=== PATIENT | female | born 1975 | race Caucasian/White ===

== ENCOUNTER 2016-10-09 06:35 | Emergency (ER) | payer BC ==
[2016-10-09 06:49] VITALS: O2SAT 98
--- NOTE | 2016-10-09 07:20 | ERPHSYRPT ---
- History of Present Illness Time Seen by Provider: 10/09/16 07:14 Source: patient Exam Limitations: no limitations Patient Subjective Stated Complaint: patietn still feel bad , thorat hurts and left side under breast is sore Triage Nursing Assessment: went to [facility] wednesday and was positive for strep and mono still not feeling better. has not been to work all week, patients lung sounds clear, bowel sounds x4, pulses equal bilateral radius Physician History: The patient is a 41-year-old female who comes in complaining of not feeling well and having pain in her left lower chest and left upper quadrant in the abdomen since last night. She denies nausea vomiting or diarrhea. 4 days ago she was seen in [facility] for a sore throat. A strep test and mono test both came back positive. She is sick to penicillin so she was treated with azithromycin. Her throat still feels "funny". She tells me she had mono in 2003 and had another occurrence of mono 2 years ago. Her past medical history is significant for hypertension, mononucleosis, strep pharyngitis, diverticulitis, and cholecystectomy. She does not drink alcohol. Timing/Duration: gradual onset Severity: moderate ENT Location: throat Prearrival Treatment: prescription meds Associated Symptoms: sore throat, other (abd pain) Allergies/Adverse Reactions: Penicillins Allergy (Verified 10/28/15 14:08) Sulfa (Sulfonamide Antibiotics) [Sulfa(Sulfonamide Antibiotics)] Allergy ( Verified 10/28/15 14:08) Home Medications: Aspirin 81 gm Chew [Baby Aspirin 81 mg Chew] 81 mg DAILY 12/17/14 [History ] Clonazepam [Klonopin] 0.5 mg DAILY 12/17/14 [History] Lisinopril 10 mg BID 12/17/14 [History] Venlafaxine HCl [Effexor] 37.5 mg DAILY 12/17/14 [History] Hx Tetanus, Diphtheria Vaccination/Date Given: Yes Hx Influenza Vaccination/Date Given: Yes Hx Pneumococcal Vaccination/Date Given: Yes Immunizations Up to Date: Yes - Review of Systems Constitutional: No Fever, No Chills Eyes: No Symptoms Ears, Nose, & Throat: Throat Pain Respiratory: No Cough, No Dyspnea Cardiac: No Chest Pain, No Edema, No Syncope Abdominal/Gastrointestinal: Abdominal Pain Genitourinary Symptoms: No Dysuria Musculoskeletal: No Back Pain, No Neck Pain Skin: No Rash Neurological: No Dizziness, No Focal Weakness, No Sensory Changes Psychological: No Symptoms Endocrine: No Symptoms Hematologic/Lymphatic: No Symptoms Immunological/Allergic: No Symptoms All Other Systems: Reviewed and Negative - Past Medical History Pertinent Past Medical History: Yes Neurological History: No Pertinent History ENT History: No Pertinent History Cardiac History: No Pertinent History Respiratory History: No Pertinent History Endocrine Medical History: No Pertinent History Musculoskeletal History: No Pertinent History, Other GI Medical History: No Pertinent History History: Other Psycho-Social History: Anxiety Female Reproductive Disorders: Other Other Medical History: mononucleosis - Past Surgical History Past Surgical History: Yes Neuro Surgical History: No Pertinent History Cardiac: No Pertinent History Respiratory: No Pertinent History Gastrointestinal: Cholecystectomy Musculoskeletal: No Pertinent History Female Surgical History: Hysterectomy - Social History Smoking Status: Never smoker Exposure to second hand smoke: No Drug Use: none Patient Lives Alone: No - Female History Hx Now: No - Nursing Vital Signs Nursing Vital Signs: Initial Vital Signs Temperature 97.7 F Temperature Source Oral Pulse Rate 59 Respiratory Rate 18 Blood Pressure [Right Arm] 105/65 Pain Intensity 9 - Physical Exam General Appearance: mild distress Eye Exam: bilateral eye: PERRL, EOMI Nasal Exam: normal inspection Throat Exam: pharynx normal, moist mucus membranes, No tonsillar exudate Neck Exam: tender lateral Cardiovascular/Respiratory Exam: normal breath sounds, regular rate/rhythm Abdominal Exam: tenderness (LUQ), spleenomegaly Neurologic Exam: alert, oriented x 3, sensation nml, No motor deficits Skin Exam: normal color, warm, dry SpO2 Interpretation: normal SpO2: 98 Oxygen Delivery: Room Air - Radiology Ultrasound Exam Left Abdomen Ultrasound: discussed w/radiologist, Other (mild splenomegaly per Dr Herrmann) Ordered Tests: Active Orders 24 hr Category Date Time Status Ultrasound Liver or Spleen [LIVER OR SPLEEN] [US] Stat Exams 10/09/16 08:43 Completed CBC W DIFF Stat Lab 10/09/16 07:49 Completed CMP Stat Lab 10/09/16 07:49 Completed CULTURE, THROAT Stat Lab 10/09/16 07:49 Received HCG QUALITATIVE,SERUM Stat Lab 10/09/16 08:00 Completed LIPASE Stat Lab 10/09/16 08:00 Completed [place] Screen Stat Lab 10/09/16 07:49 Completed STREP SCREEN-BETA A Stat Lab 10/09/16 07:49 Completed UA Stat Lab 10/09/16 08:00 Completed Lab/Rad Data: Laboratory Result Diagrams 10/09/16 07:49 10/09/16 07:49 Laboratory Results 10/09/16 10/09/16 10/09/16 Range/Units 08:00 08:00 08:00 WBC (4.0-10.5) K/mm3 RBC (4.1-5.4) M/mm3 Hgb (12.0-16.0) gm/dl Hct (35-47) % MCV (78-100) fl MCH (26-32) pg MCHC (32-36) g/dl RDW (11.5-14.0) % Plt Count (150-450) K/mm3 MPV (6-9.5) fl Gran % (36.0-66.0) % Lymphocytes % (24.0-44.0) % Monocytes % (0.0-12.0) % Eosinophils % (0.00-5.0) % Basophils % (0.0-0.4) % Basophils # (0-0.4) Sodium (136-145) mEq/L Potassium (3.5-5.1) mEq/L Chloride (98-107) mEq/L Carbon Dioxide (21-32) mEq/L Anion Gap (5-15) MEQ/L BUN (9-20) mg/dL Creatinine (0.55-1.30) mg/dl Estimated GFR ML/MIN Glucose (70-110) MG/DL Calcium (8.5-10.1) mg/dL Total Bilirubin (0.2-1.0) mg/dL AST (15-37) U/L ALT (12-78) U/L Alkaline Phosphatase (46-116) U/L Serum Total Protein (6.4-8.2) gm/dL Albumin (3.4-5.0) g/dL Lipase 120 (73-393) U/L Serum , Qual NEGATIVE (Negative) Ur Collection Type VOID Urine Color YELLOW (YELLOW) Urine Appearance CLEAR (CLEAR) Urine pH 5.0 (5-6) Ur Specific Butler 1.015 (1.005-1.025) Urine Protein NEGATIVE (Negative) Urine Glucose (UA) NEGATIVE (NEGATIVE) mg/dL Urine Ketones NEGATIVE (NEGATIVE) Urine Nitrite NEGATIVE (NEGATIVE) Urine Bilirubin NEGATIVE (NEGATIVE) Urine Urobilinogen 0.2 (0-1) mg/dL Urine WBC (Auto) NEGATIVE (NEGATIVE) Urine RBC (Auto) NEGATIVE (0-5) Cornelius/ul Monoscreen (Negative) Streptococcus Screen (Negative) Specimen Received 10/09/16 0842 10/09/16 10/09/16 10/09/16 Range/Units 07:49 07:49 07:49 WBC 8.0 (4.0-10.5) K/mm3 RBC 4.96 (4.1-5.4) M/mm3 Hgb 13.8 (12.0-16.0) gm/dl Hct 42.0 (35-47) % MCV 84.7 (78-100) fl MCH 27.8 (26-32) pg MCHC 32.9 (32-36) g/dl RDW 12.7 (11.5-14.0) % Plt Count 190 (150-450) K/mm3 MPV 10.6 H (6-9.5) fl Gran % 58.2 (36.0-66.0) % Lymphocytes % 29.8 (24.0-44.0) % Monocytes % 9.1 (0.0-12.0) % Eosinophils % 2.3 (0.00-5.0) % Basophils % 0.6 (0.0-0.4) % Basophils # 0.05 (0-0.4) Sodium 140 (136-145) mEq/L Potassium 4.1 (3.5-5.1) mEq/L Chloride 105 (98-107) mEq/L Carbon Dioxide 26.5 (21-32) mEq/L Anion Gap 12.2 (5-15) MEQ/L BUN 10 (9-20) mg/dL Creatinine 0.86 (0.55-1.30) mg/dl Estimated GFR > 60 ML/MIN Glucose 150 H (70-110) MG/DL Calcium 8.9 (8.5-10.1) mg/dL Total Bilirubin 0.4 (0.2-1.0) mg/dL AST 17 (15-37) U/L ALT 39 (12-78) U/L Alkaline Phosphatase 88 (46-116) U/L Serum Total Protein 7.0 (6.4-8.2) gm/dL Albumin 3.4 (3.4-5.0) g/dL Lipase (73-393) U/L Serum , Qual (Negative) Ur Collection Type Urine Color (YELLOW) Urine Appearance (CLEAR) Urine pH (5-6) Ur Specific Butler (1.005-1.025) Urine Protein (Negative) Urine Glucose (UA) (NEGATIVE) mg/dL Urine Ketones (NEGATIVE) Urine Nitrite (NEGATIVE) Urine Bilirubin (NEGATIVE) Urine Urobilinogen (0-1) mg/dL Urine WBC (Auto) (NEGATIVE) Urine RBC (Auto) (0-5) Cornelius/ul Monoscreen POSITIVE (Negative) Streptococcus Screen (Negative) Specimen Received 10/09/16 Range/Units 07:49 WBC (4.0-10.5) K/mm3 RBC (4.1-5.4) M/mm3 Hgb (12.0-16.0) gm/dl Hct (35-47) % MCV (78-100) fl MCH (26-32) pg MCHC (32-36) g/dl RDW (11.5-14.0) % Plt Count (150-450) K/mm3 MPV (6-9.5) fl Gran % (36.0-66.0) % Lymphocytes % (24.0-44.0) % Monocytes % (0.0-12.0) % Eosinophils % (0.00-5.0) % Basophils % (0.0-0.4) % Basophils # (0-0.4) Sodium (136-145) mEq/L Potassium (3.5-5.1) mEq/L Chloride (98-107) mEq/L Carbon Dioxide (21-32) mEq/L Anion Gap (5-15) MEQ/L BUN (9-20) mg/dL Creatinine (0.55-1.30) mg/dl Estimated GFR ML/MIN Glucose (70-110) MG/DL Calcium (8.5-10.1) mg/dL Total Bilirubin (0.2-1.0) mg/dL AST (15-37) U/L ALT (12-78) U/L Alkaline Phosphatase (46-116) U/L Serum Total Protein (6.4-8.2) gm/dL Albumin (3.4-5.0) g/dL Lipase (73-393) U/L Serum , Qual (Negative) Ur Collection Type Urine Color (YELLOW) Urine Appearance (CLEAR) Urine pH (5-6) Ur Specific Butler (1.005-1.025) Urine Protein (Negative) Urine Glucose (UA) (NEGATIVE) mg/dL Urine Ketones (NEGATIVE) Urine Nitrite (NEGATIVE) Urine Bilirubin (NEGATIVE) Urine Urobilinogen (0-1) mg/dL Urine WBC (Auto) (NEGATIVE) Urine RBC (Auto) (0-5) Cornelius/ul Monoscreen (Negative) Streptococcus Screen NEGATIVE (Negative) Specimen Received - Progress Progress: unchanged Discussed with : Kenroy Counseled pt/family regarding: lab results, diagnosis, need for follow-up, rad results - Departure Time of Disposition: 10:03 Departure Disposition: Home Clinical Impression: Splenomegaly Condition: Stable Critical Care Time: No Instructions: Fever (Symptom) -- Adult Additional Instructions: The ultrasound results show you have a mildly enlarged spleen today. I have discussed all of the laboratory and imaging study findings including the strep test and Monospot tests with Dr. Jasmine. Take Tylenol and ibuprofen as needed for pain. Continue with the azithromycin as directed. Avoid any trauma or abrupt physical contact to your abdomen. Follow-up with Dr. Jasmine on Wednesday at 3:30.
[2016-10-09 07:51] LABS: BASOPHIL % 0.6 % (0.0-0.4); Eosinophil % 2.3 % (0.00-5.0); Granulocytes % 58.2 % (36.0-66.0); Mean Cell Volume 84.7 fl (78-100); Mean Corpuscular Hemoglobin 27.8 pg (26-32); Mean Platelet Volume 10.6 fl (6-9.5); Monocytes % 9.1 % (0.0-12.0); Platelet Count 190 K/mm3 (150-450); Red Blood Count 4.96 M/mm3 (4.1-5.4); Red Cell Distribution Width 12.7 % (11.5-14.0)
[2016-10-09 08:09] LABS: Lymphocytes % 29.8 % (24.0-44.0)
[2016-10-09 08:21] LABS: ALBUMIN 3.4 g/dL (3.4-5.0); ALKALINE PHOSPHATASE 88 U/L (46-116); ANION GAP 12.2 MEQ/L (5-15); BILIRUBIN,TOTAL 0.4 mg/dL (0.2-1.0); BLOOD UREA NITROGEN 10 mg/dL (9-20); CHLORIDE 105 mEq/L (98-107); Carbon Dioxide 26.5 mEq/L (21-32); Glucose 150 MG/DL (70-110); Potassium 4.1 mEq/L (3.5-5.1); SGOT/AST 17 U/L (15-37); SGPT/ALT 39 U/L (12-78); SODIUM 140 mEq/L (136-145)
[2016-10-09 08:40] LABS: COMPLETE URINE MICROSCOPIC? NO; Collection Type VOID
--- NOTE | 2016-10-09 09:40 | XRAY ---
Indication: Mononucleosis. Two-dimensional sonogram of the spleen performed. Comparison: August 23, 2013. Spleen again homogeneous in echogenicity with normal color perfusion. Today the spleen measures 13 cm in greatest dimension. This was previously 11.5 cm. No perinephric fluid. Impression: Splenomegaly in an otherwise negative splenic sonogram.
[2016-10-09 10:18] VITALS: BP 117/56; PULSE 64
== END 2016-10-09 10:17 | disposition home or self-care (01) ==
LOC: ED 06:35
DX: R16.1 Splenomegaly, not elsewhere classified (principal); R07.0 Pain in throat; R10.12 Left upper quadrant pain
CPT/HCPCS: 36415; 76705; 80053; 81002; 83690; 84703; 85025; 86308; 87070; 87430; 99284

== ENCOUNTER 2017-05-23 12:59 | Emergency (ER) | payer BC ==
[2017-05-23] MEDS ORDERED: CLEOCIN 150 MG CAPSULE PO ONE (13:29)
[2017-05-23] MEDS ORDERED: Adacel Vial IM ONE ×2 (13:29→13:40)
[2017-05-23] MEDS ORDERED: MOTRIN 400 MG PO ONE (13:30)
[2017-05-23] MEDS ORDERED: XYLOCAINE 1% HCL 20 ML MDV IJ ONE (13:30)
--- NOTE | 2017-05-23 13:34 | ERPHSYRPT ---
- History of Present Illness Time Seen by Provider: 05/23/17 13:32 Source: patient Exam Limitations: no limitations Patient Subjective Stated Complaint: stepped on toothpick last night with left foot. pain and swelling today with foot. thinks a piece of the toothpick might still be in her foot. Triage Nursing Assessment: ambulated to room limping on left foot. red swollen area proximal to 5th toe left foot on bottom of foot. no drainage noted. Physician History: mild to mod ache pain of the left foot for one day after stepped on a toothpick , no active bleeding, no other injury, ambulatory Allergies/Adverse Reactions: Penicillins Allergy (Verified 05/23/17 13:22) Sulfa (Sulfonamide Antibiotics) [Sulfa(Sulfonamide Antibiotics)] Allergy ( Verified 05/23/17 13:22) Home Medications: Clonazepam [Klonopin] 0.5 mg DAILY 12/17/14 [History] Lisinopril 10 mg BID 12/17/14 [History] Venlafaxine HCl [Effexor] 37.5 mg DAILY 12/17/14 [History] Hx Tetanus, Diphtheria Vaccination/Date Given: No Hx Influenza Vaccination/Date Given: No Hx Pneumococcal Vaccination/Date Given: No - Review of Systems Skin: No Rash Neurological: No Dizziness - Past Medical History Pertinent Past Medical History: Yes Neurological History: No Pertinent History ENT History: No Pertinent History Cardiac History: No Pertinent History Respiratory History: No Pertinent History Endocrine Medical History: No Pertinent History Musculoskeletal History: No Pertinent History, Other GI Medical History: No Pertinent History History: Other Psycho-Social History: Anxiety Female Reproductive Disorders: Other Other Medical History: mononucleosis - Past Surgical History Past Surgical History: Yes Neuro Surgical History: No Pertinent History Cardiac: No Pertinent History Respiratory: No Pertinent History Gastrointestinal: Cholecystectomy Musculoskeletal: No Pertinent History Female Surgical History: Hysterectomy - Social History Smoking Status: Never smoker Exposure to second hand smoke: No Drug Use: none Patient Lives Alone: No - Female History Hx Now: No - Nursing Vital Signs Nursing Vital Signs: Initial Vital Signs Temperature 97.7 F 05/23/17 13:19 Pulse Rate 77 05/23/17 13:19 Respiratory Rate 16 05/23/17 13:19 Blood Pressure 111/74 05/23/17 13:19 O2 Sat by Pulse Oximetry 95 05/23/17 13:19 Pain Scale Pain Intensity 6 - Physical Exam General Appearance: no apparent distress Extremity Exam: other (tender plantar left forefoot and apparent fb in puncture wound, no exit wound, sen and pulses intact, nontender bony foot and ankle, no streaks, no sts, rowan) Neurologic Exam: alert, oriented x 3, cooperative Skin Exam: warm, dry SpO2 Interpretation: normal SpO2: 95 Procedures - Incision and Drainage Timeout: Performed Site: plantar left forefoot Anesthesia: 1% Lidocaine cc's of anesthesia: 2 Blade Size: other (18 g needle to extract a 3mm toothpick tip) I & D Procedure: betadine prep Results: other (no drainage) - Course Nursing assessment & vital signs reviewed: Yes Ordered Tests: Active Orders 24 hr Category Date Time Status FOOT (MINIMUM 3 VIEWS) Stat Exams 05/23/17 Taken Medication Summary Discontinued Medications Generic Name Dose Route Start Last Admin Trade Name Freq PRN Reason Stop Dose Admin Clindamycin HCl 300 mg 05/23/17 13:29 05/23/17 13:46 Cleocin 150 Mg Capsule PO 05/23/17 13:30 300 mg STAT ONE Administration Clindamycin HCl Confirm 05/23/17 13:39 Cleocin 150 Mg Capsule Administered 05/23/17 13:40 Dose 300 mg .ROUTE .STK-MED ONE Diphtheria/Tetanus/Acell Pertussis 0.5 ml 05/23/17 13:29 05/23/17 13:45 Adacel Vial IM 05/23/17 13:30 0.5 ml .ONCE ONE Administration Diphtheria/Tetanus/Acell Pertussis Confirm 05/23/17 13:40 Adacel Vial Administered 05/23/17 13:41 Dose 0.5 ml IM .STK-MED ONE Ibuprofen 400 mg 05/23/17 13:30 05/23/17 13:46 Motrin 400 Mg PO 05/23/17 13:31 400 mg STAT ONE Administration Ibuprofen Confirm 05/23/17 13:39 Motrin 400 Mg Administered 05/23/17 13:40 Dose 400 mg .ROUTE .STK-MED ONE Lidocaine HCl 5 ml 05/23/17 13:30 05/23/17 13:46 Xylocaine 1% Hcl 20 Ml Mdv IJ 05/23/17 13:31 5 ml STAT ONE Administration Lidocaine HCl Confirm 05/23/17 13:39 Xylocaine 1% Hcl 20 Ml Mdv Administered 05/23/17 13:40 Dose 5 ml .ROUTE .STK-MED ONE - Progress Progress: improved Progress Note: 05/23/17 15:11 foreign body toothpick tip removed Discussed with : Kenroy Will see patient in: office Counseled pt/family regarding: diagnosis, need for follow-up, rad results - Departure Time of Disposition: 15:12 Departure Disposition: Home Clinical Impression: Foreign body Condition: Stable Critical Care Time: No Referrals: ABISAI PAVON MD [Primary Care Provider] - Instructions: Removal of Foreign Body From Skin Additional Instructions: cleocin motrin wound care return if worse
[2017-05-23] MEDS ORDERED: XYLOCAINE 1% HCL 20 ML MDV ONE (13:39)
[2017-05-23] MEDS ORDERED: MOTRIN 400 MG ONE (13:39)
[2017-05-23] MEDS ORDERED: CLEOCIN 150 MG CAPSULE ONE (13:39)
[2017-05-23] MEDS ORDERED: BACIGUENT PACKET ONE (15:18)
[2017-05-23] MEDS ORDERED: BACIGUENT PACKET TP ONE (15:19)
[2017-05-23 15:27] VITALS: BP 105/70; PULSE 72; O2SAT 96
--- NOTE | 2017-05-23 19:44 | XRAY ---
Indication: Pain and erythema. Patient stepped on toothpick. Comparison: January 31, 2006. 3 nonweightbearing views of the left foot demonstrates interval enlarging moderate heel spurs. No acute fracture, suspicious bony lesions, or radiopaque foreign body.
== END 2017-05-23 15:27 | disposition home or self-care (01) ==
LOC: ED 12:59
DX: S90.852A Superficial foreign body, left foot, initial encounter (principal); W45.8XXA Other foreign body or object entering through skin, initial encounter
CPT/HCPCS: 73630; 90471; 90715; 99283; A9270-GY

== ENCOUNTER 2017-12-23 11:39 | Observation (INO) | payer BC ==
[2017-12-23] MEDS ORDERED: Phenergan 25 MG INJ IV PRN (11:54)
[2017-12-23] MEDS ORDERED: Sodium Chloride 0.9% 1000 ML 1,000 ML IV STA (11:54)
[2017-12-23 12:40] LABS: Appearance CLEAR (CLEAR); Bilirubin NEGATIVE (NEGATIVE); Blood NEGATIVE Ery/ul (0-5); Glucose 50 mg/dL (NEGATIVE); Ketones NEGATIVE (NEGATIVE); Leukocyte Esterase NEGATIVE (NEGATIVE); Nitrite NEGATIVE (NEGATIVE); Protein,Urine Dip NEGATIVE (Negative); Specific Gravity 1.025 (1.005-1.025); Urobilinogen NORMAL mg/dL (0-1)
[2017-12-23] MEDS: Zofran 4 MG/2 ML VIAL IV PRN ×2 (12:40→20:21)
[2017-12-23 12:59] LABS: ALBUMIN 4.7 g/dL (3.5-5.0); ALKALINE PHOSPHATASE 92 U/L (38-126); AMYLASE 52 U/L (30-110); ANION GAP 16.8 MEQ/L (5-15); BLOOD UREA NITROGEN 15 mg/dL (7-17); CHLORIDE 104 mmol/L (98-107); Calcium 9.7 mg/dL (8.4-10.2); Carbon Dioxide 24 mmol/L (22-30); Creatinine 1 0.71 mg/dL (0.52-1.04); Glucose 140 mg/dL (74-106); LIPASE 59 U/L (23-300); Potassium 4.3 mmol/L (3.5-5.1); SGOT/AST 25 U/L (14-36); SGPT/ALT 27 U/L (0-35); SODIUM 140 mmol/L (137-145)
[2017-12-23 13:05] LABS: BASOPHIL % 0.3 % (0.0-0.4); Basophil (Absolute #) 0.03 (0-0.4); Eosinophil % 1.6 % (0.00-5.0); Eosinophil (Absolute #) 0.14 (0-0.5); Granulocyte Absolute (ANC) 5.57 (1.4-6.9); Granulocytes % 64.1 % (36.0-66.0); Hematocrit 45.9 % (35-47); Hemoglobin 15.6 gm/dl (12.0-16.0); Lymphocytes % 25.3 % (24.0-44.0); Mean Cell Volume 83.3 fl (78-100); Mean Corpuscular Hemoglobin 28.3 pg (26-32); Mean Platelet Volume 11.1 fl (6-9.5); Monocyte (Absolute #) 0.76 (0.0-1.3); Monocytes % 8.7 % (0.0-12.0); Platelet Count 241 K/mm3 (150-450); Red Blood Count 5.51 M/mm3 (4.1-5.4); Red Cell Distribution Width 12.9 % (11.5-14.0); White Blood Count 8.7 K/mm3 (4.0-10.5)
[2017-12-23] MEDS: Sodium Chloride 0.9% 1000 ML 1,000 ML IV SCH (13:56)
[2017-12-23] MEDS ORDERED: Klonopin 0.5 MG PO PRN (13:57)
[2017-12-23] MEDS: TYLENOL 325 MG PO PRN (20:17)
[2017-12-23] MEDS: EFFEXOR 37.5 MG PO SCH (21:26)
[2017-12-24] MEDS: Sodium Chloride 0.9% 1000 ML 1,000 ML IV SCH ×3 (00:15→22:41)
[2017-12-24] MEDS: DILAUDID 2 MG INJECTION IV PRN ×3 (09:00→17:27)
--- NOTE | 2017-12-24 12:43 | XRAY ---
Indication: Right lower quadrant pain and nausea one week. Multiple contiguous axial images obtained through the abdomen and pelvis without contrast as ordered. Comparison: December 17, 2014. Lung bases demonstrates minimal bibasilar dependent atelectasis and stable right lower lobe calcified granuloma. No infiltrate or effusion. Heart is not enlarged. Noncontrasted stomach and bowel loops appear nonobstructed. Normal appendix. Again mild scattered descending and sigmoid colonic diverticulosis. No evidence for diverticulitis or free fluid/air. Stable fatty liver, cholecystectomy, and hysterectomy. Remaining liver, pancreas, spleen, adrenal glands, kidneys, ureters, bladder, and aorta appear unremarkable for noncontrast exam. Osseous structures intact with minimal spinal degenerative changes. No ventral or inguinal hernias. Impression: 1. Stable colonic diverticulosis and fatty liver. 2. No new or acute intra-abdominal/pelvic abnormalities on this noncontrast exam. CT DI 27.79
[2017-12-24] MEDS: Zofran 4 MG/2 ML VIAL IV PRN (13:27)
--- NOTE | 2017-12-24 14:59 | PROG NOTE ---
DATE: 12/24/2017 Chart is reviewed and events noted. The patient complains of right lower abdominal pain, nausea. She states her symptoms are getting worse since yesterday. Pain medication from this morning helped her some. Appears comfortable, not in acute distress. PHYSICAL EXAMINATION: VITAL SIGNS: Blood pressure 109/57, heart rate 75, respiratory rate 18, temperature 98.7F. Oxygen saturation 94 to 96% on room air. HEENT: Normocephalic. No pallor or icterus is noted. NECK: No JVD is present. CVS: S1, S2 present. RESPIRATORY: Breath sounds are bilaterally diminished and clear to auscultation. ABDOMEN: Obese, soft, right lower quadrant tenderness is present. NEURO: She is alert, oriented x3. EXTREMITIES: No edema on bilateral lower extremities. LABORATORY DATA AND TESTS: There are no new labs today. CT scan of abdomen and pelvis from today showed stable colonic diverticulosis and fatty liver. No new or acute intra-abdominal or pelvic abnormalities on noncontrast exam. Medications were reviewed. ASSESSMENT: A 42 year old woman with impression: 1) Abdominal pain, right lower quadrant. 2) Nausea. 3) History of anxiety. PLAN: Will continue PRN analgesics, antiemetic. Surgery consultation. Will add empiric antibiotics. The plan was discussed with the patient. She seems to be in understanding and agreement. Discussed with patient's nurse,
[2017-12-24] MEDS: Levofloxacin 500MG/100ML D5W 500 MG/100 ML BAG IV SCH (15:07)
[2017-12-24] MEDS: FLAGYL 500 MG IVPB 500 MG/100 ML BAG IV SCH ×2 (17:27→23:48)
[2017-12-24] MEDS: EFFEXOR 37.5 MG PO SCH (21:57)
[2017-12-24] MEDS: TYLENOL 325 MG PO PRN (22:39)
[2017-12-25] MEDS: FLAGYL 500 MG IVPB 500 MG/100 ML BAG IV SCH ×2 (05:39→11:52)
[2017-12-25 07:08] VITALS: O2SAT 98
[2017-12-25] MEDS: Levofloxacin 500MG/100ML D5W 500 MG/100 ML BAG IV SCH (09:37)
[2017-12-25] MEDS: Sodium Chloride 0.9% 1000 ML 1,000 ML IV SCH (10:20)
[2017-12-25 12:11] VITALS: BP 94/49; PULSE 74
--- NOTE | 2017-12-27 11:04 | DS ---
DISCHARGE DIAGNOSES: 1) ABDOMINAL PAIN, RIGHT LOWER QUADRANT IMPROVED. 2) NAUSEA, RESOLVED. 3) ANXIETY. CONSULTANTS: Dr. Alonso consulted over the phone. HOSPITAL COURSE: Christine Gutierrez is a 42 year-old woman with past medical history of anxiety and obesity. She was seen by Dr. Jasmine in the office on 12/23/2017 with symptoms of right lower abdominal pain, nausea and was admitted for possible diagnosis of colitis. Lab work up on admission showed unremarkable CBC. CMP was notable for glucose 140, lactic acid was within normal limits. UA negative. The patient was placed on IV fluids, PRN antiemetic. The patient did continue to have right lower quadrant pain and IV analgesics were added. She had underwent abdomen and pelvis CT on 12/24/2017 a.m. which showed stable colonic diverticulosis and fatty liver. No new or acute intra-abdominal/pelvic abnormalities. In view of the patient's symptoms surgery consultation was requested. Also the patient was started on empiric antibiotics (Levaquin and Flagyl). During her further course she improved clinically. Surgery had been contacted by phone by nursing staff and they advised advancing the patient's diet, follow up in the office and possible colonoscopy at later date. The patient was started on diet that was advanced as tolerated and she is tolerating that well. Her symptoms of abdominal pain and nausea have improved. At the time of this evaluation she is alert, awake and comfortable. She complains of occasional nausea but overall much better. She states her right lower abdominal pain has improved as well. She is tolerating diet, denies any other new complaints. PHYSICAL EXAMINATION: VITAL SIGNS: Blood pressure 94/49, heart rate 74, respiratory rate 20, temperature 97.8F. Oxygen saturation 98%. HEENT: No pallor or icterus is noted. NECK: No JVD is present. CVS: S1, S2 present. RESPIRATORY: Breath sounds are bilaterally diminished and clear to auscultation. ABDOMEN: Obese, soft, nontender. NEURO: She is alert, oriented x3. EXTREMITIES: No edema on bilateral lower extremities. LABORATORY DATA AND TESTS: No new labs today. Medications were reviewed. ASSESSMENT: As outlined in discharge diagnosis. PLAN: A 42 year-old woman with history of anxiety, obesity was admitted with right lower abdominal pain with possible diagnosis of colitis. She underwent work up and treatment as noted. She has improved clinically and is tolerating diet. She otherwise remained hemodynamically stable. Overall she is feeling much better symptomatically and is wishing to go home. She ambulated with stable oxygen saturation. As per surgery, the patient's diet was advanced and she tolerated that well. Surgical consultation could not be obtained while the patient was inpatient. They have advised the patient follow up in their office on 12/27/2017 and additional work up will be done as outpatient. After discussion with surgical tech on the case the patient has been discharged in stable condition. Please refer to discharge medication list from 12/25/2017 for details of medications on discharge. I have advised the patient to continue to drink ample p.o. fluids, continue with soft bland diet. I have advised to start discharge medications as directed. Compliance with diet and medication was stressed. Complete cessation of smoking, alcohol intake if any was stressed. I advised her to keep her follow up appointment. I advised her to follow up with Dr. Jasmine in one week and with surgery as scheduled. Compliance with diet and medications, follow up in one week was stressed with the patient. I advised her to return to the Emergency [facility] if any new signs and symptoms or reappearance of previous signs and symptoms are noted. The patient's clinical condition, work-up results and plan of management and plan after discharge were outlined and discussed with the patient in detail. She seems to be in understanding and agreement. The plan was discussed with patient's nurse, Yumiko.
== END 2017-12-25 15:05 | disposition home or self-care (01) ==
LOC: MED SURG 11:39
PROVIDERS: ADMIT General Practice; ATTEND General Practice
DX: R10.31 Right lower quadrant pain (principal); R11.0 Nausea; F41.9 Anxiety disorder, unspecified; A09 Infectious gastroenteritis and colitis, unspecified; I10 Essential (primary) hypertension; K57.30 Diverticulosis of large intestine without perforation or abscess without bleeding; Z87.891 Personal history of nicotine dependence; Z79.899 Other long term (current) drug therapy; K76.0 Fatty (change of) liver, not elsewhere classified
CPT/HCPCS: 36415; 74176; 80053; 81002; 82150; 83605; 83690; 85025; G0378; J1170; J1956; J2405; J2550; A9270-GY

== ENCOUNTER 2018-04-20 13:30 | Observation (INO) | payer BC ==
[2018-04-20] MEDS ORDERED: PROVENTIL 2.5 MG/3 ML NEB IH ONE ×2 (13:39→13:46)
[2018-04-20] MEDS ORDERED: Sodium Chloride 0.9% 1000 ML 1,000 ML IV STA (13:39)
[2018-04-20] MEDS ORDERED: Pepcid 20 MG VIAL IV ONE ×2 (13:39→13:45)
[2018-04-20] MEDS ORDERED: BENADRYL 50 MG/ML IV ONE (13:39)
[2018-04-20] MEDS ORDERED: solu-CORTEF 100MG IV ONE (13:39)
[2018-04-20] MEDS ORDERED: Zofran 4 MG/2 ML VIAL IV ONE (13:39)
[2018-04-20] MEDS ORDERED: BENADRYL 50 MG/ML ONE (13:45)
[2018-04-20] MEDS ORDERED: Sodium Chloride 0.9% 1000 ML 1,000 ML ONE (13:45)
[2018-04-20] MEDS ORDERED: solu-CORTEF 100MG ONE (13:45)
--- NOTE | 2018-04-20 13:59 | XRAY ---
Indication: Short of breath. Possible allergic reaction. Comparison: April 19, 2018. PA/lateral chest demonstrates normal heart, lungs, and bony thorax again with a few incidental calcified granulomas. No new/acute findings.
[2018-04-20] MEDS ORDERED: Zofran 4 MG/2 ML VIAL ONE ×2 (14:09→14:13)
[2018-04-20 14:54] LABS: ALBUMIN 4.6 g/dL (3.5-5.0); ALKALINE PHOSPHATASE 99 U/L (38-126); ANION GAP 17.5 MEQ/L (5-15); BLOOD UREA NITROGEN 9 mg/dL (7-17); CHLORIDE 99 mmol/L (98-107); Calcium 10.2 mg/dL (8.4-10.2); Carbon Dioxide 29 mmol/L (22-30); Creatinine 1 0.71 mg/dL (0.52-1.04); Glucose 111 mg/dL (74-106); Potassium 4.5 mmol/L (3.5-5.1); SGOT/AST 25 U/L (14-36); SGPT/ALT 23 U/L (0-35); SODIUM 141 mmol/L (137-145); Total Protein 7.8 g/dL (6.3-8.2)
[2018-04-20 15:00] LABS: BASOPHIL % 0.6 % (0.0-0.4); Basophil (Absolute #) 0.06 (0-0.4); Eosinophil (Absolute #) 0.43 (0-0.5); Granulocyte Absolute (ANC) 6.63 (1.4-6.9); Granulocytes % 62.2 % (36.0-66.0); Hematocrit 44.1 % (35-47); Hemoglobin 14.4 gm/dl (12.0-16.0); Lymphocyte (Absolute #) 2.67 (1.0-4.6); Lymphocytes % 25.1 % (24.0-44.0); Mean Cell Volume 84.2 fl (78-100); Mean Corpuscular Hemoglobin 27.5 pg (26-32); Mean Corpuscular Hgb Concent. 32.7 g/dl (32-36); Mean Platelet Volume 10.9 fl (6-9.5); Monocyte (Absolute #) 0.86 (0.0-1.3); Monocytes % 8.1 % (0.0-12.0); Platelet Count 317 K/mm3 (150-450); Red Blood Count 5.24 M/mm3 (4.1-5.4); Red Cell Distribution Width 13.1 % (11.5-14.0); White Blood Count 10.7 K/mm3 (4.0-10.5)
--- NOTE | 2018-04-20 15:37 | ERPHSYRPT ---
- History of Present Illness Source: patient Exam Limitations: no limitations Patient Subjective Stated Complaint: pt states "I am allergic to PCN and they gave me augmentin and now my throat feel tight and i have a rash." Triage Nursing Assessment: Pt alert and oriented X 3, skin pwd. PT ambulates with an upright steady gait, able to speak in clear full sentences. Physician History: Pt is a pleasant 43 y/o female, that was prescibed Augmentin by her PCP. Pt does have an allergy for PCN. As she was told that she will not react to the medication, she took the tablet and developed neck edema, swelling and "tingling ". Pt presented to the ED with those symptoms. Pt denies F/C/S. No cough. edema that is submandibular, and some SOB. No N/V/D or abdominal pain. Pt complains of rash. Timing/Duration: abrupt onset Severity: moderate ENT Location: throat Prearrival Treatment: no prearrival treatment Modifying Factors: Improves With: nothing Associated Symptoms: facial pain/swelling Allergies/Adverse Reactions: Penicillins Allergy (Verified 05/23/17 13:22) Sulfa (Sulfonamide Antibiotics) [Sulfa(Sulfonamide Antibiotics)] Allergy ( Verified 05/23/17 13:22) Home Medications: Clonazepam [Klonopin] 0.5 mg PO DAILY PRN 12/17/14 [History] Venlafaxine HCl [Effexor] 37.5 mg PO HS 12/17/14 [History] Hx Tetanus, Diphtheria Vaccination/Date Given: Yes Hx Influenza Vaccination/Date Given: Yes Hx Pneumococcal Vaccination/Date Given: No Immunizations Up to Date: Yes - Review of Systems Constitutional: No Fever, No Chills Eyes: No Symptoms Ears, Nose, & Throat: Mouth Swelling (Sub mandibular), Throat Swelling Respiratory: Other (SOB) Cardiac: No Chest Pain, No Edema, No Syncope Abdominal/Gastrointestinal: No Abdominal Pain, No Nausea, No Vomiting, No Diarrhea Genitourinary Symptoms: No Dysuria Musculoskeletal: No Back Pain, No Neck Pain Skin: No Rash Neurological: No Dizziness, No Focal Weakness, No Sensory Changes Psychological: No Symptoms Endocrine: No Symptoms All Other Systems: Reviewed and Negative - Past Medical History Pertinent Past Medical History: Yes Neurological History: No Pertinent History ENT History: No Pertinent History Cardiac History: No Pertinent History Respiratory History: No Pertinent History Endocrine Medical History: No Pertinent History Musculoskeletal History: No Pertinent History, Other GI Medical History: Diverticulitis, Diverticulosis History: Other Psycho-Social History: Anxiety Female Reproductive Disorders: Other Other Medical History: mononucleosis - Past Surgical History Past Surgical History: Yes Neuro Surgical History: No Pertinent History Cardiac: No Pertinent History Respiratory: No Pertinent History Gastrointestinal: Cholecystectomy Musculoskeletal: No Pertinent History Female Surgical History: Hysterectomy - Social History Smoking Status: Former smoker Exposure to second hand smoke: No Drug Use: none Patient Lives Alone: No - Female History Hx Last Menstrual Period: total hysterectomy Hx Now: No - Nursing Vital Signs Nursing Vital Signs: Initial Vital Signs Temperature 99.0 F 04/20/18 13:37 Pulse Rate 88 04/20/18 13:37 Respiratory Rate 18 04/20/18 13:37 Blood Pressure 144/116 04/20/18 13:37 O2 Sat by Pulse Oximetry 99 04/20/18 13:37 Pain Scale Pain Intensity 3 - Physical Exam General Appearance: moderate distress Eye Exam: bilateral eye: PERRL, EOMI Nasal Exam: normal inspection Throat Exam: pharynx normal, moist mucus membranes, pharynx swelling, No tonsillar exudate Neck Exam: supple, trachea midline (sub mandibular swelling) Cardiovascular/Respiratory Exam: normal breath sounds, regular rate/rhythm Abdominal Exam: non-tender, soft Neurologic Exam: alert, oriented x 3, sensation nml, No motor deficits Skin Exam: normal color, warm, dry SpO2: 97 Oxygen Delivery: Room Air - Radiology Exams Chest X-ray Interpretation: Reviewed by me (No new or acute findings.) Ordered Tests: Active Orders 24 hr Category Date Time Status Service Writer Advisor STAT Care 04/20/18 13:39 Active EKG-ER Only STAT Care 04/20/18 13:39 Active IV Insertion STAT Care 04/20/18 13:39 Active Oxygen-ED Only NON-REBREATHER 100% Care 04/20/18 13:39 Active CHEST 1 VIEW (PORTABLE) Stat Exams 04/20/18 13:39 Completed CBC W DIFF Stat Lab 04/20/18 13:59 Completed CMP Stat Lab 04/20/18 13:59 Completed Glucose,Critical Care Urgent Lab 04/20/18 13:39 Ordered HCG,QUALITATIVE URINE Stat Lab 04/20/18 13:39 Uncollected Respiratory Nebulizer STAT RT 04/20/18 13:41 Completed Respiratory Therapy Assessment DAILY RT 04/20/18 13:52 Active Medication Summary Discontinued Medications Generic Name Dose Route Start Last Admin Trade Name Stevenson HENDRICKSN Reason Stop Dose Admin Albuterol Sulfate 2.5 mg 04/20/18 13:39 04/20/18 13:48 Proventil 2.5 Mg/3 Ml Neb IH 04/20/18 13:40 2.5 mg STAT ONE Administration Albuterol Sulfate Confirm 04/20/18 13:46 Proventil 2.5 Mg/3 Ml Neb Administered 04/20/18 13:47 Dose 2.5 mg IH .STK-MED ONE Diphenhydramine HCl 50 mg 04/20/18 13:39 04/20/18 13:57 Benadryl 50 Mg/Ml IV 04/20/18 13:40 50 mg STAT ONE Administration Diphenhydramine HCl Confirm 04/20/18 13:45 Benadryl 50 Mg/Ml Administered 04/20/18 13:46 Dose 50 mg .ROUTE .STK-MED ONE Famotidine 20 mg 04/20/18 13:39 04/20/18 13:57 Pepcid 20 Mg Vial IV 04/20/18 13:40 20 mg STAT ONE Administration Famotidine Confirm 04/20/18 13:45 Pepcid 20 Mg Vial Administered 04/20/18 13:46 Dose 20 mg IV .STK-MED ONE Hydrocortisone Sodium Succinate 100 mg 04/20/18 13:39 04/20/18 13:57 Solu-Cortef 100mg IV 04/20/18 13:40 100 mg STAT ONE Administration Hydrocortisone Sodium Succinate Confirm 04/20/18 13:45 Solu-Cortef 100mg Administered 04/20/18 13:46 Dose 100 mg .ROUTE .STK-MED ONE Sodium Chloride 1,000 mls @ 999 mls/hr 04/20/18 13:39 04/20/18 13:57 Sodium Chloride 0.9% 1000 Ml IV 04/20/18 14:39 999 mls/hr .Q1H1M STA Administration Sodium Chloride Confirm 04/20/18 13:45 Sodium Chloride 0.9% 1000 Ml Administered 04/20/18 13:46 Dose 1,000 mls @ ud .ROUTE .STK-MED ONE Ondansetron HCl 8 mg 04/20/18 13:39 04/20/18 14:12 Zofran 4 Mg/2 Ml Vial IV 04/20/18 13:40 8 mg STAT ONE Administration Ondansetron HCl Confirm 04/20/18 14:09 Zofran 4 Mg/2 Ml Vial Administered 04/20/18 14:10 Dose 4 mg .ROUTE .STK-MED ONE Ondansetron HCl Confirm 04/20/18 14:13 Zofran 4 Mg/2 Ml Vial Administered 04/20/18 14:14 Dose 4 mg .ROUTE .STK-MED ONE Lab/Rad Data: Laboratory Result Diagrams 04/20/18 13:59 04/20/18 13:59 Laboratory Results 04/20/18 04/20/18 Range/Units 13:59 13:59 WBC 10.7 H (4.0-10.5) K/mm3 RBC 5.24 (4.1-5.4) M/mm3 Hgb 14.4 (12.0-16.0) gm/dl Hct 44.1 (35-47) % MCV 84.2 (78-100) fl MCH 27.5 (26-32) pg MCHC 32.7 (32-36) g/dl RDW 13.1 (11.5-14.0) % Plt Count 317 (150-450) K/mm3 MPV 10.9 H (6-9.5) fl Gran % 62.2 (36.0-66.0) % Eos # (Auto) 0.43 (0-0.5) Absolute Lymphs (auto) 2.67 (1.0-4.6) Absolute Monos (auto) 0.86 (0.0-1.3) Lymphocytes % 25.1 (24.0-44.0) % Monocytes % 8.1 (0.0-12.0) % Eosinophils % 4.0 (0.00-5.0) % Basophils % 0.6 (0.0-0.4) % Absolute Granulocytes 6.63 (1.4-6.9) Basophils # 0.06 (0-0.4) Sodium 141 (137-145) mmol/L Potassium 4.5 (3.5-5.1) mmol/L Chloride 99 (98-107) mmol/L Carbon Dioxide 29 (22-30) mmol/L Anion Gap 17.5 H (5-15) MEQ/L BUN 9 (7-17) mg/dL Creatinine 0.71 (0.52-1.04) mg/dL Estimated GFR > 60.0 ML/MIN Glucose 111 H (74-106) mg/dL Calcium 10.2 (8.4-10.2) mg/dL Total Bilirubin 0.50 (0.2-1.3) mg/dL AST 25 (14-36) U/L ALT 23 (0-35) U/L Alkaline Phosphatase 99 (38-126) U/L Serum Total Protein 7.8 (6.3-8.2) g/dL Albumin 4.6 (3.5-5.0) g/dL - Progress Progress: improved Discussed with : Kenroy Will see patient in: hospital (observation) Counseled pt/family regarding: lab results (Pt did agree to observation in the hospital, overnight), rad results - Departure Time of Disposition: 15:45 Departure Disposition: Observation Clinical Impression: Allergic reaction caused by a drug Condition: Stable Critical Care Time: No Referrals: ABISAI PAVON MD [Primary Care Provider] - Additional Instructions: Pt presented to the ER with allergic reaction to PCN. Pt is treated with hydrocortisone, Pepcid and Benadryl. She is improved, and will be placed in observation with tele. Her PCP is aware, and agreeable.
[2018-04-20] MEDS ORDERED: PROVENTIL 2.5 MG/3 ML NEB IH PRN (15:48)
[2018-04-20] MEDS ORDERED: TYLENOL 325 MG PO PRN (15:48)
[2018-04-20] MEDS ORDERED: Klonopin 0.5 MG PO PRN (17:53)
[2018-04-20] MEDS: BENADRYL 50 MG/ML IV SCH ×2 (18:30→23:27)
[2018-04-20] MEDS ORDERED: Zestril 5 MG PO SCH (22:00)
[2018-04-20] MEDS ORDERED: Effexor ER 37.5 MG PO SCH (22:00)
[2018-04-20] MEDS: Pepcid 20 MG VIAL IV SCH (22:12)
[2018-04-21] MEDS: BENADRYL 50 MG/ML IV SCH (05:29)
[2018-04-21 07:03] VITALS: O2SAT 96
[2018-04-21] MEDS: Pepcid 20 MG VIAL IV SCH (10:11)
[2018-04-21 10:54] VITALS: BP 101/57; PULSE 70
--- NOTE | 2018-04-21 12:24 | PCM.SSS ---
History of Present Illness - Chief Complaint Chief Complaint: Shortness of Breath for 1 days History of Present Illness: is a 43 year old female, that was prescibed Augmentin by her PCP. Pt does have an allergy for PCN. As she was told that she will not react to the medication, she took the tablet and developed neck edema, swelling and "tingling ". Pt presented to the ED with those symptoms. Pt denies F/C/S. No cough. edema that is submandibular, and some SOB. No N/V/D or abdominal pain. Pt complains of rash. Timing/Duration: abrupt onset Severity: moderate ENT Location: throat Prearrival Treatment: no prearrival treatment Modifying Factors: Improves With: nothing Associated Symptoms: facial pain/swelling. - Review of Systems Constitutional: No Fever, No Chills Eyes: No Symptoms Ears, Nose, & Throat: No Symptoms, Throat Swelling Respiratory: Short Of Breath, No Cough Cardiac: No Chest Pain, No Edema, No Syncope Abdominal/Gastrointestinal: No Abdominal Pain, No Nausea, No Vomiting, No Diarrhea Genitourinary Symptoms: No Dysuria Musculoskeletal: No Back Pain, No Neck Pain Skin: No Rash Neurological: No Dizziness, No Focal Weakness, No Sensory Changes Psychological: No Symptoms Endocrine: No Symptoms Hematologic/Lymphatic: No Symptoms Immunological/Allergic: No Symptoms Medications & Allergies Home Medications: Home Medication List Clonazepam [Klonopin] 0.5 mg PO DAILY PRN PRN 12/17/14 [History Confirmed ] Venlafaxine HCl [Effexor] 37.5 mg PO HS 12/17/14 [History Confirmed 04/20/18] Lisinopril [Zestril] 2.5 mg PO DAILY 04/20/18 [History Confirmed 04/20/18] Ciprofloxacin/Ciprofloxa HCl [Cipro Xr 500 mg Tablet] 500 mg PO BID #14 tbmp.24hr 04/21/18 [Rx] Metronidazole 500 mg [Flagyl 500 MG] 500 mg PO TID #15 tablet 04/21/18 [Rx ] Allergies/Adverse Reactions: Allergies Allergy/AdvReac Type Severity Reaction Status Date / Time amoxicillin Allergy Verified 04/20/18 17:13 Penicillins Allergy Verified 04/20/18 17:14 Sulfa (Sulfonamide Allergy Verified 04/20/18 17:14 Antibiotics) [Sulfa(Sulfonamide Antibiotics)] - Past Medical History Past Medical History: Yes Neurological History: No Pertinent History ENT History: No Pertinent History Cardiac History: No Pertinent History Respiratory History: No Pertinent History Endocrine Medical History: No Pertinent History Musculoskelatal History: No Pertinent History, Other GI Medical History: Diverticulitis, Diverticulosis History: Other Pyscho-Social History: Anxiety, Depression Reproductive Disorders: Endometriosis, Other Comment: mononucleosis - Female History Hx Last Menstrual Period: total hysterectomy Are you now?: No - Past Surgical History Past Surgical History: Yes Neuro Surgical History: No Pertinent History Cardiac History: No Pertinent History Respiratory Surgery: No Pertinent History GI Surgical History: Bowel Surgery, Cholecystectomy Musculskeletal Surgical Hx: No Pertinent History Female Surgical History: Hysterectomy Other Surgical History: bowel resection on 04/06/18. - Social History Smoking Status: Former smoker Exposure to second hand smoke: No Alcohol: None Drug Use: none - Physical Exam Vital Signs: Vital Signs - 24 hr Temp Pulse Resp BP Pulse Ox 04/21/18 10:52 98.7 F 70 20 101/57 96 04/21/18 07:02 98.7 F 62 18 100/55 96 04/21/18 04:00 98.3 F 73 18 106/53 94 L 04/20/18 23:54 98.8 F 81 16 99/57 95 04/20/18 20:06 99.2 F 87 16 90/51 93 L 04/20/18 16:30 96 04/20/18 16:29 98.9 F 83 18 108/61 96 04/20/18 16:24 98.9 F 83 18 108/61 96 04/20/18 15:48 98.9 F 83 108/61 96 04/20/18 15:47 97 04/20/18 15:44 99.0 F 80 18 102/81 98 04/20/18 14:47 99.0 F 82 16 103/81 97 04/20/18 13:52 72 18 100 04/20/18 13:37 99.0 F 88 18 144/116 99 General Appearance: no apparent distress, alert Neurologic Exam: alert, oriented x 3, cooperative, normal mood/affect, nml cerebellar function, nml station & gait, sensation nml, No motor deficits Eye Exam: PERRL/EOMI, eyes nml inspection Ears, Nose, Throat Exam: normal ENT inspection, TMs normal, pharynx normal, moist mucous membranes Neck Exam: normal inspection, non-tender, supple, full range of motion Respiratory Exam: normal breath sounds, lungs clear, No respiratory distress Cardiovascular Exam: regular rate/rhythm, normal heart sounds, normal peripheral pulses Gastrointestinal/Abdomen Exam: soft, normal bowel sounds, No tenderness, No mass Back Exam: normal inspection, normal range of motion, No CVA tenderness, No vertebral tenderness Extremity Exam: normal inspection, normal range of motion, pelvis stable Skin Exam: normal color, warm, dry, No rash Lymphatic Exam: No adenopathy Results - Labs Lab/Micro Results: Accuchecks Accucheck Value: 101 Lab Results-Last 24 Hours 04/20/18 04/20/18 04/20/18 Range/Units 13:59 13:59 18:27 WBC 10.7 H (4.0-10.5) K/mm3 RBC 5.24 (4.1-5.4) M/mm3 Hgb 14.4 (12.0-16.0) gm/dl Hct 44.1 (35-47) % MCV 84.2 (78-100) fl MCH 27.5 (26-32) pg MCHC 32.7 (32-36) g/dl RDW 13.1 (11.5-14.0) % Plt Count 317 (150-450) K/mm3 MPV 10.9 H (6-9.5) fl Gran % 62.2 (36.0-66.0) % Eos # (Auto) 0.43 (0-0.5) Absolute Lymphs (auto) 2.67 (1.0-4.6) Absolute Monos (auto) 0.86 (0.0-1.3) Lymphocytes % 25.1 (24.0-44.0) % Monocytes % 8.1 (0.0-12.0) % Eosinophils % 4.0 (0.00-5.0) % Basophils % 0.6 (0.0-0.4) % Absolute Granulocytes 6.63 (1.4-6.9) Basophils # 0.06 (0-0.4) Sodium 141 (137-145) mmol/L Potassium 4.5 (3.5-5.1) mmol/L Chloride 99 (98-107) mmol/L Carbon Dioxide 29 (22-30) mmol/L Anion Gap 17.5 H (5-15) MEQ/L BUN 9 (7-17) mg/dL Creatinine 0.71 (0.52-1.04) mg/dL Estimated GFR > 60.0 ML/MIN Glucose 111 H (74-106) mg/dL Calcium 10.2 (8.4-10.2) mg/dL Total Bilirubin 0.50 (0.2-1.3) mg/dL AST 25 (14-36) U/L ALT 23 (0-35) U/L Alkaline Phosphatase 99 (38-126) U/L Serum Total Protein 7.8 (6.3-8.2) g/dL Albumin 4.6 (3.5-5.0) g/dL Urine HCG, Qual NEGATIVE (Negative) Accuchecks Accucheck Value: 101 - Radiology Impressions Radiology Exams & Impressions: Radiology Procedures Category Date Time Status CHEST 1 VIEW (PORTABLE) Stat Exams 04/20/18 13:39 Completed - Other Procedures and Tests Respiratory Therapy 04/20/18 13:52 Respiratory Therapy Assessment DAILY 04/20/18 15:48 Oxygen NASAL CANNULA 2 lpm Assessment/Plan (1) Allergic reaction caused by a drug Current Visit: Yes Status: Acute Onset Date: ~04/20/18 Qualifiers: Encounter type: subsequent encounter Qualified Code(s): T78.40XD - Allergy , unspecified, subsequent encounter Code(s): T78.40XA - ALLERGY, UNSPECIFIED, INITIAL ENCOUNTER Hospital Summary - Hospital Course Hospital Course: Last Vital Signs Temp 98.7 F 04/21/18 10:52 Pulse 70 04/21/18 10:52 Resp 20 04/21/18 10:52 BP 101/57 04/21/18 10:52 Pulse Ox 96 04/21/18 10:52 Allergies amoxicillin Allergy (Verified 04/20/18 17:13) Penicillins Allergy (Verified 04/20/18 17:14) Sulfa (Sulfonamide Antibiotics) [Sulfa(Sulfonamide Antibiotics)] Allergy ( Verified 04/20/18 17:14) Active Medications Acetaminophen (Tylenol 325 Mg) 650 mg PO Q4H PRN PRN PRN Reason: PAIN AND/OR FEVER Stop: 05/20/18 15:47 Albuterol Sulfate (Proventil 2.5 Mg/3 Ml Neb) 2.5 mg IH Q4H PRN PRN PRN Reason: SHORTNESS OF BREATH/WHEEZING Stop: 05/20/18 15:47 Clonazepam (Klonopin 0.5 Mg) 0.5 mg PO DAILY PRN PRN PRN Reason: ANXIETY Stop: 05/20/18 17:52 Diphenhydramine HCl (Benadryl 50 Mg/Ml) 50 mg IV Q6HT SUSAN Stop: 05/20/18 17:59 Last Admin: 04/21/18 05:29 Dose: 50 mg Famotidine (Pepcid 20 Mg Vial) 20 mg IV Q12HT SUSAN Stop: 05/20/18 21:59 Last Admin: 04/21/18 10:11 Dose: Not Given Lisinopril (Zestril 5 Mg) 2.5 mg PO [facility] Stop: 05/20/18 21:59 Last Admin: 04/20/18 22:12 Dose: 2.5 mg Venlafaxine HCl (Effexor Er 37.5 Mg) 37.5 mg PO [facility] Stop: 05/20/18 21:59 Last Admin: 04/20/18 22:11 Dose: 37.5 mg Intake & Output 04/21/18 04/22/18 11:59 11:59 Intake Total 1588 240 Output Total 1150 200 Balance 438 40 Weight 94 kg Orders 04/20/18 17:03 Pulse Oximetry .spot check 04/20/18 17:53 Clonazepam 0.5 mg [Klonopin 0.5 MG] 0.5 mg PO DAILY PRN PRN 04/20/18 22:00 Lisinopril 5 mg [Zestril 5 MG] 2.5 mg PO HS Venlafaxine HCl ER 37.5 mg [Effexor ER 37.5 MG] 37.5 mg PO HS 04/20/18 Dinner Soft Diet Lab Tests 04/20/18 04/20/18 04/20/18 13:59 13:59 18:27 WBC 10.7 H RBC 5.24 Hgb 14.4 Hct 44.1 MCV 84.2 MCH 27.5 MCHC 32.7 RDW 13.1 Plt Count 317 MPV 10.9 H Gran % 62.2 Eos # (Auto) 0.43 Absolute Lymphs (auto) 2.67 Absolute Monos (auto) 0.86 Lymphocytes % 25.1 Monocytes % 8.1 Eosinophils % 4.0 Basophils % 0.6 Absolute Granulocytes 6.63 Basophils # 0.06 Sodium 141 Potassium 4.5 Chloride 99 Carbon Dioxide 29 Anion Gap 17.5 H BUN 9 Creatinine 0.71 Estimated GFR > 60.0 Glucose 111 H Calcium 10.2 Total Bilirubin 0.50 AST 25 ALT 23 Alkaline Phosphatase 99 Serum Total Protein 7.8 Albumin 4.6 Urine HCG, Qual NEGATIVE - Vitals & Intake/Output Vital Signs: Vital Signs Temperature 98.7 F 04/21/18 10:52 Pulse Rate 70 04/21/18 10:52 Respiratory Rate 20 04/21/18 10:52 Blood Pressure 101/57 04/21/18 10:52 O2 Sat by Pulse Oximetry 96 04/21/18 10:52 Intake & Output: Intake & Output 04/19/18 04/20/18 04/21/18 04/22/18 11:59 11:59 11:59 11:59 Intake Total 1588 240 Output Total 1150 200 Balance 438 40 Weight 94 kg - Lab Result Diagrams: 04/20/18 13:59 04/20/18 13:59 Lab Results-Last 24 Hrs: Accuchecks Accucheck Value: 101 Lab Results-Last 24 Hours 04/20/18 04/20/18 04/20/18 Range/Units 13:59 13:59 18:27 WBC 10.7 H (4.0-10.5) K/mm3 RBC 5.24 (4.1-5.4) M/mm3 Hgb 14.4 (12.0-16.0) gm/dl Hct 44.1 (35-47) % MCV 84.2 (78-100) fl MCH 27.5 (26-32) pg MCHC 32.7 (32-36) g/dl RDW 13.1 (11.5-14.0) % Plt Count 317 (150-450) K/mm3 MPV 10.9 H (6-9.5) fl Gran % 62.2 (36.0-66.0) % Eos # (Auto) 0.43 (0-0.5) Absolute Lymphs (auto) 2.67 (1.0-4.6) Absolute Monos (auto) 0.86 (0.0-1.3) Lymphocytes % 25.1 (24.0-44.0) % Monocytes % 8.1 (0.0-12.0) % Eosinophils % 4.0 (0.00-5.0) % Basophils % 0.6 (0.0-0.4) % Absolute Granulocytes 6.63 (1.4-6.9) Basophils # 0.06 (0-0.4) Sodium 141 (137-145) mmol/L Potassium 4.5 (3.5-5.1) mmol/L Chloride 99 (98-107) mmol/L Carbon Dioxide 29 (22-30) mmol/L Anion Gap 17.5 H (5-15) MEQ/L BUN 9 (7-17) mg/dL Creatinine 0.71 (0.52-1.04) mg/dL Estimated GFR > 60.0 ML/MIN Glucose 111 H (74-106) mg/dL Calcium 10.2 (8.4-10.2) mg/dL Total Bilirubin 0.50 (0.2-1.3) mg/dL AST 25 (14-36) U/L ALT 23 (0-35) U/L Alkaline Phosphatase 99 (38-126) U/L Serum Total Protein 7.8 (6.3-8.2) g/dL Albumin 4.6 (3.5-5.0) g/dL Urine HCG, Qual NEGATIVE (Negative) Micro Results-Entire Visit: Accuchecks Accucheck Value: 101 - Radiology Exams Ordered Rad Exams-Entire Visit: Radiology Procedures Category Date Time Status CHEST 1 VIEW (PORTABLE) Stat Exams 04/20/18 13:39 Completed - Procedures and Test Procedures and Tests throughout Hospitalization: Therapy Orders & Screens 04/20/18 13:41 Respiratory Nebulizer STAT Comment: Diagnosis: Shortness of Breath 04/20/18 13:52 Respiratory Therapy Assessment DAILY Comment: Diagnosis: Shortness of Breath 04/20/18 15:48 Oxygen NASAL CANNULA 2 lpm Comment: Diagnosis: Shortness of Breath - Discharge Discharge Date: 04/21/18 Disposition: Home, Self-Care Condition: Stable Prescriptions: New Ciprofloxacin/Ciprofloxa HCl [Cipro Xr 500 mg Tablet] 500 mg PO BID #14 tbmp.24hr Metronidazole 500 mg [Flagyl 500 MG] 500 mg PO TID #15 tablet Continue Venlafaxine HCl [Effexor] 37.5 mg PO HS Clonazepam [Klonopin] 0.5 mg PO DAILY PRN PRN PRN Reason: Anxiety Lisinopril [Zestril] 2.5 mg PO DAILY Follow up with: ABISAI PAVON MD [Primary Care Provider] - 04/28/18 10:45 am (at [facility])
== END 2018-04-21 14:18 | disposition home or self-care (01) ==
LOC: ED 13:30 → MED SURG 16:15
PROVIDERS: ADMIT General Practice; ATTEND General Practice
DX: T78.40XA Allergy, unspecified, initial encounter (principal); R22.1 Localized swelling, mass and lump, neck; R20.2 Paresthesia of skin; F41.9 Anxiety disorder, unspecified; F32.9 Major depressive disorder, single episode, unspecified
CPT/HCPCS: 36415; 71045; 80053; 82962; 84703; 85025; 93005; 93041; 93268; 94640; 94760; 96360; 96374; 96375; 99285; J7609; J1200; J1720; J2405; A9270-GY; G0378

== ENCOUNTER 2019-01-18 21:27 | Emergency (ER) | payer BC ==
[2019-01-18] MEDS ORDERED: Zofran 4 MG/2 ML VIAL IV ONE (21:58)
[2019-01-18] MEDS ORDERED: Sodium Chloride 0.9% 1000 ML 1,000 ML IV STA (21:58)
[2019-01-18] MEDS ORDERED: MORPHINE SULFATE 4 MG INJ IV ONE (21:58)
--- NOTE | 2019-01-18 22:05 | ERPHSYRPT ---
- History of Present Illness Time Seen by Provider: 01/18/19 21:55 Historian: patient Exam Limitations: no limitations Patient Subjective Stated Complaint: pt is alert and oriented. pt is ambulatory with a steady gait. pt comes in with c/o RUQ pain. pt states that this pain began on Wednesday and has gotten progressively worse. pt states that she does not have a gallbladder. pt states that she has had sections of her colon removed because of diverticulitis. pt normoactive bowel sounds x4. pt states she has had watery diarrhea since wednesday. pt states that she did have a small amount of substance to her stool on wednesday but that it was still runny. Triage Nursing Assessment: see above Physician History: 43-year-old white female with history of diverticulosis, diverticulitis, anxiety , mononucleosis Who has had partial colon resection secondary to diverticulitis back in April of last year. Patient arrives with complaints of sharp and crampy abdominal pain which begins in her right side of her abdomen and radiates across her abdomen symptoms going on for 3 days she states she's had some loose stools no melena no hematochezia no urinary symptoms. Past medical history includes diverticulosis, diverticulitis, anxiety, mononucleosis. Past surgical history includes cholecystectomy and hysterectomy, partial colon resection secondary to diverticulitis. . Timing/Duration: day(s) (3 days) Activities at Onset: none Quality: cramping, sharpness Abdominal Pain Onset Location: RUQ, other (right upper quadrant radiating across the abdomen ) Pain Radiation: no radiation Severity of Pain-Max: moderate Severity of Pain-Current: moderate Modifying Factors: Worsens With: analgesics, antacids, breathing, coughing, defecating, eating, exercise, lying down, movement, palpation, rest, urinating, vomiting, position, walking Associated Symptoms: diarrhea, No back, No chest pain, No diaphoresis, No fever/ chills, No fatigue, No headache, No heartburn, No loss of appetite, No nausea, No neck pain, No rash, No shortness of breath, No syncope, No vomiting, No weakness Previous symptoms: no prior history Allergies/Adverse Reactions: amoxicillin Allergy (Verified 04/20/18 17:13) Penicillins Allergy (Verified 04/20/18 17:14) Sulfa (Sulfonamide Antibiotics) [Sulfa(Sulfonamide Antibiotics)] Allergy ( Verified 04/20/18 17:14) Home Medications: Clonazepam [Klonopin] 0.5 mg PO DAILY PRN PRN 12/17/14 [History] Venlafaxine HCl [Effexor] 37.5 mg PO HS 12/17/14 [History] Estradiol 1 mg PO DAILY 01/18/19 [History] Metformin HCl Xr 500 mg [Glucophage XR 500 MG] 500 mg PO DAILY 01/18/19 [ History] Hx Tetanus, Diphtheria Vaccination/Date Given: Yes Hx Influenza Vaccination/Date Given: Yes Hx Pneumococcal Vaccination/Date Given: No Immunizations Up to Date: Yes - Review of Systems Constitutional: No Fever, No Chills Eyes: No Symptoms Ears, Nose, & Throat: No Symptoms Respiratory: No Cough, No Dyspnea Cardiac: No Chest Pain, No Edema, No Syncope Abdominal/Gastrointestinal: Abdominal Pain, Diarrhea, No Nausea, No Vomiting, No Constipation, No Hematemesis, No Hematochezia, No Melena, No Dysphagia, No Appetite Changes Genitourinary Symptoms: No Dysuria Musculoskeletal: No Back Pain, No Neck Pain Skin: No Rash Neurological: No Dizziness, No Focal Weakness, No Sensory Changes Psychological: No Symptoms Endocrine: No Symptoms All Other Systems: Reviewed and Negative - Past Medical History Pertinent Past Medical History: Yes Neurological History: No Pertinent History ENT History: No Pertinent History Cardiac History: No Pertinent History Respiratory History: No Pertinent History Endocrine Medical History: Diabetes Type II Musculoskeletal History: No Pertinent History, Other GI Medical History: Diverticulitis, Diverticulosis, Gallbladder Disease History: No Pertinent History Psycho-Social History: Anxiety, Depression Female Reproductive Disorders: Endometriosis, Other Other Medical History: mononucleosis - Past Surgical History Past Surgical History: Yes Neuro Surgical History: No Pertinent History Cardiac: No Pertinent History Respiratory: No Pertinent History Gastrointestinal: Bowel Surgery, Cholecystectomy Genitourinary: No Pertinent History Musculoskeletal: No Pertinent History Female Surgical History: Hysterectomy Other Surgical History: bowel resection on 04/06/18. - Social History Smoking Status: Former smoker Exposure to second hand smoke: No Drug Use: none Patient Lives Alone: No - Female History Hx Now: No (hysterectomy) - Nursing Vital Signs Nursing Vital Signs: Initial Vital Signs Temperature 98.2 F 01/18/19 21:39 Pulse Rate 82 01/18/19 21:39 Respiratory Rate 18 01/18/19 21:39 Blood Pressure 145/81 01/18/19 21:39 O2 Sat by Pulse Oximetry 97 01/18/19 21:39 Pain Scale Pain Intensity 8 - Physical Exam General Appearance: mild distress, alert Eye Exam: PERRL/EOMI, eyes nml inspection Ears, Nose, Throat Exam: normal ENT inspection, pharynx normal, moist mucous membranes Neck Exam: normal inspection, non-tender, supple, full range of motion Respiratory Exam: normal breath sounds, lungs clear, No respiratory distress Cardiovascular Exam: regular rate/rhythm, normal heart sounds, capillary refill <2 sec Gastrointestinal/Abdomen Exam: soft, normal bowel sounds, tenderness (Right upper quadrant and right middle quadrant tenderness), No mass Back Exam: normal inspection, normal range of motion, No CVA tenderness, No vertebral tenderness Extremity Exam: normal inspection, normal range of motion, pelvis stable Neurologic Exam: alert, oriented x 3, cooperative, wardrobe image consultant II-XII nml as tested, normal mood/affect, nml cerebellar function, sensation nml, No motor deficits Skin Exam: normal color, warm, dry SpO2 Interpretation: normal (97%) SpO2: 97 - Course Nursing assessment & vital signs reviewed: Yes - CT Exams Abdomen/Pelvis CT Interpretation: Tele-radiologist Report (CT abdomen and pelvis with contrast colon impression: No evidence of acute intra-abdominal or pelvic pathology) Ordered Tests: Active Orders 24 hr Category Date Time Status IV Insertion STAT Care 01/18/19 21:58 Active ABDOMEN AND PELVIS W CONTRAST [CT] Stat Exams 01/18/19 22:47 Taken AMYLASE Stat Lab 01/18/19 22:05 Completed CBC W DIFF Stat Lab 01/18/19 22:05 Completed CMP Stat Lab 01/18/19 22:05 Completed LIPASE Stat Lab 01/18/19 22:05 Completed UA W/RFX UR CULTURE Stat Lab 01/18/19 22:36 Completed Medication Summary Discontinued Medications Generic Name Dose Route Start Last Admin Trade Name Freq PRN Reason Stop Dose Admin Sodium Chloride 1,000 mls @ 999 mls/hr 01/18/19 21:58 01/18/19 22:24 Sodium Chloride 0.9% 1000 Ml IV 01/18/19 22:58 999 mls/hr .Q1H1M STA Administration Sodium Chloride Confirm 01/18/19 22:19 Sodium Chloride 0.9% 1000 Ml Administered 01/18/19 22:20 Dose 1,000 mls @ ud .ROUTE .STK-MED ONE Morphine Sulfate 4 mg 01/18/19 21:58 01/18/19 22:25 Morphine Sulfate 4 Mg Inj IV 01/18/19 21:59 4 mg STAT ONE Administration Morphine Sulfate Confirm 01/18/19 22:19 Morphine Sulfate 4 Mg Inj Administered 01/18/19 22:20 Dose 4 mg .ROUTE .STK-MED ONE Ondansetron HCl 4 mg 01/18/19 21:58 01/18/19 22:25 Zofran 4 Mg/2 Ml Vial IV 01/18/19 21:59 4 mg STAT ONE Administration Ondansetron HCl Confirm 01/18/19 22:19 Zofran 4 Mg/2 Ml Vial Administered 01/18/19 22:20 Dose 4 mg .ROUTE .STK-MED ONE Lab/Rad Data: Laboratory Result Diagrams 01/18/19 22:05 01/18/19 22:05 Laboratory Results 01/18/19 01/18/19 01/18/19 Range/Units 22:36 22:05 22:05 WBC 12.2 H (4.0-10.5) K/mm3 RBC 5.22 (4.1-5.4) M/mm3 Hgb 14.9 (12.0-16.0) gm/dl Hct 44.4 (35-47) % MCV 85.1 (78-100) fl MCH 28.5 (26-32) pg MCHC 33.6 (32-36) g/dl RDW 12.9 (11.5-14.0) % Plt Count 230 (150-450) K/mm3 MPV 10.5 H (6-9.5) fl Gran % 66.8 H (36.0-66.0) % Eos # (Auto) 0.26 (0-0.5) Absolute Lymphs (auto) 2.75 (1.0-4.6) Absolute Monos (auto) 1.02 (0.0-1.3) Lymphocytes % 22.5 L (24.0-44.0) % Monocytes % 8.4 (0.0-12.0) % Eosinophils % 2.1 (0.00-5.0) % Basophils % 0.2 (0.0-0.4) % Absolute Granulocytes 8.14 H (1.4-6.9) Basophils # 0.03 (0-0.4) Sodium 139 (137-145) mmol/L Potassium 3.9 (3.5-5.1) mmol/L Chloride 103 (98-107) mmol/L Carbon Dioxide 30 (22-30) mmol/L Anion Gap 10.5 (5-15) MEQ/L BUN 15 (7-17) mg/dL Creatinine 1.05 H (0.52-1.04) mg/dL Estimated GFR > 60.0 ML/MIN Glucose 144 H (74-106) mg/dL Calcium 10.1 (8.4-10.2) mg/dL Total Bilirubin 0.50 (0.2-1.3) mg/dL AST 28 (14-36) U/L ALT 38 H (0-35) U/L Alkaline Phosphatase 97 (38-126) U/L Serum Total Protein 7.8 (6.3-8.2) g/dL Albumin 4.5 (3.5-5.0) g/dL Amylase 77 (30-110) U/L Lipase 95 (23-300) U/L Urine Color STRAW (YELLOW) Urine Appearance CLEAR (CLEAR) Urine pH 5.0 (5-6) Ur Specific [place] 1.013 (1.005-1.025) Urine Protein NEGATIVE (Negative) Urine Ketones NEGATIVE (NEGATIVE) Urine Blood NEGATIVE (0-5) Cornelius/ul Urine Nitrite NEGATIVE (NEGATIVE) Urine Bilirubin NEGATIVE (NEGATIVE) Urine Urobilinogen NEGATIVE (0-1) mg/dL Ur Leukocyte Esterase NEGATIVE (NEGATIVE) Urine WBC (Auto) NONE (0-5) /HPF Urine RBC (Auto) NONE (0-2) /HPF U Epithel Cells (Auto) RARE (FEW) /HPF Urine Bacteria (Auto) NONE (NEGATIVE) /HPF Urine Mucus (Auto) SLIGHT (NEGATIVE) /HPF Urine Culture Reflexed NO (NO) Urine Glucose 50 (NEGATIVE) mg/dL - Progress Progress: unchanged Progress Note: 01/19/19 00:43 Patient improved but not completely pain-free after a liter of normal saline morphine and Zofran CT of the abdomen and pelvis read by virtual radiology no evidence of acute intra-abdominal or pelvic pathology. Labs essentially normal with the exception of a white count of 12.2. Will give patient 4 mg more morphine plan home clear fluids small amount of Tavernier. Patient followup with her family . - Departure Departure Disposition: Home Clinical Impression: Abdominal pain Qualifiers: Abdominal location: upper abdomen, unspecified Qualified Code(s): R10.10 - Upper abdominal pain, unspecified Diarrhea Qualifiers: Diarrhea type: unspecified type Qualified Code(s): R19.7 - Diarrhea, unspecified Condition: Fair Critical Care Time: No Referrals: ALTHEA YEAGER [Primary Care Provider] - Additional Instructions: Return home. Plenty of fluids clear fluids only 24-48 hours if abdominal pain or vomiting or diarrhea. Tavernier as prescribed. Followup with your family if symptoms no better in 24 hours or become worse or persist longer than 48 hours. Return for acute distress or for severe symptoms or for any reason. Prescriptions: Hydrocodone/APAP 5-325 Tab^^^ [Tavernier 5-325 Tablet^^^] 1 tab PO Q6HPRN PRN #10 tablet MDD 6 PRN Reason: abdominal pain
[2019-01-18 22:12] LABS: BASOPHIL % 0.2 % (0.0-0.4); Basophil (Absolute #) 0.03 (0-0.4); Eosinophil % 2.1 % (0.00-5.0); Eosinophil (Absolute #) 0.26 (0-0.5); Granulocyte Absolute (ANC) 8.14 (1.4-6.9); Granulocytes % 66.8 % (36.0-66.0); Hematocrit 44.4 % (35-47); Hemoglobin 14.9 gm/dl (12.0-16.0); Lymphocyte (Absolute #) 2.75 (1.0-4.6); Lymphocytes % 22.5 % (24.0-44.0); Mean Cell Volume 85.1 fl (78-100); Mean Corpuscular Hemoglobin 28.5 pg (26-32); Mean Corpuscular Hgb Concent. 33.6 g/dl (32-36); Mean Platelet Volume 10.5 fl (6-9.5); Monocyte (Absolute #) 1.02 (0.0-1.3); Monocytes % 8.4 % (0.0-12.0); Platelet Count 230 K/mm3 (150-450); Red Blood Count 5.22 M/mm3 (4.1-5.4); Red Cell Distribution Width 12.9 % (11.5-14.0); White Blood Count 12.2 K/mm3 (4.0-10.5)
[2019-01-18] MEDS ORDERED: Zofran 4 MG/2 ML VIAL ONE (22:19)
[2019-01-18] MEDS ORDERED: Sodium Chloride 0.9% 1000 ML 1,000 ML ONE (22:19)
[2019-01-18] MEDS ORDERED: MORPHINE SULFATE 4 MG INJ ONE (22:19)
[2019-01-18 22:23] LABS: ALBUMIN 4.5 g/dL (3.5-5.0); ALKALINE PHOSPHATASE 97 U/L (38-126); AMYLASE 77 U/L (30-110); ANION GAP 10.5 MEQ/L (5-15); BLOOD UREA NITROGEN 15 mg/dL (7-17); CHLORIDE 103 mmol/L (98-107); Calcium 10.1 mg/dL (8.4-10.2); Carbon Dioxide 30 mmol/L (22-30); Creatinine 1 1.05 mg/dL (0.52-1.04); Glucose 144 mg/dL (74-106); LIPASE 95 U/L (23-300); Potassium 3.9 mmol/L (3.5-5.1); SGOT/AST 28 U/L (14-36); SGPT/ALT 38 U/L (0-35); SODIUM 139 mmol/L (137-145); Total Protein 7.8 g/dL (6.3-8.2)
[2019-01-18 22:47] LABS: Appearance CLEAR (CLEAR); Bilirubin NEGATIVE (NEGATIVE); Blood NEGATIVE Ery/ul (0-5); Epithelial Cells RARE /HPF (FEW); Glucose 50 mg/dL (NEGATIVE); Ketones NEGATIVE (NEGATIVE); Leukocyte Esterase NEGATIVE (NEGATIVE); Mucus SLIGHT /HPF (NEGATIVE); Nitrite NEGATIVE (NEGATIVE); Protein,Urine Dip NEGATIVE (Negative); Specific Gravity 1.013 (1.005-1.025); Urobilinogen NEGATIVE mg/dL (0-1)
[2019-01-19] MEDS ORDERED: MORPHINE SULFATE 4 MG INJ IV ONE (00:45)
[2019-01-19] MEDS ORDERED: MORPHINE SULFATE 4 MG INJ ONE (01:04)
[2019-01-19 01:11] VITALS: BP 116/65; PULSE 72; O2SAT 98
--- NOTE | 2019-01-19 09:06 | XRAY ---
Indication: Abdomen pain. Nausea and diarrhea. Multiple contiguous axial images obtained through the abdomen and pelvis using 80 cc Isovue 370 contrast only. Comparison: April 19, 2018. Lung bases demonstrates right lower lobe calcified granuloma not previously imaged. No infiltrate or effusion. Heart is not enlarged. Stomach is distended with food/fluid. Noncontrasted stomach and bowel loops appear nonobstructed. Normal appendix. Intact sigmoid anastomosis. No free fluid/air. Stable diffuse fatty liver, hysterectomy, and cholecystectomy. Spleen is now borderline enlarged measuring 12.3 cm in greatest axial dimension. Remaining liver, pancreas, spleen, adrenal glands, kidneys, ureters, bladder, and aorta appear unremarkable. No pathologic retroperitoneal lymphadenopathy. Osseous structures intact again with mild degenerative changes throughout the spine. Impression: 1. New borderline splenomegaly and stable fatty liver. 2. Remaining CT abdomen/pelvis with contrast exam is negative. Comment: Preliminary interpretation was made by [facility]. No critical discrepancy. CT DI 22.57
== END 2019-01-19 01:25 | disposition home or self-care (01) ==
LOC: ED 21:27
DX: R10.10 Upper abdominal pain, unspecified (principal); R19.7 Diarrhea, unspecified
CPT/HCPCS: 36000; 36415; 74177; 80053; 81001; 82150; 83690; 85025; 96360; 96374; 96375; 96376; 99284; J2270; J2405

== ENCOUNTER 2019-09-11 10:45 | Emergency (ER) | payer BC, MEDICAID ==
[2019-09-11 10:59] VITALS: BP 118/80; PULSE 89; O2SAT 98
--- NOTE | 2019-09-11 11:28 | ERPHSYRPT ---
- History of Present Illness Time Seen by Provider: 09/11/19 11:23 Source: patient Exam Limitations: no limitations Patient Subjective Stated Complaint: pt was trying to separate frozen hamburger patties with a sharp knife and cut her left hand thumb Triage Nursing Assessment: Pt brought to the ER by her mother, 1.5 cm laceration to the top part of the left thumb, holding pressure but starts bleeding when not applying, vitals wnl, rates pain 8/10, no other issues at this time Physician History: Patient suffered a laceration to the left thumb the pad approximately 1.5 cm superficial in appearance but continues to bleed rather briskly Occurred: just prior to arrival Method of Injury: incised Severity of Pain-Max: mild Severity of Pain-Current: mild Extremities Pain Location: thumb: left Modifying Factors: Improves With: nothing Associated Symptoms: none Allergies/Adverse Reactions: amoxicillin Allergy (Verified 09/11/19 10:59) Penicillins Allergy (Verified 09/11/19 10:59) Sulfa (Sulfonamide Antibiotics) [Sulfa(Sulfonamide Antibiotics)] Allergy ( Verified 09/11/19 10:59) Home Medications: Clonazepam [Klonopin] 0.5 mg PO DAILY PRN PRN 12/17/14 [History] Venlafaxine HCl [Effexor] 37.5 mg PO BID 12/17/14 [History] Metformin HCl Xr 500 mg [Glucophage XR 500 MG] 500 mg PO BID 01/18/19 [ History] estradioL [Estradiol] 1 mg PO DAILY 01/18/19 [History] Hx Tetanus, Diphtheria Vaccination/Date Given: Yes (2016) Hx Influenza Vaccination/Date Given: Yes Hx Pneumococcal Vaccination/Date Given: No Travel Risk - International Travel Have you traveled outside of the country in past 3 weeks: No Have you or anyone close to you been diagnosed with or: No Do your reside in a community with a known COVID-19 case?: No - Coronavirus Screening Has patient experienced Coronavirus symptoms: No - Review of Systems Constitutional: No Fever, No Chills Eyes: No Symptoms Ears, Nose, & Throat: No Symptoms Respiratory: No Cough, No Dyspnea Cardiac: No Chest Pain, No Edema, No Syncope Abdominal/Gastrointestinal: No Abdominal Pain, No Nausea, No Vomiting, No Diarrhea Genitourinary Symptoms: No Dysuria Musculoskeletal: Other (5 cm linear laceration on the pad of the left thumb vascular tendon are intact), No Back Pain, No Neck Pain Skin: No Rash Neurological: No Dizziness, No Focal Weakness, No Sensory Changes Psychological: No Symptoms Endocrine: No Symptoms All Other Systems: Reviewed and Negative - Past Medical History Pertinent Past Medical History: Yes Neurological History: No Pertinent History ENT History: No Pertinent History Cardiac History: No Pertinent History Respiratory History: No Pertinent History Endocrine Medical History: Diabetes Type II Musculoskeletal History: No Pertinent History, Other GI Medical History: Diverticulitis, Diverticulosis, Gallbladder Disease History: No Pertinent History Psycho-Social History: Anxiety, Depression Female Reproductive Disorders: Endometriosis, Other Other Medical History: mononucleosis - Past Surgical History Past Surgical History: Yes Neuro Surgical History: No Pertinent History Cardiac: No Pertinent History Respiratory: No Pertinent History Gastrointestinal: Bowel Surgery, Cholecystectomy Genitourinary: No Pertinent History Musculoskeletal: No Pertinent History Female Surgical History: Hysterectomy Other Surgical History: bowel resection on 04/06/18. - Social History Smoking Status: Former smoker Exposure to second hand smoke: No Drug Use: none Patient Lives Alone: No - Female History Hx Now: No - Nursing Vital Signs Nursing Vital Signs: Initial Vital Signs Temperature 97.9 F 09/11/19 10:51 Pulse Rate 89 09/11/19 10:51 Blood Pressure 118/80 09/11/19 10:51 O2 Sat by Pulse Oximetry 98 09/11/19 10:51 Pain Scale Pain Intensity 8 - Physical Exam General Appearance: mild distress, alert Eyes, Ears, Nose, Throat Exam: moist mucous membranes Neck Exam: non-tender, supple Cardiovascular/Respiratory Exam: chest non-tender, normal breath sounds, regular rate/rhythm, no respiratory distress Abdominal Exam: non-tender, No guarding Back Exam: normal inspection, No vertebral tenderness Shoulder Exam: normal inspection Elbow/Forearm Exam: normal inspection Wrist Exam: normal inspection Hand Exam: laceration (0.5 cm laceration linear superficial pad of the left thumb) Neuro/Tendon Exam: normal sensation, normal motor functions Mental Status Exam: alert, oriented x 3, cooperative Skin Exam: normal color, warm, dry, laceration (Above) SpO2 Interpretation: normal SpO2: 98 O2 Delivery: Room Air Procedures - Laceration/Wound Repair Left Finger Wound Location: Left, hand (1.5 cm superficial laceration left thumb distal pad) Wound Length (cm): 1.5 Wound's Depth, Shape: superficial, linear Wound Explored: clean Irrigated: Yes Hibiclens Prep: Yes Anesthesia: 1% Lidocaine Volume Anesthetic (ccs): 2 Wound Debrided: minimal Wound Repaired With: sutures Suture Size/Type: 5-0 Number of Sutures: 2 Layer Closure?: No Sterile Dressing Applied?: Yes Splint Applied?: No - Course Nursing assessment & vital signs reviewed: Yes - Progress Progress: improved - Departure Departure Disposition: Home Clinical Impression: Laceration of left thumb Condition: Stable Critical Care Time: No Instructions: Laceration Repair With Stitches (DC)
== END 2019-09-11 11:45 | disposition home or self-care (01) ==
LOC: ED 10:45
DX: W26.0XXA Contact with knife, initial encounter (principal); Y93.G1 Activity, food preparation and clean up
CPT/HCPCS: 12001; 99283

== ENCOUNTER 2021-01-13 14:29 | Emergency (ER) | payer SELFPAY ==
[2021-01-13] MEDS ORDERED: SUBLIMAZE 100 MCG/2 ML IV ONE (15:27)
[2021-01-13] MEDS ORDERED: Zofran 4 MG/2 ML VIAL IV ONE (15:28)
[2021-01-13] MEDS ORDERED: Zofran 4 MG/2 ML VIAL ONE (15:29)
[2021-01-13] MEDS ORDERED: SUBLIMAZE 100 MCG/2 ML ONE (15:29)
[2021-01-13 15:32] LABS: Absolute Neutrophil Ct (ANC) 5.12 (1.4-6.9); BASOPHIL % 0.5 % (0.0-0.4); Basophil (Absolute #) 0.04 (0-0.4); Eosinophil % 2.6 % (0.00-5.0); Eosinophil (Absolute #) 0.23 (0-0.5); Hemoglobin 14.4 gm/dl (12.0-16.0); Lymphocyte (Absolute #) 2.68 (1.0-4.6); Lymphocytes % 30.5 % (24.0-44.0); Mean Corpuscular Hemoglobin 27.5 pg (26-32); Mean Platelet Volume 10.7 fl (7.5-11.0); Monocyte (Absolute #) 0.71 (0.0-1.3); Monocytes % 8.1 % (0.0-12.0); Neutrophil % 58.3 % (36.0-66.0); Platelet Count 281 K/mm3 (150-450); Red Blood Count 5.23 M/mm3 (4.1-5.4); Red Cell Distribution Width 13.1 % (11.5-14.0); White Blood Count 8.8 K/mm3 (4.0-10.5)
--- NOTE | 2021-01-13 15:33 | ERPHSYRPT ---
- History of Present Illness Historian: patient Patient Subjective Stated Complaint: Pt states "I fell off my boat ladder and hit the ladder all the way down on 12/25/2020 and I had x rays of my ribs and there were no broken ribs, only broken toe. A week ago I sat up and I had sudden severe pain in my upper right belly about where they had internal suteres of my colon resection. I am not sure what I did but there is severe pain in there." Triage Nursing Assessment: Pt presented alert and oriented X 3, skin pwd pt ambulates holding her upper abdomen. Pt in no apaprent respiratory distress. Pt able to speak in clear full sentences pt winces every time she moves and will guard her abdomen Physician History: 45 yo wf complains of RUQ pain since she fell on her boat hitting her abdomen on a ladder. Pt states that the pain is a 10. She was seen at an urgent care after the accident. Pt denies N/V/D/melena/hematochezia. She has had a alyssa and a CATHLEEN. Timing/Duration: other (12/25/20) Quality: sharpness, stabbing Abdominal Pain Onset Location: RUQ Pain Radiation: no radiation Severity of Pain-Max: severe Severity of Pain-Current: severe Modifying Factors: Improves With: movement (Pain worse w movement) Associated Symptoms: No back, No chest pain, No diaphoresis, No diarrhea, No fever/chills, No fatigue, No headache, No heartburn, No loss of appetite, No frances sea, No neck pain, No rash, No shortness of breath, No syncope, No vomiting, No weakness Previous symptoms: no prior history Allergies/Adverse Reactions: amoxicillin Allergy (Verified 09/11/19 10:59) Penicillins Allergy (Verified 09/11/19 10:59) Sulfa (Sulfonamide Antibiotics) [Sulfa(Sulfonamide Antibiotics)] Allergy (Verified 09/11/19 10:59) Home Medications: Clonazepam [Klonopin] 0.5 mg PO DAILY PRN PRN 12/17/14 [History] Venlafaxine HCl [Effexor] 37.5 mg PO BID 12/17/14 [History] Metformin HCl Xr 500 mg [Glucophage XR 500 MG] 500 mg PO BID 01/18/19 [History] estradioL [Estradiol] 1 mg PO DAILY 01/18/19 [History] lisinopriL [Lisinopril] 2.5 mg PO BID 01/13/21 [History] Hx Tetanus, Diphtheria Vaccination/Date Given: No Hx Influenza Vaccination/Date Given: No Hx Pneumococcal Vaccination/Date Given: No Immunizations Up to Date: Yes Travel Risk - International Travel Have you traveled outside of the country in past 3 weeks: No - Coronavirus Screening Are you exhibiting any of the following symptoms?: No Close contact with a COVID-19 positive Pt in past 14-21 Days: No - Vaccine Status Have you recieved a Covid-19 vaccination: No - Review of Systems Constitutional: No Symptoms Eyes: No Symptoms Ears, Nose, & Throat: No Symptoms, Throat Swelling Cardiac: No Symptoms Abdominal/Gastrointestinal: No Symptoms, Abdominal Pain Genitourinary Symptoms: No Symptoms Musculoskeletal: No Symptoms Skin: No Symptoms Neurological: No Symptoms Psychological: No Symptoms Endocrine: No Symptoms Hematologic/Lymphatic: No Symptoms, Easy Bruising Immunological/Allergic: No Symptoms - Past Medical History Pertinent Past Medical History: Yes Neurological History: No Pertinent History ENT History: No Pertinent History Cardiac History: No Pertinent History Respiratory History: No Pertinent History Endocrine Medical History: Diabetes Type II Musculoskeletal History: No Pertinent History, Other GI Medical History: Diverticulitis, Diverticulosis, Gallbladder Disease History: No Pertinent History Psycho-Social History: Anxiety, Depression Female Reproductive Disorders: Endometriosis, Other Other Medical History: mononucleosis - Past Surgical History Past Surgical History: Yes Neuro Surgical History: No Pertinent History Cardiac: No Pertinent History Respiratory: No Pertinent History Gastrointestinal: Bowel Surgery, Cholecystectomy Genitourinary: No Pertinent History Musculoskeletal: No Pertinent History Female Surgical History: Hysterectomy Other Surgical History: bowel resection on 04/06/18. - Social History Smoking Status: Former smoker Exposure to second hand smoke: Yes Drug Use: none Patient Lives Alone: No Significant Family History: no pertinent family hx - Female History Hx Last Menstrual Period: hysterectomy Hx Now: No - Nursing Vital Signs Nursing Vital Signs: Initial Vital Signs Temperature 97.5 F 01/13/21 14:49 Pulse Rate 104 H 01/13/21 14:49 Respiratory Rate 20 01/13/21 14:49 Blood Pressure 201/97 01/13/21 14:49 O2 Sat by Pulse Oximetry 98 01/13/21 14:49 Pain Scale Pain Intensity 5 - Physical Exam General Appearance: no apparent distress Eye Exam: PERRL/EOMI, eyes nml inspection Ears, Nose, Throat Exam: normal ENT inspection, TMs normal, pharynx normal, moist mucous membranes Neck Exam: normal inspection, non-tender, supple, full range of motion Respiratory Exam: normal breath sounds, lungs clear, airway intact, No respiratory distress Cardiovascular Exam: regular rate/rhythm, normal heart sounds, normal peripheral pulses, No murmur Gastrointestinal/Abdomen Exam: soft, tenderness (Marked TTP RUQ w guarding) Extremity Exam: normal inspection, normal range of motion Neurologic Exam: alert, oriented x 3, cooperative, state tested nursing assistant II-XII nml as tested, normal mood/affect, nml cerebellar function, nml station & gait, sensation nml Skin Exam: normal color Lymphatic Exam: adenopathy SpO2 Interpretation: normal SpO2: 98 O2 Delivery: Room Air - Course Nursing assessment & vital signs reviewed: Yes - CT Exams Abdomen/Pelvis CT Interpretation: Discussed w/radiologist (SOTO/Fecal stasis) Ordered Tests: Active Orders 24 hr Category Date Time Status ABDOMEN AND PELVIS W CONTRAST [CT] Stat Exams 01/13/21 15:12 Completed AMYLASE Stat Lab 01/13/21 15:25 Completed CBC W DIFF Stat Lab 01/13/21 15:25 Completed CMP Stat Lab 01/13/21 15:25 Completed LIPASE Stat Lab 01/13/21 15:25 Completed Medication Summary Discontinued Medications Generic Name Dose Route Start Last Admin Trade Name Freq PRN Reason Stop Dose Admin Fentanyl Citrate 100 mcg 01/13/21 15:27 01/13/21 16:23 Sublimaze 100 Mcg/2 Ml IV 01/13/21 15:28 100 mcg STAT ONE Administration Fentanyl Citrate Confirm 01/13/21 15:29 Sublimaze 100 Mcg/2 Ml Administered 01/13/21 15:30 Dose 100 mcg .ROUTE .STK-MED ONE Ketorolac Tromethamine 30 mg 01/13/21 17:01 01/13/21 17:04 Toradol 30 Mg Injection IV 01/13/21 17:02 30 mg STAT ONE Administration Ketorolac Tromethamine Confirm 01/13/21 17:02 Toradol 30 Mg Injection Administered 01/13/21 17:03 Dose 30 mg .ROUTE .STK-MED ONE Ondansetron HCl 4 mg 01/13/21 15:28 01/13/21 16:22 Zofran 4 Mg/2 Ml Vial IV 01/13/21 15:29 4 mg STAT ONE Administration Ondansetron HCl Confirm 01/13/21 15:29 Zofran 4 Mg/2 Ml Vial Administered 01/13/21 15:30 Dose 4 mg .ROUTE .STK-MED ONE Lab/Rad Data: Laboratory Result Diagrams 01/13/21 15:25 01/13/21 15:25 Laboratory Results 01/13/21 01/13/21 Range/Units 15:25 15:25 WBC 8.8 (4.0-10.5) K/mm3 RBC 5.23 (4.1-5.4) M/mm3 Hgb 14.4 (12.0-16.0) gm/dl Hct 45.0 (35-47) % MCV 86.0 (78-100) fl MCH 27.5 (26-32) pg MCHC 32.0 (32-36) g/dl RDW 13.1 (11.5-14.0) % Plt Count 281 (150-450) K/mm3 MPV 10.7 (7.5-11.0) fl Gran % 58.3 (36.0-66.0) % Eos # (Auto) 0.23 (0-0.5) Absolute Lymphs (auto) 2.68 (1.0-4.6) Absolute Monos (auto) 0.71 (0.0-1.3) Lymphocytes % 30.5 (24.0-44.0) % Monocytes % 8.1 (0.0-12.0) % Eosinophils % 2.6 (0.00-5.0) % Basophils % 0.5 (0.0-0.4) % Absolute Granulocytes 5.12 (1.4-6.9) Basophils # 0.04 (0-0.4) Sodium 138 (137-145) mmol/L Potassium 4.0 (3.5-5.1) mmol/L Chloride 100 (98-107) mmol/L Carbon Dioxide 27 (22-30) mmol/L Anion Gap 14.9 (5-15) MEQ/L BUN 14 (7-17) mg/dL Creatinine 0.88 (0.52-1.04) mg/dL Estimated GFR > 60.0 ML/MIN Glucose 178 H (74-106) mg/dL Calcium 9.9 (8.4-10.2) mg/dL Total Bilirubin 0.30 (0.2-1.3) mg/dL AST 24 (14-36) U/L ALT 28 (0-35) U/L Alkaline Phosphatase 78 (38-126) U/L Serum Total Protein 7.6 (6.3-8.2) g/dL Albumin 4.5 (3.5-5.0) g/dL Amylase 63 (30-110) U/L Lipase 70 (23-300) U/L - Progress Progress: improved Progress Note: 01/13/21 17:01 Pain improved w 100umg IV Fentanyl/4mg IV Zofran 30mg IV Toradol before discharge Pt refuses pain Rx Counseled pt/family regarding: lab results, diagnosis, need for follow-up, rad results - Departure Departure Disposition: Home Clinical Impression: Abdominal wall contusion Condition: Stable Critical Care Time: No Referrals: DOCTOR,NO FAMILY [Primary Care Provider] - Instructions: Acute Abdomen (Belly Pain), Adult (DC) Additional Instructions: Follow up with your family MD in 1-2 days Return to ER for increasing pain or temperature greater than 100.5
[2021-01-13 15:41] LABS: ALBUMIN 4.5 g/dL (3.5-5.0); ALKALINE PHOSPHATASE 78 U/L (38-126); AMYLASE 63 U/L (30-110); ANION GAP 14.9 MEQ/L (5-15); BLOOD UREA NITROGEN 14 mg/dL (7-17); CHLORIDE 100 mmol/L (98-107); Calcium 9.9 mg/dL (8.4-10.2); Carbon Dioxide 27 mmol/L (22-30); Creatinine 1 0.88 mg/dL (0.52-1.04); EST GLOMERULAR FILTRATION RATE > 60.0 ML/MIN; Glucose 178 mg/dL (74-106); LIPASE 70 U/L (23-300); SGOT/AST 24 U/L (14-36); SGPT/ALT 28 U/L (0-35); SODIUM 138 mmol/L (137-145); Total Protein 7.6 g/dL (6.3-8.2)
--- NOTE | 2021-01-13 16:35 | XRAY ---
Indication: Abdomen pain 1 week. Nausea. Multiple contiguous axial images obtained through the abdomen and pelvis using 80 cc Isovue 370 contrast. Comparison: January 18, 2019. Lung bases demonstrate stable right lower lobe calcified granuloma. No infiltrate or effusion. Heart not enlarged with chunky subcarinal and right perihilar calcified nodes. Stomach is distended with food/fluid. Noncontrasted stomach and bowel loops nonobstructed. Normal appendix. There is now mild diffuse scattered colonic fecal debris throughout. Stable mild fatty liver. Again intact sigmoid anastomosis, hysterectomy, and cholecystectomy. No free fluid/air. Remaining liver, pancreas, spleen, adrenal glands, kidneys, ureters, bladder, and aorta are unremarkable. No pathologic retroperitoneal lymphadenopathy. Osseous structures intact taken with minimal degenerative changes throughout the spine. Impression: 1. Stable fatty liver and old granulomatous disease. 2. New mild fecal stasis. 3. Remaining CT abdomen/pelvis with contrast exam is again negative.
[2021-01-13] MEDS ORDERED: TORAdol 30 mg Injection IV ONE (17:01)
[2021-01-13] MEDS ORDERED: TORAdol 30 mg Injection ONE (17:02)
[2021-01-13 17:34] VITALS: BP 130/82; PULSE 67
[2021-01-13 21:48] VITALS: O2SAT 98
== END 2021-01-13 17:30 | disposition home or self-care (01) ==
LOC: ED 14:29
DX: S30.1XXA Contusion of abdominal wall, initial encounter (principal); W22.09XA Striking against other stationary object, initial encounter; Y93.89 Activity, other specified; Y92.89 Other specified places as the place of occurrence of the external cause; Y99.8 Other external cause status
CPT/HCPCS: 36000; 36415; 74177; 80053; 82150; 83690; 85025; 96374; 96375; 99284; J1885; J2405; J3010

== ENCOUNTER 2021-06-19 11:44 | Observation (INO) | payer SELFPAY ==
[2021-06-19] MEDS ORDERED: solu-MEDROL 125 MG, Sterile H2O 10 ml 2 ML IV ONE ×2 (12:01)
--- NOTE | 2021-06-19 12:21 | XRAY ---
Indication: Short of breath. Weakness. Positive Covid 19. Comparison: March 14, 2019. Portable chest underinflated with new mild bibasilar infiltrates/atelectasis. Heart not enlarged again with incidental mediastinal/right hilar calcified nodes. Bony thorax intact.
[2021-06-19] MEDS ORDERED: solu-MEDROL ONE (12:25)
[2021-06-19] MEDS: Sodium Chloride 0.9% 1000 ML 1,000 ML IV SCH (12:26)
[2021-06-19 12:42] LABS: Absolute Neutrophil Ct (ANC) 2.09 (1.4-6.9); Basophil (Absolute #) 0.01 (0-0.4); Eosinophil (Absolute #) 0 (0-0.5); Hematocrit 42.8 % (35-47); Hemoglobin 13.7 gm/dl (12.0-16.0); Lymphocyte (Absolute #) 1.57 (1.0-4.6); Lymphocytes % 37.2 % (24.0-44.0); Mean Cell Volume 85.6 fl (78-100); Mean Corpuscular Hemoglobin 27.4 pg (26-32); Mean Platelet Volume 10.5 fl (7.5-11.0); Monocyte (Absolute #) 0.55 (0.0-1.3); Neutrophil % 49.6 % (36.0-66.0); Platelet Count 194 K/mm3 (150-450); Red Cell Distribution Width 12.9 % (11.5-14.0); White Blood Count 4.2 K/mm3 (4.0-10.5)
[2021-06-19 12:50] LABS: INR 1.06 (0.8-3.0); PROTIME 12.5 SECONDS (9.4-12.5)
[2021-06-19 12:53] LABS: Appearance SLIGHTLY CLOUDY (CLEAR); Bilirubin NEGATIVE (NEGATIVE); Blood NEGATIVE Ery/ul (0-5); Glucose 50 mg/dL (NEGATIVE); Ketones NEGATIVE (NEGATIVE); Leukocyte Esterase NEGATIVE (NEGATIVE); Mucus SLIGHT /HPF (NEGATIVE); Nitrite NEGATIVE (NEGATIVE); Protein,Urine Dip NEGATIVE (Negative); Specific Gravity 1.016 (1.005-1.025); Urobilinogen NEGATIVE mg/dL (0-1)
[2021-06-19 12:55] LABS: ALBUMIN 3.7 g/dL (3.5-5.0); ALKALINE PHOSPHATASE 107 U/L (38-126); ANION GAP 12.9 MEQ/L (5-15); BLOOD UREA NITROGEN 8 mg/dL (7-17); CHLORIDE 100 mmol/L (98-107); Calcium 8.4 mg/dL (8.4-10.2); Carbon Dioxide 27 mmol/L (22-30); Creatinine 1 0.64 mg/dL (0.52-1.04); EST GLOMERULAR FILTRATION RATE > 60.0 ML/MIN; Glucose 141 mg/dL (74-106); Potassium 3.8 mmol/L (3.5-5.1); SGOT/AST 43 U/L (14-36); SGPT/ALT 37 U/L (0-35); SODIUM 136 mmol/L (137-145); Total Protein 6.4 g/dL (6.3-8.2)
[2021-06-19 12:57] LABS: INFLUENZA A NEGATIVE (NEGATIVE); INFLUENZA B NEGATIVE (NEGATIVE)
--- NOTE | 2021-06-19 13:05 | ERPHSYRPT ---
- History of Present Illness Time Seen by Provider: 06/19/21 12:05 Source: patient Exam Limitations: no limitations Patient Subjective Stated Complaint: pt reports covid symptoms starting 06/10/21, states she was tested 06/15 at [facility] [place] and was positive. pt reports cough, shortness of breath fatigue that is not improving Triage Nursing Assessment: pt is aox3, pupils perrl, afebrile, pt appears tired, pt is short of breath on arrival, pt lung sounds are diminished at both bases posteriorly with some rales noted as well, intermittent cough noted, cap refill < 2 seconds, radial pulses strong and equal, pt skin pink warm dry. Physician History: Patient is a 46-year-old female who presents with a complaint of testing positive on 1225 for Covid. She was diagnosed at ambulatory her in [place] and she was placed on no treatment. She says she has a weakened immune system and her history includes 8 episodes of mononucleosis. She says that she has a cough which is nonproductive she has been short of air which has been increasing she has been feeling worse she is also been wheezing she is lost her sense of t aste and smell. She complains of a severe headache. Timing/Duration: week(s) (1) Cough Quality/Degree: dry cough Possible Cause: illness exposure Modifying Factors: Improves With: coughing Associated Symptoms: fever, chills, cough, headache, nasal congestion, shortness of breath Allergies/Adverse Reactions: amoxicillin Allergy (Verified 06/19/21 12:10) Penicillins Allergy (Verified 06/19/21 12:10) Sulfa (Sulfonamide Antibiotics) [Sulfa(Sulfonamide Antibiotics)] Allergy (Verified 06/19/21 12:10) Home Medications: Venlafaxine HCl [Effexor] 37.5 mg PO BID 12/17/14 [History] clonazePAM [Klonopin] 0.5 mg PO DAILY PRN PRN 12/17/14 [History] Metformin HCl Xr 500 mg [Glucophage XR 500 MG] 500 mg PO BID 01/18/19 [History] estradioL [Estradiol] 1 mg PO DAILY 01/18/19 [History] lisinopriL [Lisinopril] 2.5 mg PO BID 01/13/21 [History] Hx Tetanus, Diphtheria Vaccination/Date Given: Yes Hx Influenza Vaccination/Date Given: No Hx Pneumococcal Vaccination/Date Given: No Immunizations Up to Date: Yes Travel Risk - International Travel Have you traveled outside of the country in past 3 weeks: No - Coronavirus Screening Are you exhibiting any of the following symptoms?: Yes Symptoms: Cough: New Onset, Shortness of Breath, Headaches/Body Aches/Fatigue Close contact with a COVID-19 positive Pt in past 14-21 Days: No - Vaccine Status Have you recieved a Covid-19 vaccination: No - Review of Systems Constitutional: Fever, Chills, Fatigue, Malaise Eyes: No Symptoms Ears, Nose, & Throat: No Symptoms Respiratory: Cough, Dyspnea, Dyspnea on Exertion (BRITO), Wheezing Cardiac: No Chest Pain, No Edema, No Syncope Abdominal/Gastrointestinal: No Abdominal Pain, No Nausea, No Vomiting, No Diarrhea Genitourinary Symptoms: No Dysuria Musculoskeletal: No Back Pain, No Neck Pain Skin: No Rash Neurological: No Dizziness, No Focal Weakness, No Sensory Changes Psychological: No Symptoms Endocrine: No Symptoms All Other Systems: Reviewed and Negative - Past Medical History Pertinent Past Medical History: Yes Neurological History: No Pertinent History ENT History: No Pertinent History Cardiac History: No Pertinent History Respiratory History: No Pertinent History Endocrine Medical History: Diabetes Type II Musculoskeletal History: No Pertinent History, Other GI Medical History: Diverticulitis, Diverticulosis, Gallbladder Disease History: No Pertinent History Psycho-Social History: Anxiety, Depression Female Reproductive Disorders: Endometriosis, Other Other Medical History: mononucleosis - Past Surgical History Past Surgical History: Yes Neuro Surgical History: No Pertinent History Cardiac: No Pertinent History Respiratory: No Pertinent History Gastrointestinal: Bowel Surgery, Cholecystectomy Genitourinary: No Pertinent History Musculoskeletal: No Pertinent History Female Surgical History: Hysterectomy Other Surgical History: bowel resection on 04/06/18. - Social History Smoking Status: Former smoker Exposure to second hand smoke: Yes Drug Use: none Patient Lives Alone: No Significant Family History: no pertinent family hx - Female History Hx Last Menstrual Period: hyst Hx Now: No - Nursing Vital Signs Nursing Vital Signs: Initial Vital Signs Temperature 97.4 F 06/19/21 11:56 Pulse Rate 88 06/19/21 11:56 Respiratory Rate 22 06/19/21 11:56 Blood Pressure 128/86 06/19/21 11:56 O2 Sat by Pulse Oximetry 87 L 06/19/21 11:56 Pain Scale Pain Intensity 4 - Physical Exam General Appearance: mild distress, alert Eye Exam: PERRL/EOMI, eyes nml inspection Ears, Nose, Throat Exam: normal ENT inspection, TMs normal, pharynx normal, moist mucous membranes Neck Exam: normal inspection, non-tender, supple, full range of motion Respiratory Exam: respiratory distress, diminished breath sounds, crackles/rales, wheezing Cardiovascular Exam: regular rate/rhythm, normal heart sounds Gastrointestinal/Abdomen Exam: soft, No tenderness Back Exam: normal inspection, No CVA tenderness, No vertebral tenderness Extremity Exam: normal inspection, normal range of motion Neurologic Exam: alert, oriented x 3, cooperative, normal mood/affect, sensation nml, No motor deficits Skin Exam: normal color, warm, dry, No rash Lymphatic Exam: No adenopathy SpO2 Interpretation: hypoxic, O2 applied SpO2: 95 O2 Delivery: Nasal Cannula (3L) - Course Nursing assessment & vital signs reviewed: Yes EKG Interpreted by Me: RATE (82), Sinus Rhythm, NORMAL AXIS, NORMAL INTERVALS, NORMAL QRS, NORMAL ST-T - Radiology Exams Chest X-ray Interpretation: Reviewed by me Ordered Tests: Active Orders 24 hr Category Date Time Status EKG-ER Only STAT Care 06/19/21 12:01 Active IV Insertion STAT Care 06/19/21 12:01 Active Oxygen-ED Only Nasal Cannula 2 lpm Care 06/19/21 12:49 Active CHEST 1 VIEW (PORTABLE) Stat Exams 06/19/21 12:02 Completed BLOOD CULTURE Stat Lab 06/19/21 12:30 Received CBC W DIFF Stat Lab 06/19/21 12:15 Completed CMP Stat Lab 06/19/21 12:15 Completed D-DIMER QUANTITATIVE Stat Lab 06/19/21 12:15 Completed INFLUENZA A+B ROSALIO Stat Lab 06/19/21 12:01 Completed Lactic Acid Stat Lab 06/19/21 12:35 Completed NT PRO BNP Stat Lab 06/19/21 12:15 Completed PROTIME WITH INR Stat Lab 06/19/21 12:15 Completed TROPONIN Q3H Lab 06/19/21 12:15 Completed TROPONIN Q3H Lab 06/19/21 15:15 Ordered TROPONIN Q3H Lab 06/19/21 18:15 Ordered TROPONIN Q3H Lab 06/19/21 21:15 Ordered TROPONIN Q3H Lab 06/20/21 00:15 Ordered UA W/RFX UR CULTURE Stat Lab 06/19/21 12:23 Completed Medication Summary Generic Name Dose Route Start Last Admin Trade Name Stevenson PRN Reason Stop Dose Admin Sodium Chloride 1,000 mls @ 100 mls/hr 06/19/21 12:15 06/19/21 12:26 Sodium Chloride 0.9% 1000 Ml IV 07/19/21 12:14 100 mls/hr .Q10H SUSAN Administration Discontinued Medications Generic Name Dose Route Start Last Admin Trade Name Stevenson PRN Reason Stop Dose Admin Methylprednisolone Sodium 0 mg 06/19/21 12:01 06/19/21 12:27 Succinate 125 mg/ Sterile IV 06/19/21 12:02 125 mg Water 2 ml STAT ONE Administration Methylprednisolone Sodium Succinate Confirm 06/19/21 12:25 Methylprednis Sod Succ 125 Mg/2 Ml Vial Administered 06/19/21 12:26 Dose 125 mg .ROUTE .STK-MED ONE Lab/Rad Data: Laboratory Result Diagrams 06/19/21 12:15 06/19/21 12:15 Laboratory Results 06/19/21 06/19/21 06/19/21 Range/Units 12:35 12:23 12:15 WBC (4.0-10.5) K/mm3 RBC (4.1-5.4) M/mm3 Hgb (12.0-16.0) gm/dl Hct (35-47) % MCV (78-100) fl MCH (26-32) pg MCHC (32-36) g/dl RDW (11.5-14.0) % Plt Count (150-450) K/mm3 MPV (7.5-11.0) fl Gran % (36.0-66.0) % Eos # (Auto) (0-0.5) Absolute Lymphs (auto) (1.0-4.6) Absolute Monos (auto) (0.0-1.3) Lymphocytes % (24.0-44.0) % Monocytes % (0.0-12.0) % Eosinophils % (0.00-5.0) % Basophils % (0.0-0.4) % Absolute Granulocytes (1.4-6.9) Basophils # (0-0.4) PT (9.4-12.5) SECONDS INR (0.8-3.0) D-Dimer (215-500) ng/mL Sodium (137-145) mmol/L Potassium (3.5-5.1) mmol/L Chloride (98-107) mmol/L Carbon Dioxide (22-30) mmol/L Anion Gap (5-15) MEQ/L BUN (7-17) mg/dL Creatinine (0.52-1.04) mg/dL Estimated GFR ML/MIN Glucose (74-106) mg/dL Lactic Acid 1.3 (0.4-2.0) Calcium (8.4-10.2) mg/dL Total Bilirubin (0.2-1.3) mg/dL AST (14-36) U/L ALT (0-35) U/L Alkaline Phosphatase (38-126) U/L Troponin I < 0.012 (0.000-0.034) ng/mL NT-Pro-B Natriuret Pep (0-450) pg/mL Serum Total Protein (6.3-8.2) g/dL Albumin (3.5-5.0) g/dL Urine Color YELLOW (YELLOW) Urine Appearance SLIGHTLY CLOUDY (CLEAR) Urine pH 5.0 (5-6) Ur Specific Alexander 1.016 (1.005-1.025) Urine Protein NEGATIVE (Negative) Urine Ketones NEGATIVE (NEGATIVE) Urine Blood NEGATIVE (0-5) Cornelius/ul Urine Nitrite NEGATIVE (NEGATIVE) Urine Bilirubin NEGATIVE (NEGATIVE) Urine Urobilinogen NEGATIVE (0-1) mg/dL Ur Leukocyte Esterase NEGATIVE (NEGATIVE) Urine WBC (Auto) NONE (0-5) /HPF Urine RBC (Auto) NONE (0-2) /HPF U Epithel Cells (Auto) NONE (FEW) /HPF Urine Bacteria (Auto) NONE (NEGATIVE) /HPF Urine Mucus (Auto) SLIGHT (NEGATIVE) /HPF Urine Culture Reflexed NO (NO) Urine Glucose 50 (NEGATIVE) mg/dL Influenza Type A Ag (NEGATIVE) Influenza Type B Ag (NEGATIVE) 06/19/21 06/19/21 06/19/21 Range/Units 12:15 12:15 12:15 WBC 4.2 (4.0-10.5) K/mm3 RBC 5.00 (4.1-5.4) M/mm3 Hgb 13.7 (12.0-16.0) gm/dl Hct 42.8 (35-47) % MCV 85.6 (78-100) fl MCH 27.4 (26-32) pg MCHC 32.0 (32-36) g/dl RDW 12.9 (11.5-14.0) % Plt Count 194 (150-450) K/mm3 MPV 10.5 (7.5-11.0) fl Gran % 49.6 (36.0-66.0) % Eos # (Auto) 0 (0-0.5) Absolute Lymphs (auto) 1.57 (1.0-4.6) Absolute Monos (auto) 0.55 (0.0-1.3) Lymphocytes % 37.2 (24.0-44.0) % Monocytes % 13.0 H (0.0-12.0) % Eosinophils % 0.0 (0.00-5.0) % Basophils % 0.2 (0.0-0.4) % Absolute Granulocytes 2.09 (1.4-6.9) Basophils # 0.01 (0-0.4) PT 12.5 (9.4-12.5) SECONDS INR 1.06 (0.8-3.0) D-Dimer 937 H* (215-500) ng/mL Sodium 136 L (137-145) mmol/L Potassium 3.8 (3.5-5.1) mmol/L Chloride 100 (98-107) mmol/L Carbon Dioxide 27 (22-30) mmol/L Anion Gap 12.9 (5-15) MEQ/L BUN 8 (7-17) mg/dL Creatinine 0.64 (0.52-1.04) mg/dL Estimated GFR > 60.0 ML/MIN Glucose 141 H (74-106) mg/dL Lactic Acid (0.4-2.0) Calcium 8.4 (8.4-10.2) mg/dL Total Bilirubin 0.50 (0.2-1.3) mg/dL AST 43 H (14-36) U/L ALT 37 H (0-35) U/L Alkaline Phosphatase 107 (38-126) U/L Troponin I (0.000-0.034) ng/mL NT-Pro-B Natriuret Pep 17.3 (0-450) pg/mL Serum Total Protein 6.4 (6.3-8.2) g/dL Albumin 3.7 (3.5-5.0) g/dL Urine Color (YELLOW) Urine Appearance (CLEAR) Urine pH (5-6) Ur Specific Alexander (1.005-1.025) Urine Protein (Negative) Urine Ketones (NEGATIVE) Urine Blood (0-5) Cornelius/ul Urine Nitrite (NEGATIVE) Urine Bilirubin (NEGATIVE) Urine Urobilinogen (0-1) mg/dL Ur Leukocyte Esterase (NEGATIVE) Urine WBC (Auto) (0-5) /HPF Urine RBC (Auto) (0-2) /HPF U Epithel Cells (Auto) (FEW) /HPF Urine Bacteria (Auto) (NEGATIVE) /HPF Urine Mucus (Auto) (NEGATIVE) /HPF Urine Culture Reflexed (NO) Urine Glucose (NEGATIVE) mg/dL Influenza Type A Ag (NEGATIVE) Influenza Type B Ag (NEGATIVE) 06/19/21 Range/Units 12:01 WBC (4.0-10.5) K/mm3 RBC (4.1-5.4) M/mm3 Hgb (12.0-16.0) gm/dl Hct (35-47) % MCV (78-100) fl MCH (26-32) pg MCHC (32-36) g/dl RDW (11.5-14.0) % Plt Count (150-450) K/mm3 MPV (7.5-11.0) fl Gran % (36.0-66.0) % Eos # (Auto) (0-0.5) Absolute Lymphs (auto) (1.0-4.6) Absolute Monos (auto) (0.0-1.3) Lymphocytes % (24.0-44.0) % Monocytes % (0.0-12.0) % Eosinophils % (0.00-5.0) % Basophils % (0.0-0.4) % Absolute Granulocytes (1.4-6.9) Basophils # (0-0.4) PT (9.4-12.5) SECONDS INR (0.8-3.0) D-Dimer (215-500) ng/mL Sodium (137-145) mmol/L Potassium (3.5-5.1) mmol/L Chloride (98-107) mmol/L Carbon Dioxide (22-30) mmol/L Anion Gap (5-15) MEQ/L BUN (7-17) mg/dL Creatinine (0.52-1.04) mg/dL Estimated GFR ML/MIN Glucose (74-106) mg/dL Lactic Acid (0.4-2.0) Calcium (8.4-10.2) mg/dL Total Bilirubin (0.2-1.3) mg/dL AST (14-36) U/L ALT (0-35) U/L Alkaline Phosphatase (38-126) U/L Troponin I (0.000-0.034) ng/mL NT-Pro-B Natriuret Pep (0-450) pg/mL Serum Total Protein (6.3-8.2) g/dL Albumin (3.5-5.0) g/dL Urine Color (YELLOW) Urine Appearance (CLEAR) Urine pH (5-6) Ur Specific Alexander (1.005-1.025) Urine Protein (Negative) Urine Ketones (NEGATIVE) Urine Blood (0-5) Cornelius/ul Urine Nitrite (NEGATIVE) Urine Bilirubin (NEGATIVE) Urine Urobilinogen (0-1) mg/dL Ur Leukocyte Esterase (NEGATIVE) Urine WBC (Auto) (0-5) /HPF Urine RBC (Auto) (0-2) /HPF U Epithel Cells (Auto) (FEW) /HPF Urine Bacteria (Auto) (NEGATIVE) /HPF Urine Mucus (Auto) (NEGATIVE) /HPF Urine Culture Reflexed (NO) Urine Glucose (NEGATIVE) mg/dL Influenza Type A Ag NEGATIVE (NEGATIVE) Influenza Type B Ag NEGATIVE (NEGATIVE) - Progress Progress: unchanged Air Movement: fair Blood Culture(s) Obtained: Yes Antibiotics given: No Discussed with : Other (Dr Peters) Will see patient in: hospital (full admit) - Departure Departure Disposition: In-patient Admission Clinical Impression: COVID-19 Condition: Fair Critical Care Time: No
[2021-06-19 13:06] LABS: NT PRO BNP 17.3 pg/mL (0-450)
[2021-06-19 14:05] LABS: INFLUENZA A NEGATIVE (NEGATIVE); INFLUENZA B NEGATIVE (NEGATIVE); RESPIRATORY SYNCTIAL VIRUS NEGATIVE (Negative)
[2021-06-19 14:18] LABS: SARS-CoV-2 Xpert Express POSITIVE (NEGATIVE)
[2021-06-19] MEDS ORDERED: CLONAZEPAM 0.25 MG PO PRN (15:39)
[2021-06-19] MEDS ORDERED: HUMALOG SQ PRN (15:56)
[2021-06-19] MEDS ORDERED: HYDROCODONE-CHLORPHEN ER SUSP PO PRN (15:56)
[2021-06-19] MEDS ORDERED: Zofran 4 MG/2 ML VIAL IV PRN (15:56)
[2021-06-19] MEDS ORDERED: Ativan 2 MG/1 ML VIAL IV PRN (15:56)
[2021-06-19] MEDS ORDERED: TYLENOL EXTRA STRENGTH 500 MG PO PRN (15:56)
[2021-06-19] MEDS ORDERED: FEVERALL 650 MG PR PRN (15:56)
[2021-06-19] MEDS ORDERED: VENTOLIN COMMON CANISTER IH PRN (15:59)
[2021-06-19] MEDS: OLUMIANT PO SCH (16:58)
[2021-06-19] MEDS: ESTRACE 1 MG PO SCH (16:58)
[2021-06-19] MEDS: clonazePAM PO PRN (16:58)
[2021-06-19] MEDS: ENOXAPARIN SODIUM SQ SCH (16:59)
[2021-06-19] MEDS ORDERED: REMDESIVIR 200 MG in Sodium Chloride 0.9% 250 ML 250 ML IV ONE (17:00)
[2021-06-19] MEDS: Lomotil PO PRN (17:29)
[2021-06-19] MEDS: Pepcid 20 MG VIAL IV SCH (22:20)
[2021-06-19] MEDS: Glucophage XR 500 MG PO SCH (22:20)
[2021-06-19] MEDS: EFFEXOR 37.5 MG PO SCH (22:20)
[2021-06-19] MEDS: Zestril 5 MG PO SCH (22:20)
[2021-06-20] MEDS: Sodium Chloride 0.9% 1000 ML 1,000 ML IV SCH (04:34)
[2021-06-20 05:26] LABS: Hematocrit 40.2 % (35-47); Hemoglobin 12.8 gm/dl (12.0-16.0); Mean Cell Volume 86.3 fl (78-100); Mean Corpuscular Hemoglobin 27.5 pg (26-32); Mean Corpuscular Hgb Concent. 31.8 g/dl (32-36); Mean Platelet Volume 10.4 fl (7.5-11.0); Platelet Count 225 K/mm3 (150-450); Red Blood Count 4.66 M/mm3 (4.1-5.4); Red Cell Distribution Width 12.6 % (11.5-14.0); White Blood Count 2.5 K/mm3 (4.0-10.5)
[2021-06-20 05:56] LABS: ALBUMIN 3.6 g/dL (3.5-5.0); ALKALINE PHOSPHATASE 100 U/L (38-126); ANION GAP 11.7 MEQ/L (5-15); BLOOD UREA NITROGEN 13 mg/dL (7-17); CHLORIDE 103 mmol/L (98-107); Calcium 8.5 mg/dL (8.4-10.2); Carbon Dioxide 25 mmol/L (22-30); Creatinine 1 0.62 mg/dL (0.52-1.04); EST GLOMERULAR FILTRATION RATE > 60.0 ML/MIN; Glucose 154 mg/dL (74-106); SGOT/AST 44 U/L (14-36); SGPT/ALT 41 U/L (0-35); SODIUM 136 mmol/L (137-145); Total Protein 6.5 g/dL (6.3-8.2)
[2021-06-20] MEDS: clonazePAM PO PRN (08:10)
--- NOTE | 2021-06-20 08:53 | HP ---
CHIEF COMPLAINT: Frequent diarrhea, severe fatigue, frequent cough. HISTORY OF PRESENT ILLNESS: The patient is a 46-year-old white female who has had these complaints for seven days much worse the last four days. She was tested on 06/15/2021 and was positive. She is now unable to ambulate without help and very short of breath. She has complications of diabetes mellitus, hypertension and anxiety disorder. CORONAVIRUS SCREENING: She was tested on 06/15/2021 and was positive. Vaccine status: No vaccines. MEDICATIONS: Effexor 37.5 q.d. clonazepam 0.5 PRN panic attack, Metformin 500 q.d., estradiol 1 mg q.d., lisinopril 2.5 q.d. ALLERGIES: AMOXICILLIN. PENICILLIN, SULFA. PAST MEDICAL HISTORY: Diabetes. Hypertension. Anxiety disorder. Diverticulitis. Gallbladder disease. PAST SURGICAL HISTORY: Bowel obstruction for adhesions. Cholecystectomy. Hysterectomy. REVIEW OF SYSTEMS: HEENT: No problems hearing, seeing or taste. CHEST: Sternum aches, frequent cough, shortness of breath and wheezing at rest. CVS: No exertional chest pain or palpitations. ABDOMEN: She has had some diarrhea three or four times a day. EXTREMITIES: Weakness and aching all over. PHYSICAL EXAMINATION: The patient is alert, oriented and in no severe distress, looks chronically ill. VITAL SIGNS: Temperature 97F, pulse 88, respirations 22, blood pressure 128/86. O2 saturation on room air is 87%. HEENT: Pupils equal and reactive to light. NECK: Supple without adenopathy. CHEST: Few wheezes. CVS: Regular rate. ABDOMEN: Soft. Tender all over. EXTREMITIES: No cyanosis. No edema. LAB DATA AND TESTS: Chest x-ray showed COVID pneumonia. White count was slightly low. IMPRESSION: The patient has: 1) COVID pneumonia. 2) Diabetes mellitus. 3) Hypertension. 4) Diarrhea from COVID. PLAN: Will start on the usual COVID medications, oxygen and some Lomotil. PROGNOSIS: Good.
--- NOTE | 2021-06-20 09:08 | XRAY ---
Indication: Short of breath. Positive Covid 19. Comparison: One day earlier. Portable chest again underinflated with mild bilateral patchy infiltrates/atelectasis, slightly improved in left lung base. Heart not enlarged. No new cardiopulmonary abnormalities.
[2021-06-20] MEDS: EFFEXOR 37.5 MG PO SCH ×2 (10:12→20:59)
[2021-06-20] MEDS: DECADRON 10MG INJ. IV SCH (10:12)
[2021-06-20] MEDS: Glucophage XR 500 MG PO SCH ×2 (10:13→20:59)
[2021-06-20] MEDS: ESTRACE 1 MG PO SCH (10:13)
[2021-06-20] MEDS: OLUMIANT PO SCH (10:13)
[2021-06-20] MEDS: Pepcid 20 MG VIAL IV SCH ×2 (10:15→20:59)
[2021-06-20] MEDS: Zestril 5 MG PO SCH ×2 (10:18→20:59)
[2021-06-20] MEDS: ENOXAPARIN SODIUM SQ SCH (10:29)
[2021-06-20] MEDS: REMDESIVIR 100 MG in Sodium Chloride 0.9% 100 ML BAG 100 ML IV SCH (16:15)
[2021-06-20] MEDS: Ativan 1 MG PO PRN (21:17)
[2021-06-21] MEDS: Sodium Chloride 0.9% 1000 ML 1,000 ML IV SCH ×2 (01:57→19:35)
[2021-06-21 06:47] LABS: Hematocrit 36.3 % (35-47); Hemoglobin 11.5 gm/dl (12.0-16.0); Mean Cell Volume 87.3 fl (78-100); Mean Corpuscular Hemoglobin 27.6 pg (26-32); Mean Corpuscular Hgb Concent. 31.7 g/dl (32-36); Mean Platelet Volume 10.5 fl (7.5-11.0); Platelet Count 271 K/mm3 (150-450); Red Blood Count 4.16 M/mm3 (4.1-5.4); Red Cell Distribution Width 12.5 % (11.5-14.0); White Blood Count 6.6 K/mm3 (4.0-10.5)
[2021-06-21 07:24] LABS: ALKALINE PHOSPHATASE 85 U/L (38-126); ANION GAP 11.9 MEQ/L (5-15); BLOOD UREA NITROGEN 16 mg/dL (7-17); CHLORIDE 105 mmol/L (98-107); Calcium 8.5 mg/dL (8.4-10.2); Carbon Dioxide 24 mmol/L (22-30); Creatinine 1 0.63 mg/dL (0.52-1.04); EST GLOMERULAR FILTRATION RATE > 60.0 ML/MIN; Glucose 134 mg/dL (74-106); Potassium 4.2 mmol/L (3.5-5.1); SGOT/AST 34 U/L (14-36); SGPT/ALT 39 U/L (0-35); SODIUM 136 mmol/L (137-145); Total Protein 5.6 g/dL (6.3-8.2)
[2021-06-21] MEDS: DECADRON 10MG INJ. IV SCH (09:03)
[2021-06-21] MEDS: Pepcid 20 MG VIAL IV SCH ×2 (09:03→21:01)
[2021-06-21] MEDS: Zestril 5 MG PO SCH ×2 (09:04→21:01)
[2021-06-21] MEDS: ENOXAPARIN SODIUM SQ SCH (09:04)
[2021-06-21] MEDS: OLUMIANT PO SCH (09:04)
[2021-06-21] MEDS: Glucophage XR 500 MG PO SCH ×2 (09:05→21:01)
[2021-06-21] MEDS: ESTRACE 1 MG PO SCH (09:06)
[2021-06-21] MEDS: EFFEXOR 37.5 MG PO SCH ×2 (09:06→21:01)
[2021-06-21] MEDS: Lomotil PO PRN (09:24)
[2021-06-21] MEDS: REMDESIVIR 100 MG in Sodium Chloride 0.9% 100 ML BAG 100 ML IV SCH (16:02)
[2021-06-21] MEDS: Ativan 1 MG PO PRN (19:35)
[2021-06-22 07:02] LABS: Hematocrit 35.7 % (35-47); Hemoglobin 11.2 gm/dl (12.0-16.0); Mean Cell Volume 87.1 fl (78-100); Mean Corpuscular Hemoglobin 27.3 pg (26-32); Mean Corpuscular Hgb Concent. 31.4 g/dl (32-36); Mean Platelet Volume 10.6 fl (7.5-11.0); Platelet Count 299 K/mm3 (150-450); Red Cell Distribution Width 12.4 % (11.5-14.0); White Blood Count 7.2 K/mm3 (4.0-10.5)
[2021-06-22 07:33] LABS: ALBUMIN 3.1 g/dL (3.5-5.0); ALKALINE PHOSPHATASE 75 U/L (38-126); ANION GAP 11.5 MEQ/L (5-15); BLOOD UREA NITROGEN 17 mg/dL (7-17); CHLORIDE 105 mmol/L (98-107); Calcium 8.4 mg/dL (8.4-10.2); Carbon Dioxide 25 mmol/L (22-30); Creatinine 1 0.76 mg/dL (0.52-1.04); EST GLOMERULAR FILTRATION RATE > 60.0 ML/MIN; Glucose 126 mg/dL (74-106); Potassium 3.9 mmol/L (3.5-5.1); SGOT/AST 29 U/L (14-36); SGPT/ALT 39 U/L (0-35); SODIUM 137 mmol/L (137-145); Total Protein 5.8 g/dL (6.3-8.2)
[2021-06-22] MEDS: OLUMIANT PO SCH (09:19)
[2021-06-22] MEDS: Glucophage XR 500 MG PO SCH ×2 (09:19→21:56)
[2021-06-22] MEDS: Pepcid 20 MG VIAL IV SCH ×2 (09:19→21:56)
[2021-06-22] MEDS: EFFEXOR 37.5 MG PO SCH ×2 (09:19→21:56)
[2021-06-22] MEDS: DECADRON 10MG INJ. IV SCH (09:20)
[2021-06-22] MEDS: ESTRACE 1 MG PO SCH (09:21)
[2021-06-22] MEDS: Zestril 5 MG PO SCH ×2 (12:20→21:56)
[2021-06-22] MEDS: Protonix 40MG Tablet PO SCH (15:41)
[2021-06-22] MEDS: REMDESIVIR 100 MG in Sodium Chloride 0.9% 100 ML BAG 100 ML IV SCH (15:41)
[2021-06-22] MEDS: Sodium Chloride 0.9% 1000 ML 1,000 ML IV SCH (15:41)
[2021-06-22] MEDS: Lomotil PO PRN (21:58)
[2021-06-23 05:02] LABS: Hematocrit 36.2 % (35-47); Hemoglobin 11.5 gm/dl (12.0-16.0); Mean Cell Volume 86.6 fl (78-100); Mean Corpuscular Hemoglobin 27.5 pg (26-32); Mean Corpuscular Hgb Concent. 31.8 g/dl (32-36); Mean Platelet Volume 10.5 fl (7.5-11.0); Platelet Count 344 K/mm3 (150-450); Red Blood Count 4.18 M/mm3 (4.1-5.4); Red Cell Distribution Width 12.3 % (11.5-14.0); White Blood Count 8.7 K/mm3 (4.0-10.5)
[2021-06-23 05:19] LABS: ALBUMIN 3.2 g/dL (3.5-5.0); ALKALINE PHOSPHATASE 75 U/L (38-126); ANION GAP 10.1 MEQ/L (5-15); BLOOD UREA NITROGEN 16 mg/dL (7-17); CHLORIDE 103 mmol/L (98-107); Calcium 8.3 mg/dL (8.4-10.2); Carbon Dioxide 27 mmol/L (22-30); Creatinine 1 0.81 mg/dL (0.52-1.04); EST GLOMERULAR FILTRATION RATE > 60.0 ML/MIN; Glucose 145 mg/dL (74-106); Potassium 3.9 mmol/L (3.5-5.1); SGOT/AST 20 U/L (14-36); SGPT/ALT 35 U/L (0-35); SODIUM 136 mmol/L (137-145); Total Protein 5.6 g/dL (6.3-8.2)
[2021-06-23 07:41] VITALS: BP 141/74
[2021-06-23 07:58] VITALS: O2SAT 95
[2021-06-23] MEDS: Glucophage XR 500 MG PO SCH (09:54)
[2021-06-23] MEDS: Zestril 5 MG PO SCH (09:54)
[2021-06-23] MEDS: Pepcid 20 MG VIAL IV SCH (09:55)
[2021-06-23] MEDS: Protonix 40MG Tablet PO SCH (09:55)
[2021-06-23] MEDS: ESTRACE 1 MG PO SCH (10:02)
[2021-06-23] MEDS: EFFEXOR 37.5 MG PO SCH (10:02)
[2021-06-23] MEDS: OLUMIANT PO SCH (10:04)
[2021-06-23] MEDS: DECADRON 10MG INJ. IV SCH (10:04)
[2021-06-23 11:02] VITALS: PULSE 58
== END 2021-06-23 11:55 | disposition home or self-care (01) ==
LOC: ED 11:44 → MED SURG 15:05
PROVIDERS: ADMIT Family Medicine; ATTEND Family Medicine
DX: U07.1 COVID-19 (principal); J12.82 Pneumonia due to coronavirus disease 2019; E11.9 Type 2 diabetes mellitus without complications; I10 Essential (primary) hypertension; R19.7 Diarrhea, unspecified; F41.9 Anxiety disorder, unspecified; Z79.899 Other long term (current) drug therapy; Z20.828 Contact with and (suspected) exposure to other viral communicable diseases
CPT/HCPCS: 0241U; 36000; 36415; 71045; 80053; 81001; 82947; 83036; 83605; 83880; 84484; 85025; 85027; 85379; 85610; 87040; 87400; 93005; 93268; 94762; 96374; 99285; G0378; J1100; J1650; J1817; J2405; J2930; A9270-GY

== ENCOUNTER 2021-09-09 10:53 | Emergency (ER) | payer BC, OTHER ==
--- NOTE | 2021-09-09 11:06 | ERPHSYRPT ---
- History of Present Illness Time Seen by Provider: 09/09/21 11:06 Historian: patient Exam Limitations: no limitations Physician History: This is a 46-year-old, obese white female who is a patient of Dr. Melony Fofana and presents with 4-week history of intermittent abdominal pain on the right lower side including right lower quadrant and right suprapubic region. Patient has had a history of endometriosis in the past as well as a history of bowel resection in 2018. She has had a history of hysterectomy and cholecystectomy. Patient has a history of hypertension, diabetes and anxiety. In the last couple days her pain has become more significant. She has had nausea but no vomiting. She has no bowel movement. Patient denies chest pain and she denies shortness of breath. She could not get into see her drafter heating and ventilating/surgeon until September and she did not feel as though she could wait that long to be evaluated. Timing/Duration: week(s) (4), intermittent (Right side), worse (Last couple of days) Quality: aching Abdominal Pain Onset Location: RLQ, suprapubic Pain Radiation: no radiation Severity of Pain-Max: moderate Severity of Pain-Current: mild (To moderate) Modifying Factors: Improves With: nothing Associated Symptoms: nausea, No chest pain, No diarrhea, No loss of appetite, No shortness of breath, No vomiting, No weakness Previous symptoms: same symptoms as today, no recent treatment Allergies/Adverse Reactions: amoxicillin Allergy (Verified 09/09/21 11:18) Penicillins Allergy (Verified 09/09/21 11:18) Sulfa (Sulfonamide Antibiotics) [Sulfa(Sulfonamide Antibiotics)] Allergy (Verified 09/09/21 11:18) Home Medications: Venlafaxine HCl [Effexor] 37.5 mg PO BID 12/17/14 [History] clonazePAM [Klonopin] 0.5 mg PO DAILY PRN PRN 12/17/14 [History] Metformin HCl Xr 500 mg [Glucophage XR 500 MG] 850 mg PO BID 01/18/19 [History] estradioL [Estradiol] 1 mg PO DAILY 01/18/19 [History] lisinopriL [Lisinopril] 2.5 mg PO BID 01/13/21 [History] Hx Tetanus, Diphtheria Vaccination/Date Given: Yes Hx Influenza Vaccination/Date Given: No Hx Pneumococcal Vaccination/Date Given: No Travel Risk - International Travel Have you traveled outside of the country in past 3 weeks: No - Coronavirus Screening Are you exhibiting any of the following symptoms?: No Close contact with a COVID-19 positive Pt in past 14-21 Days: No - Vaccine Status Have you recieved a Covid-19 vaccination: No - Review of Systems Constitutional: No Symptoms Eyes: No Symptoms Ears, Nose, & Throat: No Symptoms Respiratory: No Symptoms Cardiac: No Symptoms Abdominal/Gastrointestinal: Abdominal Pain (Right lower quadrant and right suprapubic region), Nausea, No Vomiting, No Diarrhea Genitourinary Symptoms: No Symptoms Musculoskeletal: No Symptoms Skin: No Symptoms Psychological: No Symptoms Endocrine: No Symptoms Hematologic/Lymphatic: No Symptoms Immunological/Allergic: No Symptoms All Other Systems: Reviewed and Negative - Past Medical History Pertinent Past Medical History: Yes Neurological History: No Pertinent History ENT History: No Pertinent History Cardiac History: No Pertinent History Respiratory History: No Pertinent History Endocrine Medical History: Diabetes Type II Musculoskeletal History: No Pertinent History, Other GI Medical History: Diverticulitis, Diverticulosis, Gallbladder Disease History: No Pertinent History Psycho-Social History: Anxiety, Depression Female Reproductive Disorders: Endometriosis, Other Other Medical History: mononucleosis - Past Surgical History Past Surgical History: Yes Neuro Surgical History: No Pertinent History Cardiac: No Pertinent History Respiratory: No Pertinent History Gastrointestinal: Bowel Surgery, Cholecystectomy Genitourinary: No Pertinent History Musculoskeletal: No Pertinent History Female Surgical History: Hysterectomy Other Surgical History: bowel resection on 04/06/18. - Social History Smoking Status: Former smoker Exposure to second hand smoke: No Drug Use: none Patient Lives Alone: No Significant Family History: no pertinent family hx - Nursing Vital Signs Nursing Vital Signs: Initial Vital Signs Temperature 97.5 F 09/09/21 11:03 Pulse Rate 79 09/09/21 11:03 Blood Pressure 127/76 09/09/21 11:03 O2 Sat by Pulse Oximetry 98 09/09/21 11:03 Pain Scale Pain Intensity 8 - Physical Exam General Appearance: no apparent distress, alert, anxiety Eye Exam: PERRL/EOMI, eyes nml inspection Ears, Nose, Throat Exam: normal ENT inspection, moist mucous membranes Neck Exam: normal inspection, non-tender, supple, full range of motion Respiratory Exam: normal breath sounds, lungs clear, airway intact, No chest tenderness, No respiratory distress Cardiovascular Exam: regular rate/rhythm, normal heart sounds, normal peripheral pulses Gastrointestinal/Abdomen Exam: soft, normal bowel sounds, tenderness (Right lower quadrant and right suprapubic area), guarding (Right lower quadrant and right suprapubic area), No rebound Pelvic Exam: not done Rectal Exam: not done Back Exam: normal inspection, normal range of motion, No CVA tenderness, No vertebral tenderness Extremity Exam: normal inspection Neurologic Exam: alert, oriented x 3, cooperative, orthotic fitter II-XII nml as tested, normal mood/affect, nml cerebellar function, nml station & gait, sensation nml Skin Exam: normal color, warm, dry Lymphatic Exam: No adenopathy SpO2 Interpretation: normal O2 Delivery: Room Air - Course Nursing assessment & vital signs reviewed: Yes Ordered Tests: Active Orders 24 hr Category Date Time Status IV Insertion STAT Care 09/09/21 11:19 Active ABDOMEN AND PELVIS W/0 CONTRAS [CT] Stat Exams 09/09/21 11:19 Completed AMYLASE Stat Lab 09/09/21 11:35 Completed CBC W DIFF Stat Lab 09/09/21 11:35 Completed CMP Stat Lab 09/09/21 11:35 Completed LIPASE Stat Lab 09/09/21 11:35 Completed Lactic Acid Stat Lab 09/09/21 11:33 Completed UA W/RFX UR CULTURE Stat Lab 09/09/21 12:16 Ordered Medication Summary Discontinued Medications Generic Name Dose Route Start Last Admin Trade Name Freq PRN Reason Stop Dose Admin Hydromorphone HCl 1 mg 09/09/21 11:19 09/09/21 11:28 Hydromorphone 1 Mg/1ml Inj 1 Mg/Ml Syringe IV 09/09/21 11:20 1 mg STAT ONE Administration Hydromorphone HCl Confirm 09/09/21 11:19 Hydromorphone 1 Mg/1ml Inj 1 Mg/Ml Syringe Administered 09/09/21 11:20 Dose 1 mg .ROUTE .STK-MED ONE Sodium Chloride 1,000 mls @ 999 mls/hr 09/09/21 11:19 09/09/21 11:29 Sodium Chloride 0.9% 1000 Ml IV 09/09/21 12:19 999 mls/hr .Q1H1M STA Administration Sodium Chloride Confirm 09/09/21 11:19 Sodium Chloride 0.9% 1000 Ml Administered 09/09/21 11:20 Dose 1,000 mls @ ud .ROUTE .STK-MED ONE Sodium Chloride Confirm 09/09/21 11:28 Sodium Chloride 0.9% 1000 Ml Administered 09/09/21 11:29 Dose 1,000 mls @ ud .ROUTE .STK-MED ONE Ondansetron HCl 4 mg 09/09/21 11:19 09/09/21 11:28 Ondansetron Hcl 4 Mg/2 Ml Vial IV 09/09/21 11:20 4 mg STAT ONE Administration Ondansetron HCl Confirm 09/09/21 11:19 Ondansetron Hcl 4 Mg/2 Ml Vial Administered 09/09/21 11:20 Dose 4 mg .ROUTE .STK-MED ONE Lab/Rad Data: Laboratory Result Diagrams 09/09/21 11:35 09/09/21 11:35 Laboratory Results 09/09/21 09/09/21 09/09/21 Range/Units 11:37 11:35 11:35 WBC 7.7 (4.0-10.5) K/mm3 RBC 4.98 (4.1-5.4) M/mm3 Hgb 14.1 (12.0-16.0) gm/dl Hct 42.6 (35-47) % MCV 85.5 (78-100) fl MCH 28.3 (26-32) pg MCHC 33.1 (32-36) g/dl RDW 13.6 (11.5-14.0) % Plt Count 297 (150-450) K/mm3 MPV 10.6 (7.5-11.0) fl Gran % 52.2 (36.0-66.0) % Eos # (Auto) 0.14 (0-0.5) Absolute Lymphs (auto) 2.59 (1.0-4.6) Absolute Monos (auto) 0.91 (0.0-1.3) Lymphocytes % 33.7 (24.0-44.0) % Monocytes % 11.8 (0.0-12.0) % Eosinophils % 1.8 (0.00-5.0) % Basophils % 0.5 (0.0-0.4) % Absolute Granulocytes 4.01 (1.4-6.9) Basophils # 0.04 (0-0.4) Sodium 137 (137-145) mmol/L Potassium 4.2 (3.5-5.1) mmol/L Chloride 105 (98-107) mmol/L Carbon Dioxide 25 (22-30) mmol/L Anion Gap 11.3 (5-15) MEQ/L BUN 13 (7-17) mg/dL Creatinine 0.78 (0.52-1.04) mg/dL Estimated GFR > 60.0 ML/MIN Glucose 111 H (74-106) mg/dL Lactic Acid (0.4-2.0) Calcium 8.9 (8.4-10.2) mg/dL Total Bilirubin 0.40 (0.2-1.3) mg/dL AST 17 (14-36) U/L ALT 17 (0-35) U/L Alkaline Phosphatase 55 (38-126) U/L Serum Total Protein 7.1 (6.3-8.2) g/dL Albumin 4.2 (3.5-5.0) g/dL Amylase 76 (30-110) U/L Lipase 107 (23-300) U/L Urinalys Dipstick Clnc MAIN LAB Urine Color Cancelled Urine Appearance Cancelled Urine pH Cancelled Ur Specific [place] Cancelled Urine Protein Cancelled POC Urine Protein Conf NEGATIVE (Negative) Urine Ketones Cancelled Urine Blood Cancelled Urine Nitrite Cancelled Urine Bilirubin Cancelled Urine Urobilinogen Cancelled Ur Leukocyte Esterase Cancelled Urine Leukocytes NEGATIVE (NEGATIVE) Urine WBC (Auto) NONE (0-5) /HPF Urine RBC (Auto) NONE (0-2) /HPF U Epithel Cells (Auto) NONE (FEW) /HPF Urine Bacteria (Auto) NONE (NEGATIVE) /HPF Urine RBC NEGATIVE (0-5) Cornelius/ul U Non-Squamous Epi Cells Cancelled Urine Mucus (Auto) SLIGHT (NEGATIVE) /HPF Ur Culture Indicated? NO Urine Culture Reflexed Cancelled Urine Glucose NEGATIVE (NEGATIVE) mg/dL 09/09/21 Range/Units 11:33 WBC (4.0-10.5) K/mm3 RBC (4.1-5.4) M/mm3 Hgb (12.0-16.0) gm/dl Hct (35-47) % MCV (78-100) fl MCH (26-32) pg MCHC (32-36) g/dl RDW (11.5-14.0) % Plt Count (150-450) K/mm3 MPV (7.5-11.0) fl Gran % (36.0-66.0) % Eos # (Auto) (0-0.5) Absolute Lymphs (auto) (1.0-4.6) Absolute Monos (auto) (0.0-1.3) Lymphocytes % (24.0-44.0) % Monocytes % (0.0-12.0) % Eosinophils % (0.00-5.0) % Basophils % (0.0-0.4) % Absolute Granulocytes (1.4-6.9) Basophils # (0-0.4) Sodium (137-145) mmol/L Potassium (3.5-5.1) mmol/L Chloride (98-107) mmol/L Carbon Dioxide (22-30) mmol/L Anion Gap (5-15) MEQ/L BUN (7-17) mg/dL Creatinine (0.52-1.04) mg/dL Estimated GFR ML/MIN Glucose (74-106) mg/dL Lactic Acid 1.0 (0.4-2.0) Calcium (8.4-10.2) mg/dL Total Bilirubin (0.2-1.3) mg/dL AST (14-36) U/L ALT (0-35) U/L Alkaline Phosphatase (38-126) U/L Serum Total Protein (6.3-8.2) g/dL Albumin (3.5-5.0) g/dL Amylase (30-110) U/L Lipase (23-300) U/L Urinalys Dipstick Clnc Urine Color Urine Appearance Urine pH Ur Specific [place] Urine Protein POC Urine Protein Conf (Negative) Urine Ketones Urine Blood Urine Nitrite Urine Bilirubin Urine Urobilinogen Ur Leukocyte Esterase Urine Leukocytes (NEGATIVE) Urine WBC (Auto) (0-5) /HPF Urine RBC (Auto) (0-2) /HPF U Epithel Cells (Auto) (FEW) /HPF Urine Bacteria (Auto) (NEGATIVE) /HPF Urine RBC (0-5) Cornelius/ul U Non-Squamous Epi Cells Urine Mucus (Auto) (NEGATIVE) /HPF Ur Culture Indicated? Urine Culture Reflexed Urine Glucose (NEGATIVE) mg/dL - Progress Progress: improved, re-examined Progress Note: 09/09/21 12:31 CAT scan of the abdomen pelvis without contrast shows mild fecal stasis. The bowels are nonobstructed. There is no evidence of acute appendicitis Counseled pt/family regarding: lab results, diagnosis, need for follow-up, rad results - Departure Departure Disposition: Home Clinical Impression: Chronic abdominal pain Condition: Stable Critical Care Time: No Referrals: VÍCTOR FOFANA [Primary Care Provider] - Follow up/PCP as directed Additional Instructions: Drink plenty of clear liquids. Follow-up with your drafter heating and ventilating and surgeon for further management. Take your medications as prescribed.
[2021-09-09 11:17] VITALS: BP 127/76
[2021-09-09] MEDS ORDERED: Sodium Chloride 0.9% 1000 ML 0 ML ONE (11:19)
[2021-09-09] MEDS ORDERED: Hydromorphone 1 mg/ml Injection IV ONE (11:19)
[2021-09-09] MEDS ORDERED: Zofran 4 MG/2 ML VIAL ONE (11:19)
[2021-09-09] MEDS ORDERED: Hydromorphone 1 mg/ml Injection ONE (11:19)
[2021-09-09] MEDS ORDERED: Sodium Chloride 0.9% 1000 ML 1,000 ML IV STA (11:19)
[2021-09-09] MEDS ORDERED: Zofran 4 MG/2 ML VIAL IV ONE (11:19)
[2021-09-09] MEDS ORDERED: Sodium Chloride 0.9% 1000 ML 1,000 ML ONE (11:28)
[2021-09-09 11:46] LABS: ALBUMIN 4.2 g/dL (3.5-5.0); ALKALINE PHOSPHATASE 55 U/L (38-126); AMYLASE 76 U/L (30-110); ANION GAP 11.3 MEQ/L (5-15); BLOOD UREA NITROGEN 13 mg/dL (7-17); CHLORIDE 105 mmol/L (98-107); Calcium 8.9 mg/dL (8.4-10.2); Carbon Dioxide 25 mmol/L (22-30); Creatinine 1 0.78 mg/dL (0.52-1.04); EST GLOMERULAR FILTRATION RATE > 60.0 ML/MIN; Glucose 111 mg/dL (74-106); LIPASE 107 U/L (23-300); Potassium 4.2 mmol/L (3.5-5.1); SGOT/AST 17 U/L (14-36); SGPT/ALT 17 U/L (0-35); SODIUM 137 mmol/L (137-145); Total Protein 7.1 g/dL (6.3-8.2)
[2021-09-09 11:55] LABS: Absolute Neutrophil Ct (ANC) 4.01 (1.4-6.9); Basophil (Absolute #) 0.04 (0-0.4); Eosinophil % 1.8 % (0.00-5.0); Eosinophil (Absolute #) 0.14 (0-0.5); Hematocrit 42.6 % (35-47); Hemoglobin 14.1 gm/dl (12.0-16.0); Lymphocyte (Absolute #) 2.59 (1.0-4.6); Lymphocytes % 33.7 % (24.0-44.0); Mean Cell Volume 85.5 fl (78-100); Mean Corpuscular Hemoglobin 28.3 pg (26-32); Mean Corpuscular Hgb Concent. 33.1 g/dl (32-36); Mean Platelet Volume 10.6 fl (7.5-11.0); Monocyte (Absolute #) 0.91 (0.0-1.3); Monocytes % 11.8 % (0.0-12.0); Neutrophil % 52.2 % (36.0-66.0); Platelet Count 297 K/mm3 (150-450); Red Blood Count 4.98 M/mm3 (4.1-5.4); Red Cell Distribution Width 13.6 % (11.5-14.0); White Blood Count 7.7 K/mm3 (4.0-10.5)
[2021-09-09 12:03] LABS: Appearance CLEAR (CLEAR); Bilirubin NEGATIVE (NEGATIVE); Dipstick done @ ? MAIN LAB; Glucose NEGATIVE (NEGATIVE); Ketones NEGATIVE (NEGATIVE); Nitrite NEGATIVE (NEGATIVE); Protein,Urine Dip NEGATIVE (Negative); RBC NEGATIVE Ery/ul (0-5); Urobilinogen 0.2 mg/dL (0-1)
[2021-09-09 12:05] LABS: Mucus SLIGHT /HPF (NEGATIVE)
--- NOTE | 2021-09-09 12:08 | XRAY ---
Indication: Right lower quadrant pain for weeks. Multiple contiguous axial images obtained through the abdomen and pelvis without contrast. Comparison: January 13, 2021. Lung bases again demonstrates small right lower lobe calcified granuloma. Minimal bibasilar subsegmental atelectasis/scarring. No infiltrate or effusion. Heart not enlarged again with right infrahilar chunky calcified node. Noncontrasted stomach and bowel loops nonobstructed again with normal air-filled appendix. Again mild diffuse scattered colonic fecal debris, intact sigmoid anastomosis, mild fatty liver, cholecystotomy, and hysterectomy. No free fluid/air. Remaining liver, pancreas, spleen, adrenal glands, kidneys, ureters, and bladder appear unremarkable for noncontrast exam. Minimal aortoiliac calcifications without AAA. Osseous structures intact again with minimal generative changes throughout the spine. No ventral or inguinal hernias. Impression: 1. Again mild diffuse fecal stasis, fatty liver, minimal degenerative spondylosis, and old granulomatous disease. 2. Remaining CT abdomen/pelvis without contrast exam is again negative.
[2021-09-09 12:17] VITALS: PULSE 69; O2SAT 96
== END 2021-09-09 13:39 | disposition home or self-care (01) ==
LOC: ED 10:53
DX: R10.31 Right lower quadrant pain (principal); R10.2 Pelvic and perineal pain; G89.29 Other chronic pain; R11.0 Nausea; I10 Essential (primary) hypertension; E11.9 Type 2 diabetes mellitus without complications; Z79.84 Long term (current) use of oral hypoglycemic drugs; Z79.899 Other long term (current) drug therapy
CPT/HCPCS: 36000; 36415; 74176; 80053; 81015; 82150; 83605; 83690; 85025; 96374; 96375; 99284; J1170; J2405

== ENCOUNTER 2022-06-17 11:30 | Emergency (ER) | payer BC ==
[2022-06-17 12:21] VITALS: O2SAT 97
[2022-06-17] MEDS ORDERED: MORPHINE SULFATE 4 MG INJ IV ONE (13:54)
[2022-06-17] MEDS ORDERED: Sodium Chloride 0.9% 1000 ML 1,000 ML IV STA (13:54)
[2022-06-17] MEDS ORDERED: Zofran 4 MG/2 ML VIAL IV ONE (13:54)
[2022-06-17] MEDS ORDERED: Zofran 4 MG/2 ML VIAL ONE (14:07)
[2022-06-17] MEDS ORDERED: Sodium Chloride 0.9% 1000 ML 1,000 ML ONE (14:07)
[2022-06-17] MEDS ORDERED: MORPHINE SULFATE 4 MG INJ ONE (14:07)
[2022-06-17 14:14] LABS: Absolute Neutrophil Ct (ANC) 5.87 x10^3/uL (1.4-6.9); Basophil (Absolute #) 0.05 x10^3/uL (0-0.4); Eosinophil % 1.2 % (0.00-5.0); Eosinophil (Absolute #) 0.11 x10^3/uL (0-0.5); Hemoglobin 13.9 g/dL (12.0-16.0); Lymphocyte (Absolute #) 2.13 x10^3/uL (1.0-4.6); Mean Cell Volume 86.5 fL (78-100); Mean Corpuscular Hemoglobin 26.7 pg (26-32); Mean Corpuscular Hgb Concent. 30.9 g/dL (32-36); Mean Platelet Volume 10.2 fL (7.5-11.0); Monocyte (Absolute #) 0.69 x10^3/uL (0.0-1.3); Monocytes % 7.8 % (0.0-12.0); Neutrophil % 66.1 % (36.0-66.0); Platelet Count 242 x10^3/uL (150-450); Red Cell Distribution Width 12.3 % (11.5-14.0); White Blood Count 8.9 x10^3/uL (4.0-10.5)
--- NOTE | 2022-06-17 14:38 | XRAY ---
Indication: Right flank pain 2 weeks. Multiple contiguous axial images obtained through the abdomen and pelvis without contrast using renal stone protocol. Comparison: September 09, 2021 Lung bases again demonstrates right infrahilar and right lower lobe calcified granulomas. No infiltrate or effusion. Heart not enlarged. No renal calculus or evidence for obstructive uropathy in either system. Noncontrasted stomach and bowel loops appear nonobstructed again with normal air-filled appendix. Again mild diffuse scattered colonic fecal debris throughout and intact sigmoid anastomosis. Stable fatty liver, cholecystectomy, and hysterectomy. No free fluid/air. Remaining liver, pancreas, spleen, adrenal glands, kidneys, ureters, and bladder are unremarkable for noncontrast exam. Stable minimal aortoiliac calcifications without AAA. Osseous structures intact again with minimal degenerative changes throughout the thoracolumbar spine. No ventral or inguinal hernias. Impression: 1. Continued negative for renal calculus or evidence for obstructive uropathy. 2. Again mild diffuse fecal stasis, fatty liver, degenerative spondylosis, and old granulomatous disease. 3. Remaining CT abdomen/pelvis without contrast exam is again negative.
[2022-06-17 14:43] LABS: ALBUMIN 4.2 g/dL (3.5-5.0); ALKALINE PHOSPHATASE 87 U/L (38-126); BLOOD UREA NITROGEN 12 mg/dL (7-17); CHLORIDE 103 mmol/L (98-107); Calcium 9.2 mg/dL (8.4-10.2); Carbon Dioxide 28 mmol/L (22-30); Creatinine 1 0.58 mg/dL (0.52-1.04); EST GLOMERULAR FILTRATION RATE > 60.0 ML/MIN; Glucose 142 mg/dL (74-106); Potassium 4.5 mmol/L (3.5-5.1); SGOT/AST 23 U/L (14-36); SGPT/ALT 25 U/L (0-35); SODIUM 135 mmol/L (137-145); Total Protein 7.5 g/dL (6.3-8.2)
[2022-06-17 16:01] LABS: Appearance TURBID (CLEAR); Bilirubin NEGATIVE (NEGATIVE); Glucose 250 mg/dL (NEGATIVE); Ketones NEGATIVE (NEGATIVE)
[2022-06-17 16:02] LABS: Dipstick done @ ? MAIN LAB; Nitrite NEGATIVE (NEGATIVE); Protein,Urine Dip TRACE (Negative); RBC NEGATIVE Ery/ul (0-5); Specific Gravity >=1.030 (1.005-1.025); Urobilinogen 0.2 mg/dL (0-1)
[2022-06-17 16:09] LABS: Mucus MODERATE /HPF (NEGATIVE)
[2022-06-17 16:10] VITALS: BP 140/80; PULSE 68
[2022-06-17 16:11] LABS: Amourphous Crystal MANY /HPF (NEGATIVE); Bacteria NONE SEEN /HPF (NEGATIVE); RBC NONE SEEN /HPF (0-2); WBC NONE SEEN /HPF (0-5)
--- NOTE | 2022-06-17 16:14 | ERPHSYRPT ---
- History of Present Illness Historian: patient Exam Limitations: no limitations Patient Subjective Stated Complaint: C/O right flank pain for approx 2 weeks. Pain indicates that she has constant pain in her right lower abdomen and intermittent pain in her right lower back. Triage Nursing Assessment: Patient ambulated back to ED. She is alert and oriented. No SOB noted. Skin tone normal. Patient is gaurding her right lower abdomen. Physician History: 47yo F presents to the ER c/o abdominal pain x 2 weeks. Location: R flank to groin. Constant. Described as: sharp. Not associated to meals. Endorses nausea and constipation but denies fever, chills, vomiting, dysuria, hematuria, hematochezia, vaginal discharge or vaginal bleeding. Hx of colon resection 3 years ago Timing/Duration: week(s) (2) Activities at Onset: rest Quality: sharpness, stabbing Abdominal Pain Onset Location: flank Pain Radiation: groin Severity of Pain-Max: severe Severity of Pain-Current: severe Modifying Factors: Improves With: analgesics. Worsens With: movement, palpation, walking Associated Symptoms: loss of appetite, nausea, No chest pain, No diaphoresis, No diarrhea, No fever/chills, No vomiting Previous symptoms: no prior history Allergies/Adverse Reactions: amoxicillin Allergy (Verified 06/17/22 12:07) Penicillins Allergy (Verified 06/17/22 12:07) Sulfa (Sulfonamide Antibiotics) [Sulfa(Sulfonamide Antibiotics)] Allergy (Verified 06/17/22 12:07) Home Medications: Venlafaxine HCl [Effexor] 37.5 mg PO BID 12/17/14 [History] clonazePAM [Klonopin] 0.5 mg PO DAILY PRN PRN 12/17/14 [History] estradioL [Estradiol] 1 mg PO DAILY 01/18/19 [History] lisinopriL [Lisinopril] 2.5 mg PO BID 01/13/21 [History] Hx Tetanus, Diphtheria Vaccination/Date Given: Yes Hx Influenza Vaccination/Date Given: No Hx Pneumococcal Vaccination/Date Given: No Immunizations Up to Date: Yes Travel Risk - International Travel Have you traveled outside of the country in past 3 weeks: No - Coronavirus Screening Are you exhibiting any of the following symptoms?: No Close contact with a COVID-19 positive Pt in past 14-21 Days: No - Vaccine Status Have you recieved a Covid-19 vaccination: No - Review of Systems Constitutional: No Symptoms Eyes: No Symptoms Ears, Nose, & Throat: No Symptoms Respiratory: No Symptoms Cardiac: No Symptoms Abdominal/Gastrointestinal: Abdominal Pain, Nausea, Constipation, Appetite Changes, No Vomiting, No Diarrhea, No Hematemesis, No Hematochezia, No Melena, No Dysphagia Genitourinary Symptoms: Flank Pain, No Dysuria, No Frequency, No Hematuria, No Urgency, No Vaginal Bleeding, No Vaginal Discharge, No Vaginal Itching Musculoskeletal: No Symptoms Skin: No Symptoms Neurological: No Symptoms Psychological: No Symptoms Endocrine: No Symptoms Hematologic/Lymphatic: No Symptoms Immunological/Allergic: No Symptoms All Other Systems: Reviewed and Negative - Past Medical History Pertinent Past Medical History: Yes Neurological History: No Pertinent History ENT History: No Pertinent History Cardiac History: High Cholesterol, Hypertension Respiratory History: No Pertinent History Endocrine Medical History: Diabetes Type II Musculoskeletal History: No Pertinent History, Other GI Medical History: Diverticulitis, Diverticulosis, Gallbladder Disease History: No Pertinent History Psycho-Social History: Anxiety, Depression Female Reproductive Disorders: Endometriosis, Other Other Medical History: mononucleosis - Past Surgical History Past Surgical History: Yes Neuro Surgical History: No Pertinent History Cardiac: No Pertinent History Respiratory: No Pertinent History Gastrointestinal: Bowel Surgery, Cholecystectomy Genitourinary: No Pertinent History Musculoskeletal: No Pertinent History Female Surgical History: Hysterectomy Other Surgical History: bowel resection on 04/06/18, right achilles surgery - Social History Smoking Status: Former smoker Exposure to second hand smoke: No Drug Use: none Patient Lives Alone: No Significant Family History: no pertinent family hx - Female History Hx Last Menstrual Period: Doesn't have them anymore Hx Now: No - Nursing Vital Signs Nursing Vital Signs: Initial Vital Signs Temperature 97.7 F 06/17/22 12:08 Pulse Rate 85 06/17/22 12:08 Respiratory Rate 18 06/17/22 12:08 Blood Pressure 143/89 06/17/22 12:08 O2 Sat by Pulse Oximetry 97 06/17/22 12:08 Pain Scale Pain Intensity 4 - Physical Exam General Appearance: mild distress Eye Exam: PERRL/EOMI Ears, Nose, Throat Exam: normal ENT inspection Neck Exam: normal inspection Respiratory Exam: normal breath sounds Cardiovascular Exam: regular rate/rhythm, normal heart sounds Gastrointestinal/Abdomen Exam: soft, normal bowel sounds, tenderness, No distention, No mass, No guarding, No ecchymosis, No rebound, No hernia Pelvic Exam: not done Back Exam: CVA tenderness (Right) Extremity Exam: normal inspection Neurologic Exam: alert, oriented x 3, cooperative Skin Exam: normal color, warm, dry, pale SpO2 Interpretation: normal SpO2: 97 O2 Delivery: Room Air - Course Nursing assessment & vital signs reviewed: Yes - CT Exams Abdomen CT Interpretation: Other (No kidney stone, no appendicitis, no diverticulitis, diffuse stool burden) Ordered Tests: Medication Summary Discontinued Medications Generic Name Dose Route Start Last Admin Trade Name Freq PRN Reason Stop Dose Admin Sodium Chloride 1,000 mls @ 999 mls/hr 06/17/22 13:54 06/17/22 15:24 Sodium Chloride 0.9% 1000 Ml IV 06/17/22 14:54 Infused .Q1H1M STA Infusion Sodium Chloride Confirm 06/17/22 14:07 Sodium Chloride 0.9% 1000 Ml Administered 06/17/22 14:08 Dose 1,000 mls @ ud .ROUTE .STK-MED ONE Morphine Sulfate 4 mg 06/17/22 13:54 06/17/22 14:10 Morphine Sulfate 4 Mg/Ml Injection IV 06/17/22 13:55 4 mg STAT ONE Administration Morphine Sulfate Confirm 06/17/22 14:07 Morphine Sulfate 4 Mg/Ml Injection Administered 06/17/22 14:08 Dose 4 mg .ROUTE .STK-MED ONE Ondansetron HCl 4 mg 06/17/22 13:54 06/17/22 14:10 Ondansetron Hcl 4 Mg/2 Ml Vial IV 06/17/22 13:55 4 mg STAT ONE Administration Ondansetron HCl Confirm 06/17/22 14:07 Ondansetron Hcl 4 Mg/2 Ml Vial Administered 06/17/22 14:08 Dose 4 mg .ROUTE .STK-MED ONE Lab/Rad Data: Laboratory Result Diagrams 06/17/22 14:15 06/17/22 14:15 Laboratory Results 06/17/22 06/17/22 06/17/22 Range/Units 14:23 14:15 14:15 WBC 8.9 (4.0-10.5) x10^3/uL RBC 5.20 (4.1-5.4) x10^6/uL Hgb 13.9 (12.0-16.0) g/dL Hct 45.0 (35-47) % MCV 86.5 (78-100) fL MCH 26.7 (26-32) pg MCHC 30.9 L (32-36) g/dL RDW 12.3 (11.5-14.0) % Plt Count 242 (150-450) x10^3/uL MPV 10.2 (7.5-11.0) fL Gran % 66.1 H (36.0-66.0) % Immature Gran % (Auto) 0.3 (0.00-0.4) % Nucleat RBC Rel Count 0.0 (0.00-0.1) % Eos # (Auto) 0.11 (0-0.5) x10^3/uL Immature Gran # (Auto) 0.03 (0.00-0.03) x10^3u/L Absolute Lymphs (auto) 2.13 (1.0-4.6) x10^3/uL Absolute Monos (auto) 0.69 (0.0-1.3) x10^3/uL Absolute Nucleated RBC 0.00 (0.00-0.01) x10^3u/L Lymphocytes % 24.0 (24.0-44.0) % Monocytes % 7.8 (0.0-12.0) % Eosinophils % 1.2 (0.00-5.0) % Basophils % 0.6 (0.0-0.4) % Absolute Granulocytes 5.87 (1.4-6.9) x10^3/uL Basophils # 0.05 (0-0.4) x10^3/uL Sodium 135 L (137-145) mmol/L Potassium 4.5 (3.5-5.1) mmol/L Chloride 103 (98-107) mmol/L Carbon Dioxide 28 (22-30) mmol/L Anion Gap 9.0 (5-15) MEQ/L BUN 12 (7-17) mg/dL Creatinine 0.58 (0.52-1.04) mg/dL Estimated GFR > 60.0 ML/MIN Glucose 142 H (74-106) mg/dL Lactic Acid 2.5 H (0.4-2.0) Calcium 9.2 (8.4-10.2) mg/dL Total Bilirubin 0.40 (0.2-1.3) mg/dL AST 23 (14-36) U/L ALT 25 (0-35) U/L Alkaline Phosphatase 87 (38-126) U/L Serum Total Protein 7.5 (6.3-8.2) g/dL Albumin 4.2 (3.5-5.0) g/dL Urinalys Dipstick Clnc Urine Color (YELLOW) Urine Appearance (CLEAR) Urine pH (5-6) Ur Specific [place] (1.005-1.025) POC Urine Protein Conf (Negative) Urine Ketones (NEGATIVE) Urine Nitrite (NEGATIVE) Urine Bilirubin (NEGATIVE) Urine Urobilinogen (0-1) mg/dL Urine Leukocytes (NEGATIVE) Urine WBC (Auto) (0-5) /HPF Urine RBC (Auto) (0-2) /HPF U Epithel Cells (Auto) (FEW) /HPF Urine Bacteria (Auto) (NEGATIVE) /HPF Urine RBC (0-5) Cornelius/ul Amorphous Crystals (NEGATIVE) /HPF Urine Mucus (Auto) (NEGATIVE) /HPF Ur Culture Indicated? Urine Glucose (NEGATIVE) mg/dL 06/17/22 Range/Units 12:49 WBC (4.0-10.5) x10^3/uL RBC (4.1-5.4) x10^6/uL Hgb (12.0-16.0) g/dL Hct (35-47) % MCV (78-100) fL MCH (26-32) pg MCHC (32-36) g/dL RDW (11.5-14.0) % Plt Count (150-450) x10^3/uL MPV (7.5-11.0) fL Gran % (36.0-66.0) % Immature Gran % (Auto) (0.00-0.4) % Nucleat RBC Rel Count (0.00-0.1) % Eos # (Auto) (0-0.5) x10^3/uL Immature Gran # (Auto) (0.00-0.03) x10^3u/L Absolute Lymphs (auto) (1.0-4.6) x10^3/uL Absolute Monos (auto) (0.0-1.3) x10^3/uL Absolute Nucleated RBC (0.00-0.01) x10^3u/L Lymphocytes % (24.0-44.0) % Monocytes % (0.0-12.0) % Eosinophils % (0.00-5.0) % Basophils % (0.0-0.4) % Absolute Granulocytes (1.4-6.9) x10^3/uL Basophils # (0-0.4) x10^3/uL Sodium (137-145) mmol/L Potassium (3.5-5.1) mmol/L Chloride (98-107) mmol/L Carbon Dioxide (22-30) mmol/L Anion Gap (5-15) MEQ/L BUN (7-17) mg/dL Creatinine (0.52-1.04) mg/dL Estimated GFR ML/MIN Glucose (74-106) mg/dL Lactic Acid (0.4-2.0) Calcium (8.4-10.2) mg/dL Total Bilirubin (0.2-1.3) mg/dL AST (14-36) U/L ALT (0-35) U/L Alkaline Phosphatase (38-126) U/L Serum Total Protein (6.3-8.2) g/dL Albumin (3.5-5.0) g/dL Urinalys Dipstick Clnc MAIN LAB Urine Color YELLOW (YELLOW) Urine Appearance TURBID (CLEAR) Urine pH 5.0 (5-6) Ur Specific [place] >=1.030 A (1.005-1.025) POC Urine Protein Conf TRACE A (Negative) Urine Ketones NEGATIVE (NEGATIVE) Urine Nitrite NEGATIVE (NEGATIVE) Urine Bilirubin NEGATIVE (NEGATIVE) Urine Urobilinogen 0.2 (0-1) mg/dL Urine Leukocytes NEGATIVE (NEGATIVE) Urine WBC (Auto) NONE SEEN (0-5) /HPF Urine RBC (Auto) NONE SEEN (0-2) /HPF U Epithel Cells (Auto) NONE (FEW) /HPF Urine Bacteria (Auto) NONE SEEN (NEGATIVE) /HPF Urine RBC NEGATIVE (0-5) Cornelius/ul Amorphous Crystals MANY A (NEGATIVE) /HPF Urine Mucus (Auto) MODERATE A (NEGATIVE) /HPF Ur Culture Indicated? NO Urine Glucose 250 A (NEGATIVE) mg/dL - Progress Progress: improved Progress Note: Pain improved with analgesia. CT abdomen showed no obstruction, no stones, no diverticulitis, but did show diffuse stool burden in the colon consistent with constipation. Patient has been taking narcotic since her Achilles surgery and has had difficulty with constipation since that time. Patient is trying to off of the narcotics for this very reason she has not tried anything [id number] for constipation issues. Discussed taking 2 capsules of MiraLax daily until stools become regular. If her symptoms continue after she is having regular bowel movements or the pain increases in severity or patient develops fevers advised the patient to return to the emergency room immediately. 06/19/22 17:12 06/19/22 17:13 Counseled pt/family regarding: lab results, diagnosis, rad results - Departure Departure Disposition: Home Clinical Impression: Abdominal pain Qualifiers: Abdominal location: generalized Qualified Code(s): R10.84 - Generalized abdominal pain Constipation Qualifiers: Constipation type: slow transit constipation Qualified Code(s): K59.01 - Slow transit constipation Condition: Stable Critical Care Time: No Referrals: VÍCTOR FOFANA [Primary Care Provider] - Follow up/PCP as directed Instructions: Constipation in Adults Prescriptions: Polyethylene Glycol 3350 [Miralax] 17 gm PO BID 7 Days #7 pkt
[2022-06-17 16:39] LABS: Urine Cultured Indicated? NO
== END 2022-06-17 16:23 | disposition home or self-care (01) ==
LOC: ED 11:30
DX: K59.01 Slow transit constipation (principal); R10.84 Generalized abdominal pain; E78.5 Hyperlipidemia, unspecified; I10 Essential (primary) hypertension; E11.9 Type 2 diabetes mellitus without complications; Z79.899 Other long term (current) drug therapy; Z28.310 Unvaccinated for COVID-19
CPT/HCPCS: 36000; 36415; 74176; 80053; 81015; 83605; 85025; 96360; 96374; 96375; 99284; J2270; J2405

== ENCOUNTER 2024-03-28 18:47 | Emergency (ER) | payer BC ==
[2024-03-28 19:06] VITALS: TEMP 98.4
--- NOTE | 2024-03-28 19:20 | ERPHSYRPT ---
- History of Present Illness Time Seen by Provider: 03/28/24 19:15 Source: patient Exam Limitations: no limitations Patient Subjective Stated Complaint: Pt reports she woke up wednesday morning with chest congestion, headache, weakness and severe fatigue. Pt states fatigue co ntinues to worsen, states this is how she felt when she had covid. Reports diarrheal stool x1 today. Triage Nursing Assessment: Pt alert and oriented x3. Respirations easy/non labored. Skin w/p/d. Ambulated to ED cot without difficulty. Physician History: 49-year-old female history of diabetes presents to our ED for evaluation of generalized weakness sore throat frontal headache that have been ongoing for approximately 2 days. 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 Patient also reports that she was possibly exposed to contaminated dust from vent at school. No fever. No nausea vomiting or diaphoresis. No active abdominal pain. Patient symptoms are mild to moderate in intensity. No specific worsening improving factors. Patient has observed that she sounds somewhat more hoarse than normal. Patient reports "I am coming down with something". Portions of this note were created with voice recognition technology. There may be grammatical, spelling, punctuation or sound alike errors Timing/Duration: today Severity: moderate Modifying Factors: Improves With: nothing Allergies/Adverse Reactions: amoxicillin Allergy (Verified 03/28/24 19:00) Penicillins Allergy (Verified 03/28/24 19:00) Sulfa (Sulfonamide Antibiotics) [Sulfa(Sulfonamide Antibiotics)] Allergy (Verified 03/28/24 19:00) Home Medications: RX: Venlafaxine HCl [Effexor] 37.5 mg PO BID 12/17/14 [History] RX: clonazePAM [Klonopin] 0.5 mg PO DAILY PRN PRN 12/17/14 [History] estradioL [Estradiol] 1 mg PO DAILY 01/18/19 [History] lisinopriL [Lisinopril] 2.5 mg PO BID 01/13/21 [History] RX: Albuterol 8 gm Mdi Hfa [Ventolin Hfa MDI] 2 puff IH Q4HPRN PRN 03/28/24 [History] Tirzepatide [Mounjaro] See Rx Instructions .ROUTE .COMPLEX 03/28/24 [History] Hx Tetanus, Diphtheria Vaccination/Date Given: Yes Hx Influenza Vaccination/Date Given: No Hx Pneumococcal Vaccination/Date Given: No Travel Risk - International Travel Have you traveled outside of the country in past 3 weeks: No - Emerging Infectious Disease Are you exhibiting symptoms associated with any current EIDs: Yes Symptoms: Headaches/Body Aches/, Other (Please Comment) Comment: weakness, fatigue - Review of Systems Constitutional: No Symptoms, No Fever, No Chills Eyes: No Symptoms Ears, Nose, & Throat: No Symptoms Respiratory: No Symptoms, No Cough, No Dyspnea Cardiac: No Symptoms, No Chest Pain, No Edema, No Syncope Abdominal/Gastrointestinal: No Symptoms, No Abdominal Pain, No Nausea, No Vomiting, No Diarrhea Genitourinary Symptoms: No Symptoms, No Dysuria Musculoskeletal: No Symptoms, No Back Pain, No Neck Pain Skin: No Symptoms, No Rash Neurological: No Symptoms, No Dizziness, No Focal Weakness, No Sensory Changes Psychological: No Symptoms Endocrine: No Symptoms Hematologic/Lymphatic: No Symptoms Immunological/Allergic: No Symptoms All Other Systems: Reviewed and Negative - Past Medical History Pertinent Past Medical History: Yes Neurological History: No Pertinent History ENT History: No Pertinent History Cardiac History: High Cholesterol, Hypertension Respiratory History: Asthma Endocrine Medical History: Diabetes Type II Musculoskeletal History: No Pertinent History, Other GI Medical History: Diverticulitis, Diverticulosis, Gallbladder Disease History: No Pertinent History Psycho-Social History: Anxiety, Depression Female Reproductive Disorders: Endometriosis, Other Other Medical History: mononucleosis - Past Surgical History Past Surgical History: Yes Neuro Surgical History: No Pertinent History Cardiac: No Pertinent History Respiratory: No Pertinent History Gastrointestinal: Bowel Surgery, Cholecystectomy Genitourinary: No Pertinent History Musculoskeletal: No Pertinent History Female Surgical History: Hysterectomy Other Surgical History: bowel resection on 04/06/18, right achilles surgery Significant Family History: no pertinent family hx - Female History Hx Last Menstrual Period: HYST Hx Now: No - Social History Smoking Status: Former smoker Exposure to second hand smoke: No Drug Use: none Patient Lives Alone: No - Social Determinants of Health Will the patient participate in the screening: Declined to provide - Nursing Vital Signs Nursing Vital Signs: Initial Vital Signs Temperature 98.4 F 03/28/24 18:55 Pulse Rate 107 H 03/28/24 18:55 Respiratory Rate 16 03/28/24 18:55 Blood Pressure 193/111 03/28/24 18:55 O2 Sat by Pulse Oximetry 98 03/28/24 18:55 Pain Scale Pain Intensity 10 - Physical Exam General Appearance: no apparent distress, alert Eye Exam: PERRL/EOMI, eyes nml inspection Ears, Nose, Throat Exam: normal ENT inspection, pharynx normal, moist mucous membranes Neck Exam: normal inspection, non-tender, supple, full range of motion Respiratory Exam: normal breath sounds, lungs clear, airway intact, No respiratory distress Cardiovascular Exam: regular rate/rhythm, normal heart sounds, normal peripheral pulses Gastrointestinal/Abdomen Exam: soft, normal bowel sounds, No tenderness, No mass Back Exam: normal inspection, normal range of motion, No CVA tenderness, No vertebral tenderness Extremity Exam: normal inspection, normal range of motion, pelvis stable Neurologic Exam: alert, oriented x 3, cooperative, normal mood/affect, sensation nml, No motor deficits Skin Exam: normal color, warm, dry, No rash Lymphatic Exam: No adenopathy SpO2 Interpretation: normal SpO2: 98 O2 Delivery: Room Air - Course Nursing assessment & vital signs reviewed: Yes - Radiology Exams Chest X-ray Interpretation: Interpreted by me (No acute findings) Ordered Tests: Active Orders 24 hr Category Date Time Status IV Insertion STAT Care 03/28/24 19:19 Active CHEST 1 VIEW (PORTABLE) Stat Exams 03/28/24 19:19 Taken CBC W DIFF Stat Lab 03/28/24 19:35 Completed CMP Stat Lab 03/28/24 19:35 Completed MONO SCREEN Stat Lab 03/28/24 19:35 Completed UA W/RFX UR CULTURE Stat Lab 03/28/24 20:52 Completed Medication Summary Discontinued Medications Generic Name Dose Route Start Last Admin Trade Name Stevenson PRN Reason Stop Dose Admin Sodium Chloride 1,000 mls @ 999 mls/hr 03/28/24 19:19 03/28/24 20:59 Sodium Chloride 0.9% 1000 Ml IV 03/28/24 20:19 Infused .Q1H1M STA Infusion Sodium Chloride Confirm 03/28/24 19:40 Sodium Chloride 0.9% 1000 Ml Administered 03/28/24 19:41 Dose 1,000 mls @ ud .ROUTE .STK-MED ONE Ketorolac Tromethamine 60 mg 03/28/24 21:10 03/28/24 21:14 Ketorolac Tromethamine 30 Mg/Ml Inj IM 03/28/24 21:11 60 mg STAT ONE Administration Ketorolac Tromethamine Confirm 03/28/24 21:13 Ketorolac Tromethamine 30 Mg/Ml Inj Administered 03/28/24 21:14 Dose 60 mg .ROUTE .STK-MED ONE Lab/Rad Data: Laboratory Result Diagrams 03/28/24 19:35 03/28/24 19:35 Laboratory Results 03/28/24 03/28/24 03/28/24 Range/Units 20:52 19:35 19:35 WBC 15.7 H (3.98-10.04) x10^3/uL RBC 5.19 (3.93-5.22) x10^6/uL Hgb 14.4 (11.2-15.7) g/dL Hct 44.0 (34.1-44.9) % MCV 84.8 (79.4-94.8) fL MCH 27.7 (25.6-32.2) pg MCHC 32.7 (32.2-35.5) g/dL RDW 12.6 (11.7-14.4) % Plt Count 341 (182-369) x10^3/uL MPV 10.2 (9.4-12.3) fL Gran % 86.1 H (34.0-71.1) % Immature Gran % (Auto) 0.4 (0.001-0.429) % Nucleat RBC Rel Count 0.0 (0.00-0.2) % Eos # (Auto) 0 L (0.04-0.36) x10^3/uL Immature Gran # (Auto) 0.07 H (0.001-0.031) x10^3u/L Absolute Lymphs (auto) 1.29 (1.18-3.74) x10^3/uL Absolute Monos (auto) 0.82 (0.24-0.86) x10^3/uL Absolute Nucleated RBC 0.00 (0.00-0.012) x10^3u/L Lymphocytes % 8.2 L (19.3-51.7) % Monocytes % 5.2 (4.7-12.5) % Eosinophils % 0.0 L (0.7-5.8) % Basophils % 0.1 (0.1-1.2) % Absolute Granulocytes 13.52 H (1.56-6.13) x10^3/uL Basophils # 0.02 (0.01-0.08) x10^3/uL Sodium 142 (135-145) mmol/L Potassium 4.2 (3.5-5.1) mmol/L Chloride 105 (98-107) mmol/L Carbon Dioxide 26 (22-30) mmol/L Anion Gap 14.9 (5-15) MEQ/L BUN 15 (7-17) mg/dL Creatinine 1.04 (0.52-1.04) mg/dL Estimated GFR 65.1 ML/MIN Glucose 152 H (74-106) mg/dL Calcium 10.4 H (8.4-10.2) mg/dL Total Bilirubin 0.30 (0.2-1.3) mg/dL AST 25 (14-36) U/L ALT 29 (0-35) U/L Alkaline Phosphatase 72 (38-126) U/L Serum Total Protein 7.9 (6.3-8.2) g/dL Albumin 4.5 (3.5-5.0) g/dL Urine Color Yellow (Yellow) Urine Appearance Clear (Clear) Urine pH 5.5 (4.6-8.0) Ur Specific [place] 1.025 (1.005-1.030) Urine Protein Negative (Negative) Urine Glucose (UA) >=1000 A (Negative) mg/dL Urine Ketones Trace A (Negative) Urine Blood Negative (Negative) Urine Nitrite Negative (Negative) Urine Bilirubin Negative (Negative) Urine Urobilinogen 0.2 (0.2) mg/dL Ur Leukocyte Esterase Negative (Negative) U Hyaline Cast (Auto) 3-5 A (0-2) /LPF Urine Microscopic RBC 0-2 (0-5) /HPF Urine Microscopic WBC 0-2 (0-5) /HPF Ur Epithelial Cells None Seen (None Seen) /HPF Urine Bacteria Rare A (None Seen) /HPF Urine Culture Reflexed NO (NO) Monoscreen (NEGATIVE) Influenza Type A Ag (NEGATIVE) Influenza Type B Ag (NEGATIVE) RSV (PCR) (NEGATIVE) SARS-CoV-2 (PCR) (NEGATIVE) Group A Strep Antibody (NEGATIVE) 03/28/24 03/28/24 03/28/24 Range/Units 19:35 19:35 19:35 WBC (3.98-10.04) x10^3/uL RBC (3.93-5.22) x10^6/uL Hgb (11.2-15.7) g/dL Hct (34.1-44.9) % MCV (79.4-94.8) fL MCH (25.6-32.2) pg MCHC (32.2-35.5) g/dL RDW (11.7-14.4) % Plt Count (182-369) x10^3/uL MPV (9.4-12.3) fL Gran % (34.0-71.1) % Immature Gran % (Auto) (0.001-0.429) % Nucleat RBC Rel Count (0.00-0.2) % Eos # (Auto) (0.04-0.36) x10^3/uL Immature Gran # (Auto) (0.001-0.031) x10^3u/L Absolute Lymphs (auto) (1.18-3.74) x10^3/uL Absolute Monos (auto) (0.24-0.86) x10^3/uL Absolute Nucleated RBC (0.00-0.012) x10^3u/L Lymphocytes % (19.3-51.7) % Monocytes % (4.7-12.5) % Eosinophils % (0.7-5.8) % Basophils % (0.1-1.2) % Absolute Granulocytes (1.56-6.13) x10^3/uL Basophils # (0.01-0.08) x10^3/uL Sodium (135-145) mmol/L Potassium (3.5-5.1) mmol/L Chloride (98-107) mmol/L Carbon Dioxide (22-30) mmol/L Anion Gap (5-15) MEQ/L BUN (7-17) mg/dL Creatinine (0.52-1.04) mg/dL Estimated GFR ML/MIN Glucose (74-106) mg/dL Calcium (8.4-10.2) mg/dL Total Bilirubin (0.2-1.3) mg/dL AST (14-36) U/L ALT (0-35) U/L Alkaline Phosphatase (38-126) U/L Serum Total Protein (6.3-8.2) g/dL Albumin (3.5-5.0) g/dL Urine Color (Yellow) Urine Appearance (Clear) Urine pH (4.6-8.0) Ur Specific [place] (1.005-1.030) Urine Protein (Negative) Urine Glucose (UA) (Negative) mg/dL Urine Ketones (Negative) Urine Blood (Negative) Urine Nitrite (Negative) Urine Bilirubin (Negative) Urine Urobilinogen (0.2) mg/dL Ur Leukocyte Esterase (Negative) U Hyaline Cast (Auto) (0-2) /LPF Urine Microscopic RBC (0-5) /HPF Urine Microscopic WBC (0-5) /HPF Ur Epithelial Cells (None Seen) /HPF Urine Bacteria (None Seen) /HPF Urine Culture Reflexed (NO) Monoscreen POSITIVE A (NEGATIVE) Influenza Type A Ag NEGATIVE (NEGATIVE) Influenza Type B Ag NEGATIVE (NEGATIVE) RSV (PCR) NEGATIVE (NEGATIVE) SARS-CoV-2 (PCR) NEGATIVE (NEGATIVE) Group A Strep Antibody NOT DETECTED (NEGATIVE) - Progress Progress: improved Progress Note: 49-year-old female presents to emergency department for evaluation of generalized weakness sore throat frontal headache. Physical exam otherwise u nremarkable. Laboratory workup reveals mononucleosis. Slight leukocytosis observed on lab work. Patient otherwise afebrile no obvious sources of infection otherwise. UA negative for UTI. Chest x-ray negative for pneumonia. Vital stable. Patient feels better and states she is ready for discharge. She agrees to follow-up with her primary care doctor within 48 hours for reevaluation. School note provided. Portions of this note were created with voice recognition technology. There may be grammatical, spelling, punctuation or sound alike errors Complexity of problem addressed is moderate acute complicated. No critical care time. Complex of data reviewed and analyzed is moderate. Test ordered chest reviewed results analyzed and correlated clinically with history and physical ex am. Risk of complication and or risk of morbidity/mortality of patient management is low. Vital stable. Time spent to discharge patient approximately 15 minutes. Plan of care established for shared decision making. No social determinants of health present to impede follow-up. Portions of this note were created with voice recognition technology. There may be grammatical, spelling, punctuation or sound alike errors 03/28/24 21:36 Counseled pt/family regarding: lab results, diagnosis, need for follow-up, rad results - Departure Departure Disposition: Home Clinical Impression: Mononucleosis, Leukocytosis Condition: Stable Critical Care Time: No Referrals: THOMAS ARAGON MD [Primary Care Provider] - Follow up/PCP as directed Instructions: Mononucleosis Additional Instructions: Discharge/Care Plan BRENDAN FOSS was seen on 03/28/24 in the Emergency Room. The patient was counseled regarding Diagnosis,Lab results, Imaging studies, need for follow up and when to return to the Emergency Room. Prescriptions given: Discharge Note I have spoken with the patient and/or caregivers. I have explained the patient's condition, diagnosis and treatment plan based on the information available to me at this time. I have answered the patient's and/or caregiver's questions and addressed any concerns. The patient and/or caregivers have as good understanding of the patient's diagnosis, condition and treatment plan as can be expected at t his point. The vital signs have been stable. The patient's condition is stable and appropriate for discharge from the emergency department. The patient will pursue further outpatient evaluation with the primary care physician or other designated or consulting physician as outlined in the discharge instructions. The patient and/or caregivers are agreeable to this plan of care and follow-up instructions have been explained in detail. The patient and/or caregivers have received these instruction. The patient/and or caregivers are aware that any significant change in condition or worsening of symptoms should prompt an immediate return to this or the closest emergency department or call 911. Forms: Work/School Release Form
[2024-03-28 19:38] LABS: Absolute Neutrophil Ct (ANC) 13.52 x10^3/uL (1.56-6.13); BASOPHIL % 0.1 % (0.1-1.2); Basophil (Absolute #) 0.02 x10^3/uL (0.01-0.08); Eosinophil (Absolute #) 0 x10^3/uL (0.04-0.36); Hemoglobin 14.4 g/dL (11.2-15.7); IMMATURE GRAN # 0.07 x10^3u/L (0.001-0.031); IMMATURE GRAN % 0.4 % (0.001-0.429); Lymphocyte (Absolute #) 1.29 x10^3/uL (1.18-3.74); Lymphocytes % 8.2 % (19.3-51.7); Mean Cell Volume 84.8 fL (79.4-94.8); Mean Corpuscular Hemoglobin 27.7 pg (25.6-32.2); Mean Corpuscular Hgb Concent. 32.7 g/dL (32.2-35.5); Mean Platelet Volume 10.2 fL (9.4-12.3); Monocyte (Absolute #) 0.82 x10^3/uL (0.24-0.86); Monocytes % 5.2 % (4.7-12.5); Neutrophil % 86.1 % (34.0-71.1); Platelet Count 341 x10^3/uL (182-369); Red Blood Count 5.19 x10^6/uL (3.93-5.22); Red Cell Distribution Width 12.6 % (11.7-14.4); White Blood Count 15.7 x10^3/uL (3.98-10.04)
[2024-03-28] MEDS ORDERED: Sodium Chloride 0.9% 1000 ML 1,000 ML ONE (19:40)
[2024-03-28] MEDS: Sodium Chloride 0.9% 1000 ML 1,000 ML IV STA (19:43)
[2024-03-28 19:53] LABS: ALBUMIN 4.5 g/dL (3.5-5.0); ANION GAP 14.9 MEQ/L (5-15); BILIRUBIN,TOTAL 0.3 mg/dL (0.2-1.3); Calcium 10.4 mg/dL (8.4-10.2); Creatinine 1 1.04 mg/dL (0.52-1.04); EST GLOMERULAR FILTRATION RATE 65.1 ML/MIN; Potassium 4.2 mmol/L (3.5-5.1); Total Protein 7.9 g/dL (6.3-8.2)
[2024-03-28 20:23] LABS: INFLUENZA A NEGATIVE (NEGATIVE); INFLUENZA B NEGATIVE (NEGATIVE); RESPIRATORY SYNCTIAL VIRUS NEGATIVE (NEGATIVE); SARS-CoV-2 Xpert Express NEGATIVE (NEGATIVE)
[2024-03-28 21:00] LABS: Appearance Clear (Clear); Bacteria Rare /HPF (None Seen); Bilirubin Negative (Negative); Blood Negative (Negative); Epithelial Cells None Seen /HPF (None Seen); Glucose, Urine >=1000 mg/dL (Negative); Ketones Trace (Negative); Leukocyte Esterase Negative (Negative); Nitrite Negative (Negative); Ph 5.5 (4.6-8.0); Protein,Urine Dip Negative (Negative); RBC 0-2 /HPF (0-5); Specific Gravity 1.025 (1.005-1.030); Urobilinogen 0.2 mg/dL (0.2); WBC 0-2 /HPF (0-5)
[2024-03-28] MEDS ORDERED: TORAdol 30 mg Injection ONE (21:13)
[2024-03-28] MEDS: TORAdol 30 mg Injection IM ONE (21:14)
[2024-03-28 21:47] VITALS: BP 153/74; PULSE 84; RESP 16; O2SAT 97
--- NOTE | 2024-03-29 08:56 | XRAY ---
Indication: Cough. Comparison: March 06, 2024 Portable chest again demonstrates normal heart and lungs with incidental mediastinal/hilar/right lung calcified granulomas. Bony thorax intact. No new/acute findings.
== END 2024-03-28 21:45 | disposition home or self-care (01) ==
LOC: ED 18:47
DX: B27.90 Infectious mononucleosis, unspecified without complication (principal); D72.829 Elevated white blood cell count, unspecified; R53.1 Weakness; J02.9 Acute pharyngitis, unspecified; R51.9 Headache, unspecified; E78.5 Hyperlipidemia, unspecified; I10 Essential (primary) hypertension; E11.9 Type 2 diabetes mellitus without complications; Z79.85 Long-term (current) use of injectable non-insulin antidiabetic drugs; Z79.899 Other long term (current) drug therapy
CPT/HCPCS: 0241U; 36000; 71045; 80053; 81001; 85025; 86308; 87651; 96360; 96372; 99284; 36415; J1885

== ENCOUNTER 2024-07-28 03:13 | Observation (INO) | payer BC ==
--- NOTE | 2024-07-28 03:31 | ERPHSYRPT ---
<CHELO MAC MateoAric - Last Filed: 07/28/24 07:47> - History of Present Illness Source: patient, family Exam Limitations: no limitations Patient Subjective Stated Complaint: pt states that when she moves her head she gets dizzy. pt states that she had vertigo about 15 years ago and feels the same Triage Nursing Assessment: pt ambulated into the er with assist of ; pt is axo x4; c/o dizziness; pt denies pain; pt states that the room is spinning; skin PDW; no respiratory distress present; c/o nausea, denies vomiting; vitals wnl Hx Tetanus, Diphtheria Vaccination/Date Given: Yes Hx Influenza Vaccination/Date Given: No Hx Pneumococcal Vaccination/Date Given: No <RJ CHAVIRA - Last Filed: 07/29/24 12:27> - History of Present Illness Time Seen by Provider: 07/28/24 03:28 Physician History: 49-year-old female presented in the ER with dizziness sudden onset when she woke up around midnight. Patient reports feeling room spinning sensation with movements of head and better with being still. It also gets worse with standing up and feels as if she is going to pass out. Denies any chest pain palpitations or shortness of breath. No blurry vision, numbness tingling or focal weakness. Reports having similar symptoms many years ago. No headache. Does have some si nus congestion. No tinnitus (RJ CHAVIRA) Allergies/Adverse Reactions: amoxicillin Allergy (Verified 07/28/24 08:31) Penicillins Allergy (Verified 07/28/24 08:31) Sulfa (Sulfonamide Antibiotics) [Sulfa(Sulfonamide Antibiotics)] Allergy (Verified 07/28/24 08:31) Home Medications: Venlafaxine HCl [Effexor] 37.5 mg PO BID 12/17/14 [History] clonazePAM [Klonopin] 0.5 mg PO BID PRN 12/17/14 [History] estradioL [Estradiol] 1 mg PO DAILY 01/18/19 [History] Tirzepatide [Mounjaro] See Rx Instructions .ROUTE .COMPLEX 03/28/24 [History] Travel Risk - International Travel Have you traveled outside of the country in past 3 weeks: No - Emerging Infectious Disease Are you exhibiting symptoms associated with any current EIDs: No Symptoms: Headaches/Body Aches/, Other (Please Comment) Comment: weakness, fatigue <RIDGE CHAVIRAR - Last Filed: 07/29/24 12:27> - Review of Systems Constitutional: No Symptoms Eyes: No Symptoms Ears, Nose, & Throat: Sinus Drainage Respiratory: No Symptoms Cardiac: No Symptoms Abdominal/Gastrointestinal: Nausea Genitourinary Symptoms: No Symptoms Musculoskeletal: No Symptoms Skin: No Symptoms Neurological: Dizziness Psychological: No Symptoms Endocrine: No Symptoms Hematologic/Lymphatic: No Symptoms <RIDGE CHAVIRAR - Last Filed: 07/29/24 12:27> - Past Medical History Pertinent Past Medical History: Yes Neurological History: No Pertinent History ENT History: No Pertinent History Cardiac History: High Cholesterol, Hypertension Respiratory History: Asthma Endocrine Medical History: Diabetes Type II Musculoskeletal History: No Pertinent History, Other GI Medical History: Diverticulitis, Diverticulosis, Gallbladder Disease History: No Pertinent History Psycho-Social History: Anxiety, Depression Female Reproductive Disorders: Endometriosis, Other Other Medical History: mononucleosis - Past Surgical History Past Surgical History: Yes Neuro Surgical History: No Pertinent History Cardiac: No Pertinent History Respiratory: No Pertinent History Gastrointestinal: Bowel Surgery, Cholecystectomy Genitourinary: No Pertinent History Musculoskeletal: No Pertinent History Female Surgical History: Hysterectomy Other Surgical History: bowel resection on 04/06/18, right achilles surgery Significant Family History: no pertinent family hx - Female History Hx Last Menstrual Period: HYST Hx Now: No - Social History Smoking Status: Former smoker Exposure to second hand smoke: No Drug Use: none Patient Lives Alone: No - Social Determinants of Health Will the patient participate in the screening: Declined to provide <RIDGE CHAVIRAR - Last Filed: 07/29/24 12:27> - Angel Coma Scale Best Eye Response (Dazey): (4) open spontaneously Best Verbal Response (Dazey): (5) oriented Best Motor Response (Dazey): (6) obeys commands Angel Total: 15 - Physical Exam General Appearance: no apparent distress, alert Eye Exam: bilateral eye: normal inspection, PERRL, EOMI Ears, Nose, Throat Exam: other (Mild maxillary tenderness) Neck Exam: normal inspection, non-tender, supple, full range of motion Respiratory: normal breath sounds, lungs clear Cardiovascular: regular rate/rhythm, normal heart sounds Gastrointestinal: soft, normal bowel sounds, No tenderness Back Exam: normal inspection Extremity Exam: normal inspection, normal range of motion Mental Status: alert, oriented x 3, cooperative, 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 Exam: normal hearing, normal speech, PERRL Coordination/Gait: normal finger to nose, normal gait, normal cerebellar function, negative Romberg's sign Motor/Sensory: no motor deficit, no sensory deficit, no pronator drift, negative Babinski's sign DTR: bicep (R): 2+, bicep (L): 2+, knee (R): 2+, knee (L): 2+ Skin Exam: normal color SpO2 Interpretation: normal SpO2: 99 O2 Delivery: Room Air <RJ CHAVIRA - Last Filed: 07/29/24 12:27> - Nursing Vital Signs Nursing Vital Signs: Initial Vital Signs Temperature 95.8 F 07/28/24 03:22 Pulse Rate 74 07/28/24 03:22 Respiratory Rate 18 07/28/24 03:22 Blood Pressure 125/83 07/28/24 03:22 O2 Sat by Pulse Oximetry 99 07/28/24 03:22 Pain Scale Pain Intensity 0 Ordered Tests: Active Orders 24 hr Category Date Time Status CULTURE,URINE Stat Lab 07/29/24 07:19 Received UA W/RFX UR CULTURE Stat Lab 07/29/24 07:19 Completed Medication Summary Discontinued Medications Generic Name Dose Route Start Last Admin Trade Name Vikashq PRN Reason Stop Dose Admin Acetaminophen 650 mg 07/28/24 08:27 Acetaminophen 325 Mg Tablet PO 08/27/24 08:26 Q4H PRN PRN PAIN, FEVER, HEADACHE Sodium Chloride 1,000 mls @ 999 mls/hr 07/28/24 03:28 07/28/24 05:25 Sodium Chloride 0.9% 1000 Ml IV 07/28/24 04:28 Infused .Q1H1M STA Infusion Sodium Chloride Confirm 07/28/24 03:58 Sodium Chloride 0.9% 1000 Ml Administered 07/28/24 03:59 Dose 1,000 mls @ ud .ROUTE .STK-MED ONE Sodium Chloride 1,000 mls @ 100 mls/hr 07/28/24 09:45 07/28/24 23:30 Sodium Chloride 0.9% 1000 Ml IV 08/27/24 09:44 100 mls/hr .Q10H SUSAN Administration Insulin Human Lispro 0 unit 07/28/24 09:43 Insulin Lispro 1 Unit SQ 08/27/24 09:42 UD PRN HYPERGLYCEMIA Meclizine HCl 25 mg 07/28/24 03:28 07/28/24 04:00 Meclizine Hcl 25 Mg Tablet PO 07/28/24 03:29 25 mg STAT ONE Administration Meclizine HCl Confirm 07/28/24 03:58 Meclizine Hcl 25 Mg Tablet Administered 07/28/24 03:59 Dose 25 mg .ROUTE .STK-MED ONE Meclizine HCl 25 mg 07/28/24 10:00 07/29/24 10:00 Meclizine Hcl 25 Mg Tablet PO 08/27/24 09:59 25 mg TID SUSAN Administration Ondansetron HCl 4 mg 07/28/24 03:28 07/28/24 04:00 Ondansetron Hcl 4 Mg/2 Ml Vial IV 07/28/24 03:29 4 mg STAT ONE Administration Ondansetron HCl Confirm 07/28/24 03:58 Ondansetron Hcl 4 Mg/2 Ml Vial Administered 07/28/24 03:59 Dose 4 mg .ROUTE .STK-MED ONE Ondansetron HCl 4 mg 07/28/24 08:27 07/28/24 10:57 Ondansetron Hcl 4 Mg/2 Ml Vial IV 08/27/24 08:26 4 mg Q6H PRN PRN Administration NAUSEA/VOMITING Venlafaxine HCl 37.5 mg 07/29/24 10:00 07/28/24 22:16 Venlafaxine Hcl Er 37.5 Mg 37.5 Mg Cap PO 08/28/24 09:59 37.5 mg DAILY SUSAN Administration Lab/Rad Data: Laboratory Result Diagrams 07/28/24 03:42 07/28/24 03:42 Laboratory Results 07/28/24 07/28/24 07/28/24 Range/Units 07:46 07:46 03:42 WBC (3.98-10.04) x10^3/uL RBC (3.93-5.22) x10^6/uL Hgb (11.2-15.7) g/dL Hct (34.1-44.9) % MCV (79.4-94.8) fL MCH (25.6-32.2) pg MCHC (32.2-35.5) g/dL RDW (11.7-14.4) % Plt Count (182-369) x10^3/uL MPV (9.4-12.3) fL Gran % (34.0-71.1) % Immature Gran % (Auto) (0.001-0.429) % Nucleat RBC Rel Count (0.00-0.2) % Eos # (Auto) (0.04-0.36) x10^3/uL Immature Gran # (Auto) (0.001-0.031) x10^3u/L Absolute Lymphs (auto) (1.18-3.74) x10^3/uL Absolute Monos (auto) (0.24-0.86) x10^3/uL Absolute Nucleated RBC (0.00-0.012) x10^3u/L Lymphocytes % (19.3-51.7) % Monocytes % (4.7-12.5) % Eosinophils % (0.7-5.8) % Basophils % (0.1-1.2) % Absolute Granulocytes (1.56-6.13) x10^3/uL Basophils # (0.01-0.08) x10^3/uL Sodium (135-145) mmol/L Potassium (3.5-5.1) mmol/L Chloride (98-107) mmol/L Carbon Dioxide (22-30) mmol/L Anion Gap (5-15) MEQ/L BUN (7-17) mg/dL Creatinine (0.52-1.04) mg/dL Estimated GFR ML/MIN Glucose (74-106) mg/dL Calcium (8.4-10.2) mg/dL Magnesium (1.6-2.3) mg/dL Total Bilirubin (0.2-1.3) mg/dL AST (14-36) U/L ALT (0-35) U/L Alkaline Phosphatase (38-126) U/L Troponin I < 0.012 < 0.012 (0.000-0.033) ng/mL Serum Total Protein (6.3-8.2) g/dL Albumin (3.5-5.0) g/dL TSH 3rd Generation 1.288 (0.470-4.680) mIU/L 07/28/24 07/28/24 Range/Units 03:42 03:42 WBC 10.1 H (3.98-10.04) x10^3/uL RBC 5.13 (3.93-5.22) x10^6/uL Hgb 14.0 (11.2-15.7) g/dL Hct 43.6 (34.1-44.9) % MCV 85.0 (79.4-94.8) fL MCH 27.3 (25.6-32.2) pg MCHC 32.1 L (32.2-35.5) g/dL RDW 12.7 (11.7-14.4) % Plt Count 333 (182-369) x10^3/uL MPV 9.8 (9.4-12.3) fL Gran % 56.0 (34.0-71.1) % Immature Gran % (Auto) 0.4 (0.001-0.429) % Nucleat RBC Rel Count 0.0 (0.00-0.2) % Eos # (Auto) 0.29 (0.04-0.36) x10^3/uL Immature Gran # (Auto) 0.04 H (0.001-0.031) x10^3u/L Absolute Lymphs (auto) 3.07 (1.18-3.74) x10^3/uL Absolute Monos (auto) 0.97 H (0.24-0.86) x10^3/uL Absolute Nucleated RBC 0.00 (0.00-0.012) x10^3u/L Lymphocytes % 30.3 (19.3-51.7) % Monocytes % 9.6 (4.7-12.5) % Eosinophils % 2.9 (0.7-5.8) % Basophils % 0.8 (0.1-1.2) % Absolute Granulocytes 5.67 (1.56-6.13) x10^3/uL Basophils # 0.08 (0.01-0.08) x10^3/uL Sodium 136 (135-145) mmol/L Potassium 4.5 (3.5-5.1) mmol/L Chloride 102 (98-107) mmol/L Carbon Dioxide 29 (22-30) mmol/L Anion Gap 9.5 (5-15) MEQ/L BUN 11 (7-17) mg/dL Creatinine 0.77 (0.52-1.04) mg/dL Estimated GFR 93.3 ML/MIN Glucose 140 H (74-106) mg/dL Calcium 9.2 (8.4-10.2) mg/dL Magnesium 1.9 (1.6-2.3) mg/dL Total Bilirubin 0.50 (0.2-1.3) mg/dL AST 26 (14-36) U/L ALT 20 (0-35) U/L Alkaline Phosphatase 87 (38-126) U/L Troponin I (0.000-0.033) ng/mL Serum Total Protein 6.5 (6.3-8.2) g/dL Albumin 3.9 (3.5-5.0) g/dL TSH 3rd Generation (0.470-4.680) mIU/L - Progress Counseled pt/family regarding: lab results, diagnosis, rad results <CHELO MAC - Last Filed: 07/28/24 07:47> - Progress Progress: improved <RJ CHAVIRA - Last Filed: 07/29/24 12:27> - Progress Progress Note: 07/28/24 07:47 I reviewed the patient's laboratory data results as well as the results of the CT scan of the head, CTA of the head and CT angiography of the neck. I also reviewed the teleneurologist recommendations with Dr. Chavira. I then spoke with Dr. Neil. He is our telehospitalist on at this time. I reviewed the patient complaint, past medical history, findings on examination and workup results. I also discussed with him the teleneurologist recommendations. He accepts the patient to be placed in observation and further workup. (CHELO MAC) 07/28/24 06:11 49-year-old is evaluated in the ER for sudden onset dizziness upon waking up around midnight. Last well-known at 9:30 PM. Patient has no other focal neurodeficit. CT head is obtained which is negative. Prompt SOC neurology consult is obtained who has evaluated patient, recommended CTA head and neck and MRI for further daniel luation of posterior fossa stroke. Normal white count, fairly unremarkable chemistries. The EKG is normal sinus rhythm with no ST elevations. Troponins are negative. Patient would be admitted to hospitalist service for observation. Now shared the results of workup with patient and family and recommendations of neurology which they understand and agree. (RJ CHAVIRA) Medical Desision Making - Diagnostic Testing Diagnostic test were ordered, analyzed, and reviewed by me: Yes Radiological Interpretation: Reviewed by me, Teleradiologist Report - Risk of complications The pt has a high risk of morbidity or mortality based on: Decision regarding hospitilization or escalation of hosp level of care <CHELO MAC - Last Filed: 07/28/24 07:47> - Departure Departure Disposition: Observation Critical Care Time: No <CHELO MAC - Last Filed: 07/28/24 07:47> <RJ CHAVIRA - Last Filed: 07/29/24 12:27> - Departure Clinical Impression: Dizziness Condition: Stable
[2024-07-28 03:45] LABS: Absolute Neutrophil Ct (ANC) 5.67 x10^3/uL (1.56-6.13); BASOPHIL % 0.8 % (0.1-1.2); Basophil (Absolute #) 0.08 x10^3/uL (0.01-0.08); Eosinophil % 2.9 % (0.7-5.8); Eosinophil (Absolute #) 0.29 x10^3/uL (0.04-0.36); Hematocrit 43.6 % (34.1-44.9); IMMATURE GRAN # 0.04 x10^3u/L (0.001-0.031); IMMATURE GRAN % 0.4 % (0.001-0.429); Lymphocyte (Absolute #) 3.07 x10^3/uL (1.18-3.74); Lymphocytes % 30.3 % (19.3-51.7); Mean Corpuscular Hemoglobin 27.3 pg (25.6-32.2); Mean Corpuscular Hgb Concent. 32.1 g/dL (32.2-35.5); Mean Platelet Volume 9.8 fL (9.4-12.3); Monocyte (Absolute #) 0.97 x10^3/uL (0.24-0.86); Monocytes % 9.6 % (4.7-12.5); Platelet Count 333 x10^3/uL (182-369); Red Blood Count 5.13 x10^6/uL (3.93-5.22); Red Cell Distribution Width 12.7 % (11.7-14.4); White Blood Count 10.1 x10^3/uL (3.98-10.04)
[2024-07-28] MEDS ORDERED: Sodium Chloride 0.9% 1000 ML 1,000 ML ONE (03:58)
[2024-07-28] MEDS ORDERED: ANTIVERT 25 MG ONE (03:58)
[2024-07-28] MEDS ORDERED: Zofran 4 MG/2 ML VIAL ONE (03:58)
[2024-07-28 03:59] LABS: ALBUMIN 3.9 g/dL (3.5-5.0); ANION GAP 9.5 MEQ/L (5-15); BILIRUBIN,TOTAL 0.5 mg/dL (0.2-1.3); Calcium 9.2 mg/dL (8.4-10.2); Creatinine 1 0.77 mg/dL (0.52-1.04); EST GLOMERULAR FILTRATION RATE 93.3 ML/MIN; MAGNESIUM 1.9 mg/dL (1.6-2.3); Potassium 4.5 mmol/L (3.5-5.1); Total Protein 6.5 g/dL (6.3-8.2)
[2024-07-28] MEDS: Zofran 4 MG/2 ML VIAL IV ONE (04:00)
[2024-07-28] MEDS: Sodium Chloride 0.9% 1000 ML 1,000 ML IV STA (04:00)
[2024-07-28] MEDS: ANTIVERT 25 MG PO ONE (04:00)
--- NOTE | 2024-07-28 04:09 | XRAY ---
CLINICAL HISTORY: dizziness COMPARISON: No priors for comparison TECHNIQUE: Axial non-contrast CT scan of the brain was performed from the skull base to the high parietal region. One of the following dose reduction techniques were utilized for this exam: Automated exposure control, adjustment of the mA and/or kV according to patient size, use of iterative reconstruction. FINDINGS: Brain Parenchyma: Normal attenuation of the cerebral hemispheres, cerebellum, and brainstem. No evidence of acute infarct, hemorrhage, or mass effect. No abnormal areas of hypo- or hyperattenuation. Ventricular System: Ventricles are normal in size and configuration. No evidence of hydrocephalus or ventricular enlargement. Subarachnoid Spaces: Normal sulci and cisterns. No evidence of subarachnoid hemorrhage or extra-axial fluid collections. Cerebellum and Brainstem: Normal size and signal. No masses, lesions, or areas of abnormal signal. Skull: Normal skull morphology. IMPRESSION: No acute intra cranial abnormality or signs of acute ischemic insult based on CT study, if still clinically indicated MRI/DWI is suggested. Electronically Signed by: Amelia Conley MD. (07/28/2024 04:05:34 EST)
--- NOTE | 2024-07-28 04:39 | PCM.NOTE ---
Date and Time: 07/28/24 3820 Subjective Assessment: Consult Cover Page FROM: [facility], Call Back Number: [phone] SUBJECT: Consult Recommendations Date and Time of Report: 07/28/2024 04:36 AM ET Items Contained in this Document: Neurology Consult Note Consult Information Member Facility: [facility] Facility Consult ID: [id number] Facility Time Zone: ET Date and Time of Request: 07-28-2024 03:33 AM ET Requesting Clinician: Dr. Brantley Patient Name: BRENDAN FOSS Date of : 1975 Gender: Female Patient identity was confirmed at the beginning of the consult with the patient/family/staff using two personal identifiers: Patient name and Reason for Consult Reason for Consult: Code Stroke TLKW less than 4.5 hours General Chief Complaint: dizziness, nausea Patient Location and Admission Status: ED- Patient is not admitted Family Members and Medical Staff Present During Exam: , RN History of Present Illness: This teleneurology consultation was performed via two-way video conferencing using HIPAA-compliant interactive video-audio telecommunications with the patient present. Name and were confirmed at the start of the interview. The patient was in CT at the time of consult assignment and returned to the room at 03:43. 49yo F with PMH of diverticulitis s/p colon resection, endometriosis s/p hysterectomy, DM, depression, vertigo who presented to the ED with dizziness and nausea. She reports LKN as 21:30 prior to going to sleep. She states she awoke around 00:30 with dizziness and nausea. She and her state she had vertigo about 15 years ago that was treated with medication. She states her current dizziness feels like the episode she had 15y ago. She describes the dizziness and world spinning, lightheadedness, feeling shaky and nauseous. She states the dizziness is worst with movement but she can still feel it if she lies down a certain way. She denies weakness, numbness, tingling, blurred vision, double vision, loss of vision, speech changes, vomiting. She states her BG was 146 at home. She denies history of seizure, stroke, migraine. Number of Documented HPI Elements: 4+ Medical History Other Medical History: diverticulitis s/p colon resection, endometriosis s/p hysterectomy, DM, depression, vertigo Other Family History: [place], DM Allergies Allergies: Penicillin, Sulfa Other Allergies: amoxicillin Medications Anti-Coagulants: None Anti-Platelets: None Other Medications: effexor, klonopin, estradiol, mounjaro Social History Tobacco Use: Past Other Social History : occasional alcohol use Vital Signs Temperature: Afebrile Blood Pressure (mmHg): 118/85 Heart Rate (bpm): 69 O2 Sat (%): 99 Date and Time: 07/28/2024 03:49:06 AM ET POC Glucose(mg/dL): 140 Review Of Systems Neurological: See HPI Gastrointestinal: See HPI Ophthalmology: See HPI NIH Stroke Scale NIH Stroke Scale Score: 1 1. Level of Consciousness: 0 : alert; keenly responsive. 1a. LOC Questions: 1 : Answers one question correctly. 1b. LOC Commands: 0 : Performs both tasks correctly. 2. Best Gaze: 0 : Normal. 3. Visual: 0 : No visual loss. 4. Facial Palsy: 0 : Normal symmetrical movements. 5a. Motor Left Arm: 0 : No drift; limb holds 90 (or 45) degrees for full 10 seconds. 5b. Motor Right Arm : 0 : No drift; limb holds 90 (or 45) degrees for full 10 seconds. 6a. Motor Left Le : No drift; leg holds 30-degree position for full 5 seconds. 6b. Motor Right Le : No drift; leg holds 30-degree position for full 5 seconds. 7. Limb Ataxia: 0 : Absent. 8. Sensory: 0 : Normal; no sensory loss. 9. Best Language: 0 : No aphasia; normal. 10. Dysarthria: 0 : Normal. 11. Extinction and inattention (formerly Neglect) : 0 : No abnormality. NIHSS Entry Time: 07/28/2024 03:53:26 AM ET Exam Exam: Alert. Oriented to person, place, month, year. States age is 51. Normal work of breathing. EOMI, smile symmetric, tongue midline. Speech is clear and language is normal. No drift in extremities x4. Sensation symmetric. No dysmetria with finger to nose or heel to bolton bilaterally. Slowed, steady gait. Clinician assisting with exam: RN Labs and Imaging Labs available?: Yes Blood Glucose (mg/dL): [address] Findings : CT- no hemorrhage or large territory infarct Assessment and Recommendations Assessment: 49yo F with PMH of diverticulitis s/p colon resection, endometriosis s/p hysterectomy, DM, depression, vertigo who presented to the ED with dizziness and nausea. Peripheral vestibular dysfunction is suspected given history of similar prior episode and lack of focal deficits however central etiology such as stroke should be ruled out. Recommendations: -CTA H&N and MRI brain to rule out central etiology for dizziness such as stroke -Symptomatic treatment with meclizine and antiemetics -Further recommendations pending results of the above -Frequent neuro checks and vital signs -All recommendations unless contraindicated -Inpatient neurology or teleneurology follow up. Please reconsult our teleneurology service, if in-house neurology not available, with additional questions, concerns, or changes in this patients neurological status. Disposition: Disposition recommendations pending results of additional workup or management Diagnosis Impression: Other Diagnosis Other: dizziness Case discussed with: Dr. Brantley Inclusion Criteria Time Last Known Well: 07-27-2024 09:30 PM ET Thrombolysis Recommendation Thrombolysis recommended?: No Reason Thrombolysis not recommended: Outside of window Reason Thrombolysis not recommended Comments: no focal deficits, steady gait Attestation Interaction Mode: Video & Phone Time of Phone Call : 07-28-2024 04:06 AM ET Time of Video Call : 07-28-2024 03:40 AM ET Interaction Attestation: Clinical telemedicine services delivered using HIPAA- compliant interactive video-audio telecommunications while the patient and the rendering provider were not in the same physical location. Written report was provided to the requesting provider. Evaluation Duration (mins): 15 Bhakta Timer Summary ED Arrival Date and Time: 07-28-2024 03:12 AM ET Date and Time of Request: 07-28-2024 03:33 AM ET Physician Signature This document was electronically signed by: Dalia Mendez MD Objective Exam - Vital Signs Vital Signs: Vital Signs - 24 hr 07/28/24 07/28/2425 03:22 03:30 04:12 Temperature 95.8 F Pulse Rate 74 72 Respiratory 18 Rate Blood Pressure 118/85 Blood Pressure 125/83 [Right Arm] O2 Sat by Pulse 99 97 99 Oximetry Objective Data - Labs Lab/Micro Results: Lab Results-Last 24 Hours 07/28/24 07/28/24 07/28/24 Range/Units 03:42 03:42 03:42 WBC 10.1 H (3.98-10.04) x10^3/uL RBC 5.13 (3.93-5.22) x10^6/uL Hgb 14.0 (11.2-15.7) g/dL Hct 43.6 (34.1-44.9) % MCV 85.0 (79.4-94.8) fL MCH 27.3 (25.6-32.2) pg MCHC 32.1 L (32.2-35.5) g/dL RDW 12.7 (11.7-14.4) % Plt Count 333 (182-369) x10^3/uL MPV 9.8 (9.4-12.3) fL Gran % 56.0 (34.0-71.1) % Immature Gran % (Auto) 0.4 (0.001-0.429) % Nucleat RBC Rel Count 0.0 (0.00-0.2) % Eos # (Auto) 0.29 (0.04-0.36) x10^3/uL Immature Gran # (Auto) 0.04 H (0.001-0.031) x10^3u/L Absolute Lymphs (auto) 3.07 (1.18-3.74) x10^3/uL Absolute Monos (auto) 0.97 H (0.24-0.86) x10^3/uL Absolute Nucleated RBC 0.00 (0.00-0.012) x10^3u/L Lymphocytes % 30.3 (19.3-51.7) % Monocytes % 9.6 (4.7-12.5) % Eosinophils % 2.9 (0.7-5.8) % Basophils % 0.8 (0.1-1.2) % Absolute Granulocytes 5.67 (1.56-6.13) x10^3/uL Basophils # 0.08 (0.01-0.08) x10^3/uL Sodium 136 (135-145) mmol/L Potassium 4.5 (3.5-5.1) mmol/L Chloride 102 (98-107) mmol/L Carbon Dioxide 29 (22-30) mmol/L Anion Gap 9.5 (5-15) MEQ/L BUN 11 (7-17) mg/dL Creatinine 0.77 (0.52-1.04) mg/dL Estimated GFR 93.3 ML/MIN Glucose 140 H (74-106) mg/dL Calcium 9.2 (8.4-10.2) mg/dL Magnesium 1.9 (1.6-2.3) mg/dL Total Bilirubin 0.50 (0.2-1.3) mg/dL AST 26 (14-36) U/L ALT 20 (0-35) U/L Alkaline Phosphatase 87 (38-126) U/L Troponin I < 0.012 (0.000-0.033) ng/mL Serum Total Protein 6.5 (6.3-8.2) g/dL Albumin 3.9 (3.5-5.0) g/dL - Radiology Orders Radiology Orders: Radiology Procedures Category Date Time Status CT ANGIOGRAPHY NECK [CT] Stat Exams 07/28/24 04:10 Ordered CTA HEAD W AND/OR WO CONTRAST [CT] Stat Exams 07/28/24 04:10 Ordered HEAD WITHOUT CONTRAST [CT] Stat Exams 07/28/24 03:41 Completed Assessment & Plan - Encounter Encounter: "The entirety of this encounter was performed via Telemedicine using audio and visual "
--- NOTE | 2024-07-28 05:22 | XRAY ---
CLINICAL HISTORY: dizziness COMPARISON: none TECHNIQUE: CT of the neck and head angiography was performed with contrast in the arterial phase (100cc Isovue 370). Sagittal and coronal reconstructions were obtained. One of the following dose reduction techniques were utilized for this exam: Automated exposure control, adjustment of the mA and/or kV according to patient size, use of iterative reconstruction? FINDINGS: The aortic arch is seen homogenously opacified with contrast and its main arterial branches in the neck. No stenotic lesions or dissecting intimal flaps. Patent homogenously opacified common carotid arteries. No stenotic lesions, aneurysmal dilatation or dissecting intimal flaps. Patent carotid bulbs. Patent external carotid arteries. Patent homogenously opacified cervical segments of the internal carotid arteries showing retropharyngeal course. Patent vertebral arteries showing homogenous contrast opacification. No stenotic lesions or dissecting intimal flaps. Normal CT appearance of the nasopharynx and glottic region. Subcentimetric bilateral cervical lymph nodes, possibly reactive. The visualized cervical spine shows mild spondylosis. IMPRESSION: Patent extra-cranial carotid and vertebral arteries. No stenotic lesions, aneurysmal dilatation or dissecting intimal flaps. Electronically Signed by: Amelia Conley MD. (07/28/2024 05:16:48 EST)
--- NOTE | 2024-07-28 05:22 | XRAY ---
CLINICAL HISTORY: dizziness COMPARISON: none TECHNIQUE: Axial slices from CT angiography of intracranial vessels have been submitted for interpretation. 100cc Isovue 370 was administered as IV contrast. One of the following dose reduction techniques were utilized for this exam: Automated exposure control, adjustment of the mA and/or kV according to patient size, use of iterative reconstruction. CT scan performed according to ALARA principles. Automated exposure control used during the exam. FINDINGS: Patent petrous, cavernous and supraclinoid segments of the internal carotid arteries. Homogenous contrast filling of the anterior cerebral arteries (A1 to A4), anterior communicating artery (A Com). Homogenous contrast filling of the middle cerebral arteries and their branches. Persistent origin of the posterior cerebral arteries with hypoplastic basilar artery. Variant. Otherwise, homogenous contrast filling of the basilar artery and V4 segments of the vertebral arteries. Normal contrast filling of the posterior cerebral arteries and their normal anatomical variants. Normal contrast filling is noted in all of these mentioned arteries without any No stenotic lesions, occlusion, aneurysmal dilatation or arteriovenous malformation. IMPRESSION: Patent intracranial vessels constituting [place] without any occlusion, aneurysmal dilatation or arteriovenous malformation. Electronically Signed by: Amelia Conley MD. (07/28/2024 05:18:10 EST)
[2024-07-28] MEDS ORDERED: TYLENOL 325 MG PO PRN (08:27)
--- NOTE | 2024-07-28 09:37 | PCM.HP ---
History of Present Illness - Chief Complaint Chief Complaint: Dizziness Date: 07/28/24 History of Present Illness: is a 49 year old female with a pmhx of HLD, DMII, endometrosis, diverticulitis (with colon resection 4 years ago), and asthma who presented to ED 07/28/24 with complaints of severe dizziness. Patient states she woke up around midnight with a dizzy "room spinning" sensation and nausea. She attempted to get up to let her dog out - made it to the kitchen but then felt like she was going to pass out. She report similar symptoms about 15 years ago and was diagnosed with vertigo at that time. No recent episodes. The dizziness is aggravated with movement and when she turns her head a certain way. Dizziness also with standing from sitting. She denies weakness, numbness, tingling, blurred vision, double vision, loss of vision, speech changes, vomiting. She states her BG was 146 at home. She denies history of seizure, stroke, migraine. Upon arrival to ED, vitals stable. Orthostatic vitals obtained and negative for orthostatic hypotension. CT head, CTA head, and neck unremarkable. Tele-neuro consulted with recommendations for further imaging with MRI. Lab findings unremarkable. Patient received IVF bolus, zofran, and meclizine which she states has relieved symptoms somewhat. Plan admit for dizziness. - Review of Systems Constitutional: No Symptoms Eyes: No Symptoms Ears, Nose, & Throat: No Symptoms Respiratory: No Symptoms Cardiac: No Symptoms Abdominal/Gastrointestinal: Nausea Genitourinary Symptoms: No Symptoms Musculoskeletal: No Symptoms Skin: No Symptoms Neurological: Dizziness Psychological: No Symptoms Hematologic/Lymphatic: No Symptoms Immunological/Allergic: No Symptoms Medications & Allergies Home Medications: Home Medication List Venlafaxine HCl [Effexor] 37.5 mg PO BID 12/17/14 [History Confirmed 07/28/24] clonazePAM [Klonopin] 0.5 mg PO BID PRN 12/17/14 [History Confirmed 07/28/24] estradioL [Estradiol] 1 mg PO DAILY 01/18/19 [History Confirmed 07/28/24] Tirzepatide [Mounjaro] See Rx Instructions .ROUTE .COMPLEX 03/28/24 [History Confirmed 07/28/24] Allergies/Adverse Reactions: Allergies Allergy/AdvReac Type Severity Reaction Status Date / Time amoxicillin Allergy Verified 07/28/24 08:31 Penicillins Allergy Verified 07/28/24 08:31 Sulfa (Sulfonamide Allergy Verified 07/28/24 08:31 Antibiotics) [Sulfa(Sulfonamide Antibiotics)] - Past Medical History Past Medical History: Yes Neurological History: No Pertinent History ENT History: No Pertinent History Cardiac History: High Cholesterol, Hypertension Respiratory History: Asthma Endocrine Medical History: Diabetes Type II Musculoskelatal History: No Pertinent History, Other GI Medical History: Diverticulitis, Diverticulosis, Gallbladder Disease, Other History: No Pertinent History Pyscho-Social History: Anxiety, Depression Reproductive Disorders: Endometriosis, Other Comment: mononucleosis, vertigo - Female History Hx Last Menstrual Period: HYST Are you now?: No - Past Surgical History Past Surgical History: Yes Neuro Surgical History: No Pertinent History Cardiac History: No Pertinent History Respiratory Surgery: No Pertinent History GI Surgical History: Bowel Surgery, Cholecystectomy Genitourinary Surgical Hx: No Pertinent History Musculskeletal Surgical Hx: No Pertinent History Female Surgical History: Hysterectomy Other Surgical History: bowel resection on 04/06/18, right achilles surgery Significant Family History: heart disease, cancer, diabetes - Social History Smoking Status: Former smoker Exposure to second hand smoke: No Alcohol: Occasionally Drug Use: none - Social Determinants of Health Will the patient participate in the screening: Yes Do you worry about a steady place to live?: No Do you have any problems with any of the following?: No known problems In the past 12 months,have you had to go without utilities?: No Have you or anyone in your house had to go without enough: No Transportation Issues: No Has anyone in your support network made you feel unsafe?: No Does the patient want assistance with any of the above?: No - Physical Exam Vital Signs: Vital Signs - 24 hr Temp Pulse Resp BP BP Pulse Ox 07/28/24 08:37 98.0 F 74 16 147/78 96 07/28/24 08:00 112/72 96 07/28/24 07:30 114/85 98 07/28/24 07:00 75 111/78 95 07/28/24 06:31 74 90/64 95 07/28/24 06:30 74 90/65 97 07/28/24 06:00 70 103/62 96 07/28/24 05:30 69 87/65 96 07/28/24 05:00 70 106/69 98 07/28/24 04:17 72 116/88 99 07/28/24 04:16 66 107/78 98 07/28/24 04:14 67 104/69 97 07/28/24 04:12 99 07/28/24 04:00 70 121/76 98 07/28/24 03:30 72 118/85 97 07/28/24 03:22 95.8 F 74 18 125/83 99 General Appearance: no apparent distress Neurologic Exam: alert, oriented x 3, cooperative Eye Exam: PERRL/EOMI Ears, Nose, Throat Exam: normal ENT inspection Neck Exam: normal inspection Respiratory Exam: normal breath sounds, lungs clear Cardiovascular Exam: regular rate/rhythm, normal heart sounds Gastrointestinal/Abdomen Exam: soft, normal bowel sounds Pelvic Exam: not done Rectal Exam: deferred Back Exam: normal inspection Extremity Exam: normal inspection Skin Exam: normal color Results - Labs Lab/Micro Results: Lab Results-Last 24 Hours 07/28/24 07/28/24 07/28/24 Range/Units 03:42 03:42 03:42 WBC 10.1 H (3.98-10.04) x10^3/uL RBC 5.13 (3.93-5.22) x10^6/uL Hgb 14.0 (11.2-15.7) g/dL Hct 43.6 (34.1-44.9) % MCV 85.0 (79.4-94.8) fL MCH 27.3 (25.6-32.2) pg MCHC 32.1 L (32.2-35.5) g/dL RDW 12.7 (11.7-14.4) % Plt Count 333 (182-369) x10^3/uL MPV 9.8 (9.4-12.3) fL Gran % 56.0 (34.0-71.1) % Immature Gran % (Auto) 0.4 (0.001-0.429) % Nucleat RBC Rel Count 0.0 (0.00-0.2) % Eos # (Auto) 0.29 (0.04-0.36) x10^3/uL Immature Gran # (Auto) 0.04 H (0.001-0.031) x10^3u/L Absolute Lymphs (auto) 3.07 (1.18-3.74) x10^3/uL Absolute Monos (auto) 0.97 H (0.24-0.86) x10^3/uL Absolute Nucleated RBC 0.00 (0.00-0.012) x10^3u/L Lymphocytes % 30.3 (19.3-51.7) % Monocytes % 9.6 (4.7-12.5) % Eosinophils % 2.9 (0.7-5.8) % Basophils % 0.8 (0.1-1.2) % Absolute Granulocytes 5.67 (1.56-6.13) x10^3/uL Basophils # 0.08 (0.01-0.08) x10^3/uL Sodium 136 (135-145) mmol/L Potassium 4.5 (3.5-5.1) mmol/L Chloride 102 (98-107) mmol/L Carbon Dioxide 29 (22-30) mmol/L Anion Gap 9.5 (5-15) MEQ/L BUN 11 (7-17) mg/dL Creatinine 0.77 (0.52-1.04) mg/dL Estimated GFR 93.3 ML/MIN Glucose 140 H (74-106) mg/dL Calcium 9.2 (8.4-10.2) mg/dL Magnesium 1.9 (1.6-2.3) mg/dL Total Bilirubin 0.50 (0.2-1.3) mg/dL AST 26 (14-36) U/L ALT 20 (0-35) U/L Alkaline Phosphatase 87 (38-126) U/L Troponin I < 0.012 (0.000-0.033) ng/mL Serum Total Protein 6.5 (6.3-8.2) g/dL Albumin 3.9 (3.5-5.0) g/dL 07/28/24 Range/Units 07:46 WBC (3.98-10.04) x10^3/uL RBC (3.93-5.22) x10^6/uL Hgb (11.2-15.7) g/dL Hct (34.1-44.9) % MCV (79.4-94.8) fL MCH (25.6-32.2) pg MCHC (32.2-35.5) g/dL RDW (11.7-14.4) % Plt Count (182-369) x10^3/uL MPV (9.4-12.3) fL Gran % (34.0-71.1) % Immature Gran % (Auto) (0.001-0.429) % Nucleat RBC Rel Count (0.00-0.2) % Eos # (Auto) (0.04-0.36) x10^3/uL Immature Gran # (Auto) (0.001-0.031) x10^3u/L Absolute Lymphs (auto) (1.18-3.74) x10^3/uL Absolute Monos (auto) (0.24-0.86) x10^3/uL Absolute Nucleated RBC (0.00-0.012) x10^3u/L Lymphocytes % (19.3-51.7) % Monocytes % (4.7-12.5) % Eosinophils % (0.7-5.8) % Basophils % (0.1-1.2) % Absolute Granulocytes (1.56-6.13) x10^3/uL Basophils # (0.01-0.08) x10^3/uL Sodium (135-145) mmol/L Potassium (3.5-5.1) mmol/L Chloride (98-107) mmol/L Carbon Dioxide (22-30) mmol/L Anion Gap (5-15) MEQ/L BUN (7-17) mg/dL Creatinine (0.52-1.04) mg/dL Estimated GFR ML/MIN Glucose (74-106) mg/dL Calcium (8.4-10.2) mg/dL Magnesium (1.6-2.3) mg/dL Total Bilirubin (0.2-1.3) mg/dL AST (14-36) U/L ALT (0-35) U/L Alkaline Phosphatase (38-126) U/L Troponin I < 0.012 (0.000-0.033) ng/mL Serum Total Protein (6.3-8.2) g/dL Albumin (3.5-5.0) g/dL - Radiology Impressions Radiology Exams & Impressions: Radiology Procedures Category Date Time Status CT ANGIOGRAPHY NECK [CT] Stat Exams 07/28/24 04:35 Completed CTA HEAD W AND/OR WO CONTRAST [CT] Stat Exams 07/28/24 04:35 Completed HEAD WITHOUT CONTRAST [CT] Stat Exams 07/28/24 03:41 Completed MRI BRAIN W/O CONTRAST [MRI] Stat Exams 07/28/24 08:33 Ordered - Other Procedures and Tests Respiratory Therapy 07/28/24 08:27 EKG REPEAT IN AM Assessment/Plan (1) Dizziness Current Visit: Yes Status: Acute Assessment & Plan: -CT head, CTA head/neck reviewed and negative for acute findings -Tele neuro consulted with recs for MRI pending -Echo -PT consult to eval for BPPV -meclizine -zofran -IVF -UA -Repeat orthostatic vitals -Med review -Tele -tsh Code(s): R42 - DIZZINESS AND GIDDINESS (2) Type 2 diabetes mellitus Current Visit: Yes Status: Acute Assessment & Plan: -ADA diet -SSI -A1c (3) Asthma Current Visit: Yes Status: Acute Assessment & Plan: -Does not appear to be in exacerbation -RA -continue home meds Code(s): J45.909 - UNSPECIFIED ASTHMA, UNCOMPLICATED (4) History of diverticulosis Current Visit: Yes Status: Acute Assessment & Plan: -s/p colon resection VTE: SCD Dispo: 1-2 days Code: Full Code(s): Z87.19 - PERSONAL HISTORY OF OTHER DISEASES OF THE DIGESTIVE SYSTEM
[2024-07-28] MEDS ORDERED: HUMALOG SQ PRN (09:43)
[2024-07-28] MEDS: ANTIVERT 25 MG PO SCH (10:44)
[2024-07-28] MEDS: Zofran 4 MG/2 ML VIAL IV PRN (10:57)
[2024-07-28] MEDS: Sodium Chloride 0.9% 1000 ML 1,000 ML IV SCH (10:57)
--- NOTE | 2024-07-28 11:44 | XRAY ---
Indication: Dizziness. Normal CT head, normal CTA neck, and normal CTA head exams. Sagittal, coronal, and axial MRI brain performed without contrast using T1, T2, FLAIR, diffusion, and ADC sequences. Comparison: None Ventriculosulcal pattern appears symmetric. No acute intracranial hemorrhage, abnormal extra-axial fluid collection, or mass effect. Diffusion images negative for restricted signal. Fourth ventricle is midline without hydrocephalus. 7/8 cranial nerve complex bilaterally symmetric. Normal flow void signal within the major intracerebral circulation. Normal appearing craniocervical junction and sella turcica. Paranasal sinuses are clear. Impression: Negative MRI brain without contrast exam.
[2024-07-28] MEDS: Effexor ER 37.5 MG PO SCH (22:15)
--- NOTE | 2024-07-29 05:18 | PCM.DS ---
Discharge Summary Date of Admission: 07/28/24 08:23 Date of Discharge: 07/29/24 Admitting Physician: GRECIA CHAVIRA MD Primary Care Provider: THOMAS ARAGON Allergies Allergies amoxicillin Allergy (Verified 07/28/24 08:31) Penicillins Allergy (Verified 07/28/24 08:31) Sulfa (Sulfonamide Antibiotics) [Sulfa(Sulfonamide Antibiotics)] Allergy (Verified 07/28/24 08:31) Hospital Summary - Hospital Course Hospital Course: is a 49 year old female with a pmhx of HLD, DMII, endometrosis, diverticulitis (with colon resection 4 years ago), and asthma who presented to ED 07/28/24 with complaints of severe dizziness. Patient states she woke up around midnight with a dizzy "room spinning" sensation and nausea. She attempted to get up to let her dog out - made it to the kitchen but then felt like she was going to pass out. She report similar symptoms about 15 years ago and was diagnosed with vertigo at that time. No recent episodes. The dizziness is aggravated with movement and when she turns her head a certain way. Dizziness also with standing from sitting. She denies weakness, numbness, tingling, blurred vision, double vision, loss of vision, speech changes, vomiting. She states her BG was 146 at home. She denies history of seizure, stroke, migraine.Upon arrival to ED, vitals stable. Orthostatic vitals obtained and negative for orthostatic hypotension. CT head, CTA head, and neck unremarkable. Tele-neuro consulted with recommendations for further imaging with MRI. Lab findings unremarkable. Patient received IVF bolus, zofran, and meclizine which she states has relieved symptoms somewhat. Admitted for dizziness. MRI negative. Physical therapy evaluated patient and noted she tested positive for right and left Nancy Hallpike maneuver and supine roll. Perez performed. PT recommends OP vestibular therapy and patient provided education on home exercises. Will dismiss with meclizine and Zofran. PCP follow up with possible ENT referral if no improvement. Patient agreeable to plan Discharge Note New Diagnosis: BPPV New Medications:Meclizine/zofran Follow Up: PCP/ Physical Therapy - (Wednesday appt made) Results pending: Yoselin I spent 35 minutes [id number] with the patient on the day of discharge performing discharge exam, discussing hospital stay and discharge instructions with patient and caregivers, preparation of discharge records, prescriptions & referral forms and addressing any questions/concerns the patient had as documented above. - Vitals & Intake/Output Vital Signs: Vital Signs Temperature 97.0 F 07/29/24 04:00 Pulse Rate 70 07/29/24 04:00 Respiratory Rate 18 07/29/24 04:00 Blood Pressure 118/59 07/29/24 04:00 O2 Sat by Pulse Oximetry 96 07/29/24 04:00 Intake & Output: Intake & Output 07/26/24 07/27/24 07/28/24 07/29/24 11:59 11:59 11:59 11:59 Intake Total 0 2439 Balance 0 2439 Weight 87.5 kg - Lab Result Diagrams: 07/29/24 05:15 07/29/24 05:15 Lab Results-Last 24 Hrs: Lab Results-Last 24 Hours 07/28/24 07/28/24 07/28/24 Range/Units 07:46 07:46 11:04 POC Glucometer (74 to 106) mg/dL Troponin I < 0.012 < 0.012 (0.000-0.033) ng/mL TSH 3rd Generation 1.288 (0.470-4.680) mIU/L 07/28/24 07/28/24 07/28/24 Range/Units 12:08 16:17 21:36 POC Glucometer 85 105 90 (74 to 106) mg/dL Troponin I (0.000-0.033) ng/mL TSH 3rd Generation (0.470-4.680) mIU/L Micro Results-Entire Visit: Accuchecks Date 07/28/24 Date 07/28/24 Time 16:21 Time 12:12 - Radiology Exams Ordered Rad Exams-Entire Visit: Radiology Procedures Category Date Time Status CT ANGIOGRAPHY NECK [CT] Stat Exams 07/28/24 04:35 Completed CTA HEAD W AND/OR WO CONTRAST [CT] Stat Exams 07/28/24 04:35 Completed ECHO W/2D AND DOPPLER [US] Routine Exams 07/28/24 09:45 Taken HEAD WITHOUT CONTRAST [CT] Stat Exams 07/28/24 03:41 Completed MRI BRAIN W/O CONTRAST [MRI] Stat Exams 07/28/24 08:33 Completed - Procedures and Test Procedures and Tests throughout Hospitalization: Therapy Orders & Screens 07/28/24 08:27 EKG REPEAT IN AM Comment: 07/28/24 09:43 PT Eval & Treat ( Order) ONCE Reason for Eval:: evaluate for BPPV/ Dizziness Diagnosis: Dizziness Discharge Exam General Appearance: no apparent distress Neurologic Exam: alert, oriented x 3, cooperative Eye Exam: PERRL Ears, Nose, Throat Exam: normal ENT inspection Neck Exam: normal inspection Respiratory Exam: normal breath sounds, lungs clear Cardiovascular Exam: regular rate/rhythm, normal heart sounds Gastrointestinal/Abdomen Exam: soft, normal bowel sounds Pelvic Exam: deferred Rectal Exam: deferred Back Exam: normal inspection Extremity Exam: normal inspection Skin Exam: normal color Final Diagnosis/Problem List - Final Discharge Diagnosis/Problem (1) BPPV (benign paroxysmal positional vertigo) Current Visit: Yes Status: Acute Code(s): H81.10 - BENIGN PAROXYSMAL VERTIGO, UNSPECIFIED EAR (2) Dizziness Current Visit: Yes Status: Acute Code(s): R42 - DIZZINESS AND GIDDINESS (3) Type 2 diabetes mellitus Current Visit: Yes Status: Acute (4) Asthma Current Visit: Yes Status: Acute Code(s): J45.909 - UNSPECIFIED ASTHMA, UNCOMPLICATED (5) History of diverticulosis Current Visit: Yes Status: Acute Code(s): Z87.19 - PERSONAL HISTORY OF OTHER DISEASES OF THE DIGESTIVE SYSTEM - Discharge Discharge Date: 07/29/24 Disposition: Home, Self-Care Condition: Stable Prescriptions: New Meclizine HCl 25 mg [Antivert 25 mg] 25 mg PO TID PRN 30 Days #90 tablet PRN Reason: Dizziness Ondansetron ODT 4 MG [Zofran Odt 4 mg] 4 mg PO Q6HPRN PRN #30 tab PRN Reason: Nausea Continue Venlafaxine HCl [Effexor] 37.5 mg PO BID clonazePAM [Klonopin] 0.5 mg PO BID PRN PRN Reason: Anxiety estradioL [Estradiol] 1 mg PO DAILY Tirzepatide [Mounjaro] See Rx Instructions .ROUTE .COMPLEX Outpatient Orders: Physical Therapy Eval & Treat Time Frame: 07/28/24, Facility: [facility], Location: PHYSICAL THERAPY Additional Instructions: YOUR FIRST APT WITH PHYSICAL THERAPY IS Wednesday07/31/24@0900 Follow up with: THOMAS ARAGON MD [Primary Care Provider] -
[2024-07-29 05:53] LABS: Absolute Neutrophil Ct (ANC) 3.69 x10^3/uL (1.56-6.13); BASOPHIL % 0.6 % (0.1-1.2); Basophil (Absolute #) 0.05 x10^3/uL (0.01-0.08); Eosinophil % 2.3 % (0.7-5.8); Eosinophil (Absolute #) 0.18 x10^3/uL (0.04-0.36); Hematocrit 40.1 % (34.1-44.9); Hemoglobin 12.8 g/dL (11.2-15.7); IMMATURE GRAN # 0.02 x10^3u/L (0.001-0.031); IMMATURE GRAN % 0.3 % (0.001-0.429); Lymphocyte (Absolute #) 3.12 x10^3/uL (1.18-3.74); Lymphocytes % 39.6 % (19.3-51.7); Mean Cell Volume 87.2 fL (79.4-94.8); Mean Corpuscular Hemoglobin 27.8 pg (25.6-32.2); Mean Corpuscular Hgb Concent. 31.9 g/dL (32.2-35.5); Mean Platelet Volume 10.4 fL (9.4-12.3); Monocyte (Absolute #) 0.82 x10^3/uL (0.24-0.86); Monocytes % 10.4 % (4.7-12.5); Neutrophil % 46.8 % (34.0-71.1); Platelet Count 306 x10^3/uL (182-369); Red Cell Distribution Width 13.2 % (11.7-14.4); White Blood Count 7.9 x10^3/uL (3.98-10.04)
[2024-07-29 06:13] LABS: ALBUMIN 3.5 g/dL (3.5-5.0); ANION GAP 9.3 MEQ/L (5-15); BILIRUBIN,TOTAL 0.3 mg/dL (0.2-1.3); Calcium 8.3 mg/dL (8.4-10.2); Creatinine 1 0.86 mg/dL (0.52-1.04); EST GLOMERULAR FILTRATION RATE 81.7 ML/MIN; Potassium 4.1 mmol/L (3.5-5.1)
[2024-07-29 07:04] VITALS: BP 106/51; PULSE 69; RESP 17; TEMP 96.5
[2024-07-29 07:42] LABS: Appearance Cloudy (Clear); Bacteria Many /HPF (None Seen); Bilirubin Negative (Negative); Blood Negative (Negative); Epithelial Cells Moderate /HPF (None Seen); Glucose, Urine Negative (Negative); Hyaline Casts NONE SEEN /LPF (0-2); Ketones Negative (Negative); Leukocyte Esterase Trace (Negative); Nitrite Negative (Negative); Ph 5.5 (4.6-8.0); Protein,Urine Dip Negative (Negative); Urobilinogen 0.2 mg/dL (0.2)
[2024-07-29 12:28] VITALS: O2SAT 99
== END 2024-07-29 10:09 | disposition home or self-care (01) ==
LOC: ED 03:13 → MED SURG 08:23
PROVIDERS: ADMIT Internal Medicine; ATTEND Internal Medicine
DX: H81.10 Benign paroxysmal vertigo, unspecified ear (principal); E11.9 Type 2 diabetes mellitus without complications; J45.909 Unspecified asthma, uncomplicated; E78.5 Hyperlipidemia, unspecified; Z87.19 Personal history of other diseases of the digestive system; Z79.899 Other long term (current) drug therapy; Z90.49 Acquired absence of other specified parts of digestive tract
CPT/HCPCS: 36415; 70450; 70496; 70498; 70551; 80053; 81001; 82947; 83735; 84443; 84484; 85025; 87086; 93005; 93306; 95992; 96360; 96374; 97110; 97162; 99285; G0378; Q3014; J2405; A9270-GY